=== PATIENT | male | born 1970 | race Caucasian/White ===

== ENCOUNTER 2019-12-15 18:22 | Emergency (ER) | payer OTHER, SELFPAY ==
--- NOTE | 2019-12-15 18:30 | ED.GENADULT ---
HPI - General Adult General Chief complaint: Skin/Abscess/Foreign Body Stated complaint: rash Time Seen by Provider: 12/15/19 18:49 Source: patient Mode of arrival: ambulatory Limitations: no limitations History of Present Illness HPI narrative: 49-year-old male patient presents to the [facility] with complaints of poison alfred and poison sumac for the past 3 to 4 days. Patient states is all over his face, bilateral arms, scalp and upper chest. Patient states that is been very itchy. Patient states he has been trying to use a special wash as well as some [id number] poison alfred ointment. Patient states he has had the oral steroids for this before the past and feels that they do not work as well as the shot. Patient is requesting an IM shot of steroids. Patient did have his left kidney removed due to cancer about a year ago. Patient states he has weaned himself off all of his medications with the help of his doctors and he has been off all of his medications for about a month now due to them upsetting his stomach. Patient states that is another reason why he is not wanting to take oral steroids because he knows that they do upset his stomach. Patient denies any chest pain, shortness of breath, trouble swallowing or any swelling to the lips or face. Related Data Allergies Allergy/AdvReac Type Severity Reaction Status Date / Time No Known Allergies Allergy Verified 12/22/16 16:27 Review of Systems Review of Systems: Narrative: CONSTITUTIONAL: Denies fever, chills, or sweats. EYES: Denies visual changes, redness, or discharge. ENT: Denies rhinorrhea, congestion, sore throat, or otalgia. CARDIOVASCULAR: Denies chest pain, palpitations, or edema. RESPIRATORY: Denies cough or dyspnea. GASTROINTESTINAL: Denies abdominal pain, nausea, vomiting, or diarrhea. GENITOURINARY: Denies dysuria or hematuria. SKIN: Positive rash with itching x3 to 4 days to face, scalp, bilateral upper extremities and upper chest MUSCULOSKELETAL: Denies back pain, joint pain, or myalgia. NEUROLOGIC: Denies headache, numbness, or weakness. PSYCHIATRIC: Denies anxiety or depression. [facility] Past Medical History Medical History CKD (chronic kidney disease), stage III HLD (hyperlipidemia) Social History Social History Smoking status: Former smoker Alcohol intake: never Gender identity (if verbalized by the patient): Male Comments At the time of my signature I agree with nursing past medical history, surgical, social, and family history. There is no relevant family history pertinent to the presenting complaint. Exam Narrative: Exam Narrative: GENERAL: Well-appearing, well-nourished, and in no acute distress. HEAD: Normocephalic, atraumatic. EYES: PERRLA and EOMI. ENT: Nares clear, no rhinorrhea or epistaxis. Mucous membranes moist. NECK: Supple. No lymphadenopathy CHEST: Clear to auscultation. No respiratory distress. HEART: Regular rate and rhythm. No murmur heard. Normal peripheral pulses. ABDOMEN: Soft, nontender, nondistended, normal active bowel sounds. EXTREMITIES: Normal range of motion. No edema. SKIN: Warm, dry, patient has a linear type rashes in various areas to the bilateral upper extremities as well as some swelling and erythema noted to bilateral face. Patient complaining of itching to the scalp nothing obvious seen on the scalp. Patient is a darker skin so it is hard to tell. No obvious rash noted to the back or chest.. NEURO: No focal deficits. Alert and oriented x3. Course Vital Signs Vital signs: Vital Signs Temperature 35.8 C L 12/15/19 18:32 Pulse Rate 66 12/15/19 18:32 Respiratory Rate 16 12/15/19 18:32 Blood Pressure 117/74 12/15/19 18:32 Pulse Oximetry 99 12/15/19 18:32 Temperature 35.8 C L 12/15/19 18:32 Pulse Rate 66 12/15/19 18:32 Respiratory Rate 16 12/15/19 18:32 Blood Pressure
[2019-12-15 18:32] VITALS: BP 117/74; PULSE 66; RESP 16; TEMP 35.8; O2SAT 99
[2019-12-15] MEDS: methylPREDNISolone ACETATE 80 MG/ML VIAL IM (19:14)
== END 2019-12-15 19:25 | disposition home or self-care (01) ==
PROVIDERS: Emergency Provider Nurse Practitioner Family; PCP Emergency Medicine
DX: L25.5 Unspecified contact dermatitis due to plants, except food (principal); Z87.891 Personal history of nicotine dependence; I12.9 Hypertensive chronic kidney disease with stage 1 through stage 4 chronic kidney disease, or unspecified chronic kidney disease; N18.3 Chronic kidney disease, stage 3 (moderate); Z85.528 Personal history of other malignant neoplasm of kidney; Z85.51 Personal history of malignant neoplasm of bladder; Z90.5 Acquired absence of kidney
CPT/HCPCS: 96372; 99213; G0463; J1040

== ENCOUNTER 2020-01-23 18:20 | Emergency (ER) | payer OTHER, SELFPAY ==
--- NOTE | ~2020-01-23 | XR_ITS ---
EXAMINATION: XR hand LT min 3V EXAM DATE: 01/23/2020 19:01 INDICATION: Left hand pain, Cut With Chainsaw 2 Days Go, Pain Near Wrist. TECHNIQUE: Left hand frontal, lateral and oblique projections obtained and reviewed. There is no anton or study for comparison. FINDINGS: Left metacarpal bones are unremarkable. There are no acute fractures or dislocations ident ified. There is no subcutaneous gas. The soft tissue is unremarkable. There are no radiopaque for eign bodies. IMPRESSION: No acute osseous findings. Reviewed, dictated and finalized at location A. IMPRESSION: No acute osseous findings.
[2020-01-23 18:32] VITALS: BP 152/79; PULSE 70; RESP 18; TEMP 36.4; O2SAT 98
--- NOTE | 2020-01-23 18:37 | ED.ABDPAIN ---
HPI - Abdominal Pain General Chief Complaint: Extremity Injury, Upper Stated Complaint: L HAND INJURY 2D AGO Time Seen by Provider: 01/23/20 18:22 Source: patient Mode of arrival: ambulatory Limitations: no limitations History of Present Illness HPI narrative: Patient is a 49-year-old male who presents with hand injuries that occurred 2 days ago while using a chainsaw sustaining multiple lacerations abrasions to the palmar aspect of the left hand at the proximal aspect of the palm patient notes he has been washing and cleaning the wound patient is unsure to his tetanus status patient notes aching pain worse with touch activity and movement denies any erythema lymphangitic streaking fever chills. Related Data Allergies Allergy/AdvReac Type Severity Reaction Status Date / Time No Known Allergies Allergy Verified 01/23/20 18:38 Review of Systems Review of Systems: All systems reviewed & are unremarkable except as noted in HPI and below PMFSH Past Medical History Medical History (Updated 01/23/20 @ 18:39 by Gamaliel Dominique PA-C) CKD (chronic kidney disease), stage III HLD (hyperlipidemia) Social History Social History Smoking status: Former smoker Alcohol intake: never Gender identity (if verbalized by the patient): Male Exam Narrative: Exam Narrative: GENERAL: Well-appearing, well-nourished, and in no acute distress. HEAD: Normocephalic, atraumatic. EYES: PERRLA and EOMI. ENT: Nares clear, no rhinorrhea or epistaxis. Mucous membranes moist. EXTREMITIES: Normal range of motion. No edema. Several small linear lacerations of the palmar aspect of the left hand with slight swelling no erythema no fluctuance purulence lymphangitic streaking noted SKIN: Warm, dry, no rash. NEURO: No focal deficits. Alert and oriented x3. Neurovascularly intact. Capillary refill less than 2 seconds. Normal range of motion and strength of the hand and fingers PSYCH: Normal mood and affect. Course Course Emergency Course: Patient in the room in no distress had x-ray tightness and antibiotics given in the emergency department given hand surgery follow-up agreeing to follow-up as instructed also given reasons to return Vital Signs Vital signs: Vital Signs Temperature 97.5 F L 01/23/20 18:32 Pulse Rate 70 01/23/20 18:32 Respiratory Rate 18 10/23/20 18:32 Blood Pressure 152/79 H 01/23/20 18:32 Pulse Oximetry 98 01/23/20 18:32 Temperature 97.5 F L 01/23/20 18:32 Pulse Rate 70 01/23/20 18:32 Respiratory Rate 18 01/23/20 18:32 Blood Pressure 152/79 H 01/23/20 18:32 Pulse Oximetry 98 01/23/20 18:32 MDM - Abdominal Pain MDM Narrative Medical decision making narrative: Patients injury or pain is consistent with musculoskeletal etiology. No signs of neurological or vascular compromise on exam. Compartments and tisues are soft without signs of compartment syndrome. Pain is felt appropriate for further evaluation on an outpatient basis. Due to the delayed presentation patient will be placed on antibiotics and referred to hand surgery for discussion of delayed closure Imaging Data Radiologist's impression: ITS Impressions Hand X-Ray 01/23/20 19:04 IMPRESSION: No acute osseous findings. Discharge Plan Discharge Clinical Impression: Hand laceration Patient Disposition: Home, Self-Care Condition: Stable Instructions: Antibiotic Form, Acute Wounds (ED) Additional Instructions: Follow-up with hand surgery in the next 3 days to set up for reevaluation take antibiotics as directed. return if symptoms worsen or concerns, any increase in redness swelling pain or fever over 100.5 Clean wound with mild soapy water. Apply antibiotic ointment and clean dressing at least three times daily Follow patient education sheets Prescriptions: New cephalexin [Keflex] 500 mg capsule 500 mg PO Q8H 8 Days Qty: 24 RF: 0 chlorhexidine
[2020-01-23] MEDS: TETANUS,DIPHTHERIA,AC PERTUSSIS ADULT (0.5 ML) BOOSTRIX IM (18:58)
[2020-01-23] MEDS: ceFAZolin SODIUM 1 GM VIAL IM (18:58)
== END 2020-01-23 20:02 | disposition home or self-care (01) ==
PROVIDERS: Emergency Provider Emergency Medicine; PCP Emergency Medicine
DX: S61.412A Laceration without foreign body of left hand, initial encounter (principal); N18.9 Chronic kidney disease, unspecified; E78.5 Hyperlipidemia, unspecified; Z87.891 Personal history of nicotine dependence; Z23 Encounter for immunization; W29.3XXA Contact with powered garden and outdoor hand tools and machinery, initial encounter
CPT/HCPCS: 73130; 90471; 90715; 96372; 99283; J0690

== ENCOUNTER 2021-11-08 20:01 | Emergency (ER) | payer OTHER, SELFPAY ==
--- NOTE | ~2021-11-08 | XR_ITS ---
EXAM: XR knee LT min 4V DATE: 11/08/2021 22:52 HISTORY: left knee laceration . COMPARISON: None available. FINDINGS: Normal mineralization. No fracture or dislocation. No lytic or blastic lesion. Joint space s are maintained. No erosion or periosteal change. Anterior soft tissue laceration. IMPRESSION: No acute osseous finding in the left knee. Reviewed, dictated and finalized at location K.
[2021-11-08 20:20] VITALS: BP 129/86; PULSE 87; RESP 16; TEMP 36.2; O2SAT 100
--- NOTE | 2021-11-08 22:38 | ED.WOUNDLAC ---
HPI - Wound/Laceration General Chief Complaint: Wound/Laceration <Maude Hatch PA-C - Last Filed: 11/08/21 23:25> Stated Complaint: left leg laceration with chainsaw <LOIDA Crocker Last Filed: 11/08/21 23:25> Time Seen by Provider: 11/08/21 22:31 <LOIDA Crocker Last Filed: 11/08/21 23:25> Source: patient <LOIDA Crocker Last Filed: 11/08/21 23:25> Mode of arrival: ambulatory <LOIDA Crocker Last Filed: 11/08/21 23:25> Limitations: no limitations <LOIDA Crocker Last Filed: 11/08/21 23:25> History of Present Illness HPI narrative: This is a 51 year old male that presents to the ER for a laceration to the left knee sustained just prior to arrival. Reports he accidentally cut his left leg with a chainsaw. He is up-to-date on tetanus. Denies decreased range of motion or numbness. <LOIDA Crocker Last Filed: 11/08/21 23:25> Related Data Home Medications: Home Medications Medication Instructions Recorded Confirmed prednisone 10 mg tablet mg 11/08/21 <LOIDA Crocker Last Filed: 11/08/21 23:25> Allergies/Adverse Reactions: Allergies Allergy/AdvReac Type Severity Reaction Status Date / Time No Known Allergies Allergy Verified 11/08/21 22:41 <LOIDA Crocker Last Filed: 11/08/21 23:25> Review of Systems Review of Systems: CONSTITUTIONAL: Denies fever SKIN: Reports laceration NEUROLOGIC: Denies numbness <LOIDA Crocker Last Filed: 11/08/21 23:25> All systems reviewed & are unremarkable except as noted in HPI and below <LOIDA Crocker Last Filed: 11/08/21 23:25> [facility] Past Medical History Medical History: Medical History (Updated 11/09/21 @ 00:00 by Background Daemon) CKD (chronic kidney disease), stage III HLD (hyperlipidemia) <Maude Hatch PA-C - Last Filed: 11/08/21 23:25> Social History Social History: Social History (Updated 11/08/21 @ 22:40 by Maude Hatch PA-C) Smoking status: Current every day smoker Alcohol intake: never Gender identity (if verbalized by the patient): Male <Maude Hatch PA-C - Last Filed: 11/08/21 23:25> Exam Narrative: GENERAL: Well-appearing, well-nourished, and in no acute distress. HEAD: Normocephalic, atraumatic. EYES: EOMI. EXTREMITIES: Normal range of motion. No edema or obvious deformity. Left leg just above the knee with 3cm linear laceration into subcutaneous tissue SKIN: Warm, dry, no rash. NEURO: No focal deficits. Alert and oriented x3. PSYCH: Normal mood and affect <Maude Hatch PA-C - Last Filed: 11/08/21 23:25> Course POCKET CLOSER/PA Physician Supervision For this patient encounter, I reviewed the POCKET CLOSER or PA documentation, treatment plan, and medical decision making <Ethan Deluca MD - Last Filed: 11/09/21 03:17> Vital Signs Vital signs: Vital Signs Temperature 97.2 F L 11/08/21 20:20 Pulse Rate 87 11/08/21 20:20 Respiratory Rate 16 11/08/21 20:20 Blood Pressure 129/86 11/08/21 20:20 Pulse Oximetry 100 11/08/21 20:20 Temperature 97.2 F L 11/08/21 20:20 Pulse Rate 87 11/08/21 20:20 Respiratory Rate 16 11/08/21 20:20 Blood Pressure 129/86 11/08/21 20:20 Pulse Oximetry 100 11/08/21 20:20 <Maude Hatch PA-C - Last Filed: 11/08/21 23:25> Vital Signs Temperature 97.2 F L 11/08/21 20:20 Pulse Rate 87 11/08/21 20:20 Respiratory Rate 16 11/08/21 20:20 Blood Pressure 129/86 11/08/21 20:20 Pulse Oximetry 100 11/08/21 20:20 Temperature 97.2 F L 11/08/21 20:20 Pulse Rate 87 11/08/21 20:20 Respiratory Rate 16 11/08/21 20:20 Blood Pressure 129/86 11/08/21 20:20 Pulse Oximetry 100 11/08/21 20:20 <Ethan Deluca MD - Last Filed: 11/09/21 03:17> Procedures Laceration Laceration 1: Date: 11/08/21 <Maude Hatch PA-C - Last Filed: 11/08/21 23:25> Time:
[2021-11-08] MEDS: HYDROcodone/acetaminophen (*CRX) 5-325 MG TABLET 1 TAB PO (23:24)
== END 2021-11-08 23:30 | disposition home or self-care (01) ==
PROVIDERS: Emergency Provider Emergency Medicine; PCP Emergency Medicine
DX: S81.012A Laceration without foreign body, left knee, initial encounter (principal); W29.3XXA Contact with powered garden and outdoor hand tools and machinery, initial encounter
CPT/HCPCS: 12002; 73564; 99283; A9270

== ENCOUNTER 2022-08-20 12:55 | Emergency (ER) | payer OTHER, SELFPAY ==
[2022-08-20 13:07] VITALS: BP 136/92; PULSE 86; RESP 17; TEMP 36.8; O2SAT 100
--- NOTE | 2022-08-20 13:35 | ED.GENADULT ---
HPI - General Adult General Chief complaint: Dental/Oral Stated complaint: tooth infection Time Seen by Provider: 08/20/22 13:16 History of Present Illness HPI narrative: Juan Valencia is a 52 y/o male who presents with reports of ongoing dental pain that started about a month ago. He saw a dentist a month ago and was getting set up to have his teeth removed, but he has not heard back. He reports his dental pain has become worse the past few days so he came in here. Related Data Allergies Allergy/AdvReac Type Severity Reaction Status Date / Time No Known Allergies Allergy Verified 08/20/22 12:55 Review of Systems Review of Systems: CONSTITUTIONAL: Denies fever, chills, or sweats. EYES: Denies visual changes, redness, or discharge. ENT: Upper and lower tooth pain for 1 month that is worse over the past few days. CARDIOVASCULAR: Denies chest pain, palpitations, or edema. RESPIRATORY: Denies cough or dyspnea. GASTROINTESTINAL: Denies abdominal pain, nausea, vomiting, or diarrhea. GENITOURINARY: Denies dysuria or hematuria. SKIN: Denies rash or itching. MUSCULOSKELETAL: Denies back pain, joint pain, or myalgia. NEUROLOGIC: Denies headache, numbness, dizziness, or weakness. PSYCHIATRIC: Denies anxiety or depression. [facility] Past Medical History Medical History (Updated 08/20/22 @ 14:08 by Leeann Woods APRN) CKD (chronic kidney disease), stage III HLD (hyperlipidemia) Social History Social History Smoking status: Current every day smoker Alcohol intake: never Gender identity (if verbalized by the patient): Male Exam Narrative: GENERAL: Well-appearing, well-nourished, and in no acute distress. HEAD: Normocephalic, atraumatic. EYES: PERRLA and EOMI. ENT: Nares clear, no rhinorrhea or epistaxis. Mucous membranes moist. Oropharynx without tonsillar hypertrophy exudate or other lesions. Patient noted to have dental infection/ carries to left upper and right lower. No obvious abscess noted that needs to be drained today., NECK: Supple. No adenopathy or masses. CHEST: Clear to auscultation. No respiratory distress. No wheezes rales or rhonchi HEART: Regular rate and rhythm. No murmur heard. Normal peripheral pulses. ABDOMEN: Soft, nontender, nondistended, normal active bowel sounds. EXTREMITIES: Normal range of motion. No edema. SKIN: Warm, dry, no rash. NEURO: No focal deficits. Alert and oriented x3. PSYCH: Normal mood and affect. Course Vital Signs Vital signs: Vital Signs Temperature 36.8 C 08/20/22 13:07 Pulse Rate 86 08/20/22 13:07 Respiratory Rate 17 08/20/22 13:07 Blood Pressure 136/92 H 08/20/22 13:07 Pulse Oximetry 100 08/20/22 13:07 Oxygen Delivery Room Air 08/20/22 13:07 Temperature 36.8 C 08/20/22 13:07 Pulse Rate 86 08/20/22 13:07 Respiratory Rate 17 08/20/22 13:07 Blood Pressure 136/92 H 08/20/22 13:07 Pulse Oximetry 100 08/20/22 13:07 Oxygen Delivery Room Air 08/20/22 13:07 vitals reviewed by me Medical Decision Making MDM Narrative Medical decision making narrative: patient with complaints of dental pain Notable dental decay on exam No airway compromise No obvious abscess needing to be drained. No fever/ chills Plan to treat his pain and start him on oral antibiotics with strict instruction to follow up with his dentist tomorrow to get the appointment scheduled to have his teeth removed. Pateint agrees with plan. Differential Diagnosis Differential Diagnosis: Dental infection / Dental abscess/ tooth decay Vital Signs Vital Signs: Vital Signs Temperature 36.8 C 08/20/22 13:07 Pulse Rate 86 08/20/22 13:07 Respiratory Rate 17 08/20/22 13:07 Blood Pressure 136/92 H 08/20/22 13:07 Pulse Oximetry 100 08/20/22 13:07 Oxygen Delivery Room Air 08/20/22 13:07 Temperature 36.8 C 08/20/22 13:07 Pulse Rate 86 08/20/22 13:07 Respiratory Ra
[2022-08-20] MEDS: HYDROcodone/acetaminophen (*CRX) 5-325 MG TABLET 1 TAB PO (13:43)
[2022-08-20] MEDS: PENICILLIN V POTASSIUM 250 MG TABLET 500 MG PO (13:44)
[2022-08-20] MEDS: LIDOCAINE HCL 2% VISC SOLN 15 ML UDC 10 ML PO (13:48)
[2022-08-20] MEDS: NAPROXEN 500 MG TABLET PO (13:51)
== END 2022-08-20 14:24 | disposition home or self-care (01) ==
PROVIDERS: Emergency Provider Nurse Practitioner Family; PCP Emergency Medicine
DX: K04.7 Periapical abscess without sinus (principal); K02.9 Dental caries, unspecified; N18.30 Chronic kidney disease, stage 3 unspecified; E78.5 Hyperlipidemia, unspecified; F17.200 Nicotine dependence, unspecified, uncomplicated
CPT/HCPCS: 99283; A9270

== ENCOUNTER 2022-08-22 14:42 | Outpatient (CLI) | payer OTHER, SELFPAY ==
--- NOTE | ~2022-08-22 | US_ITS ---
US scrotum doppler INDICATION: Testicular pain TECHNIQUE: Testicular sonogram utilizing grayscale and color Doppler FINDINGS: The testes are normal in size and appearance. No focal lesions are seen. The right testes measures 4.8 x 1.8 x 2.7 cm centimeters, and the left testis measures 4 x 1.8 x 2.5 cm cm. There is n ormal vascular flow to both testes. The right and left epididymides appear normal. There are bilateral varicoceles. No significant hydrocele. IMPRESSION: 1. Bilateral varicoceles. Reviewed, dictated and finalized at location L. IMPRESSION: 1. Bilateral varicoceles.
== END 2022-08-22 14:43 | disposition home or self-care (01) ==
LOC: ANHIMG 14:42
PROVIDERS: PCP Emergency Medicine; Visit Provider Emergency Medicine
DX: N50.819 Testicular pain, unspecified (principal); I86.1 Scrotal varices
CPT/HCPCS: 76870; 93976

== ENCOUNTER 2022-08-29 10:10 | Emergency (ER) | payer OTHER, SELFPAY ==
[2022-08-29] VITALS (13 sets, daily range): BP systolic 118–144; BP diastolic 78–97; PULSE 42–73; RESP 11–18; TEMP 36.4; O2SAT 99–100
--- NOTE | ~2022-08-29 | CT_ITS ---
EXAMINATION: CT brain wo con DATE: 08/29/2022 13:01 INDICATION: Bladder cancer. Confusion. TECHNIQUE: Computed tomography (CT) of the head was performed without intravenous contrast. The mA wa s adjusted according to patient size. Iterative reconstruction technique was employed. The dose-lengt h product was 681.00 mGy-cm. COMPARISON: None FINDINGS: There is a 2.0 x 1.7 cm hyperdense mass in right parietal lobe with surrounding vasogenic e darien. There is no acute ischemic infarct. There is 8 mm leftward midline shift at the foramen of Monr o. There is mass effect on the ventricles. There is mild mucosal thickening in the paranasal sinuses. The mastoid air cells are normal. There is cerumen in the external auditory canals. IMPRESSION: 1. 2.0 cm hyperdense mass in right parietal lobe, consistent metastatic disease. 2. 8 mm leftward midline shift. Reviewed, dictated and finalized at location L. IMPRESSION: 1. 2.0 cm hyperdense mass in right parietal lobe, consistent metastatic disease . 2. 8 mm leftward midline shift.
--- NOTE | ~2022-08-29 | CT_ITS ---
EXAMINATION: CTA chest PE abdomen pel DATE: 08/29/2022 13:05 INDICATION: Bladder cancer. Shortness of breath. TECHNIQUE: Computed tomography angiography (CTA) of the chest was performed with 100 mL Omnipaque-350 intravenous contrast timed to evaluate the pulmonary arteries. Coronal maximum intensity projection 3D-reconstructions were created by the technologist. Computed tomography (CT) of the abdomen and pelv is was performed with intravenous contrast. Automated exposure control and iterative reconstruction t echnique were employed. The dose-length product was 725.10 mGy-cm. COMPARISON: CT abdomen and pelvis 05/24/2018 FINDINGS: CTA chest: There are greater than 10 nodules and masses in the lungs measuring up to 3.3 cm in perihi lar right middle lobe. There is mild atelectasis bilaterally. No pleural effusion. The heart size is normal. No pericardial effusion. There are no pathologically enlarged lymph nodes. Is no pulmonary em bolus. There is a 4.6 x 3.9 cm expansile lytic lesion of left second rib. CT abdomen and pelvis: The liver, gallbladder, spleen, pancreas, adrenal glands, and right kidney are normal. There are changes of left nephrectomy. There are no dilated loops of bowel. The appendix is not visualized. There are no pathologically enlarged lymph nodes. There is no free intraperitoneal fl uid. There is a lytic lesion in L1 vertebral body with involvement of the epidural space and left for amen with severe left neural foraminal stenosis and mild central canal stenosis. There is mild lumbar spondylosis. IMPRESSION: 1. Pulmonary nodules and masses and bone lesions, consistent metastatic disease. Reviewed, dictated and finalized at location L. IMPRESSION: 1. Pulmonary nodules and masses and bone lesions, consistent metastatic disease .
--- NOTE | ~2022-08-29 | XR_ITS ---
Portable chest x-ray Comparison: 05/12/2018 Clinical History: Chest pain, recently diagnosed with bladder cancer Findings: There is a 1.7 cm possibly calcified right midlung pulmonary nodule, new from prior exam. There is suggestion of a pleural-based or possibly subpleural masslike density at the left lung apex. Cardiomediastinal silhouette is stable. Bones and soft tissues are unremarkable. Impression: 4.8 cm pleural-based or subpleural masslike density at the left lung apex. Contrast-enhanced chest CT recommended for further evaluation. Given history of recently diagnosed bladder cancer, metastasis i s diagnostic consideration. 1.7 cm possibly calcified right midlung pulmonary nodule. Metastasis is not excluded. This could also be further assessed at CT scan. Reviewed, dictated and finalized at [facility]. Impression: 4.8 cm pleural-based or subpleural masslike density at the left lung apex. Cont rast-enhanced chest CT recommended for further evaluation. Given history of rec ently diagnosed bladder cancer, metastasis is diagnostic consideration. 1.7 cm possibly calcified right midlung pulmonary nodule. Metastasis is not exc luded. This could also be further assessed at CT scan.
--- NOTE | 2022-08-29 10:37 | ECG_ITS ---
Measurements Intervals Hughes Rate: 58 P: 78 RI: 164 QRS: 37 QRSD: 98 T: 62 QT: 408 QTc: 403 Interpretive Statements SINUS BRADYCARDIA CANNOT RULE OUT SEPTAL INFARCT, AGE INDETERMINATE BASELINE ARTIFACT- I, II, AVR, AVL, AVF ABNORMAL ECG NO PREVIOUS ECG AVAILABLE FOR COMPARISON Electronically Signed On 08-29-2022 12:11:02 CDT by Francesco Jha D.O.
[2022-08-29 11:07] LABS: Basophils Percent Auto 0.4 % (0.2-1.2); Eosinophils Percent Auto 0.3 % (0-4.4); Hematocrit 36.2 % (42.0-52.0); Hemoglobin 11.2 g/dL (14.0-18.0); Immature Granulocyte Absolute 0.03 K/mm3 (0.00-0.031); Immature Granulocyte Percent A 0.3 % (0-0.5); Lymphocytes Absolute Auto 1.37 K/mm3 (0.9-3.2); Lymphocytes Percent Auto 13.2 % (18.3-44.2); Mean Corpuscular HGB Conc 30.9 g/dl (32-36); Mean Corpuscular Hemoglobin 27.8 pg (26-34); Mean Corpuscular Volume 89.8 fl (80-100); Mean Platelet Volume 9.2 fl (7.4-10.4); Monocytes Absolute Auto 0.7 K/mm3 (0.1-0.6); Monocytes Percent Auto 6.5 % (2.6-8.5); Neutrophils Absolute Auto 8.2 K/mm3 (1.3-6.7); Neutrophils Percent Auto 79.3 % (45.5-73.1); Platelet Count Result 336 k/mm3 (150-375); Red Blood Count 4.03 M/mm3 (4.6-6.20); Red Cell Distribution Width 14.5 % (11.5-14.5); White Blood Count 10.4 K/mm3 (4.5-10.0)
[2022-08-29] MEDS: SODIUM CHLORIDE 0.9% IV 1,000 ML 999 ML IV CONT (11:13)
[2022-08-29 11:23] LABS: INR 1.1; Prothrombin Time 14.5 Seconds (11.1-14.7)
[2022-08-29 11:24] LABS: Partial Thromboplastin Time 37.7 SECONDS (22.3-36.8)
[2022-08-29 11:34] LABS: Ethanol < 10 mg/dL (<10)
[2022-08-29 11:35] LABS: Alanine Aminotransferase 16 U/L (6-50); Albumin Level 3.9 g/dL (3.5-5.1); Alkaline Phosphatase 85 U/L (38-126); Anion Gap 9 mmol/L (8-16); Aspartate Amino Transferase 20 U/L (17-59); Bilirubin,Total 0.4 mg/dL (0.2-1.3); Blood Urea Nitrogen 13 mg/dL (9-20); Calcium 9.5 mg/dL (8.4-10.2); Carbon Dioxide 26 mmol/L (22-30); Chloride 104 mmol/L (98-107); Estimated CRCL calculation 76 ml/min; Estimated Glomerular Filt Rate > 60; Glucose 114 mg/dL (65-110); Lipase 76 U/L (23-300); Sodium 139 mmol/L (137-145)
[2022-08-29 11:46] LABS: NT Pro B Type Natriuretic Pept 398 pg/mL (19.9-100); Troponin I < 0.012 ng/mL (0.000-0.034)
[2022-08-29 12:02] LABS: SARS-CoV-2 RNA PCR Negative (Negative)
--- NOTE | 2022-08-29 12:41 | ED.GENADULT ---
HPI - General Adult General Chief complaint: Unspecified Stated complaint: MULTIPLE COMPLAINTS Time Seen by Provider: 08/29/22 10:24 Source: patient, family, RN notes reviewed and old records reviewed Mode of arrival: ambulatory Limitations: no limitations History of Present Illness HPI narrative: This is a 52 year old male with history of recurrent bladder cancer and renal cell carcinoma who presents for evaluation of homicidal ideations and dizziness. Patient reports long standing dental pain and right jaw pain. He was evaluated 1 week ago for his jaw pain and he was prescribed naproxen and penicillin. He states that he is frustrated with dentist and he states that he wants to kill the dentist. He also told his significant other that he was tired of being pain so he was going to shoot his brains out. Patient denies suicidal thoughts now. There is no access to firearm in home. They also reports dizziness and intermittent episodes in which he does not seem like himself. He reports nausea and vomiting over the past 2 days. He has intermittent right side chest pain and shortness of breath. He denies fever or chills. Related Data Allergies Allergy/AdvReac Type Severity Reaction Status Date / Time No Known Allergies Allergy Verified 08/20/22 12:55 Review of Systems Constitutional: Constitutional: Reports fatigue and Reports weakness ENT: Reports dental pain and Reports facial pain Cardiovascular: Cardiovascular: Denies syncope, Denies rapid heart rate, Denies irregular heart rhythm, Denies leg edema and Reports dyspnea Respiratory: Respiratory: Denies chest congestion, Denies hemoptysis, Denies excessive phlegm production and Reports dyspnea Gastrointestinal: Gastrointestinal: Denies abdominal pain, Denies hematochezia, Denies diarrhea, Reports nausea and Reports vomiting Genitourinary: Genitourinary: Denies hematuria, Denies dysuria, Denies penile discharge and Denies testicular pain Musculoskeletal: Musculoskeletal: Denies joint swelling, Denies loss of height and Denies muscle weakness Neurologic: Denies syncope, Reports headache(s), Denies focal weakness and Denies weakness Psychiatric: Psychiatric: Reports homicidal ideation and Reports suicidal ideation [facility] Past Medical History Medical History (Updated 08/29/22 @ 19:31 by Paulette Canseco MD) Bladder tumor CKD (chronic kidney disease), stage III Essential hypertension HLD (hyperlipidemia) Hypertension Mixed hyperlipidemia Renal cell cancer Surgical History Surgical History (Updated 08/29/22 @ 12:52 by Paulette Canseco MD) History of nephrectomy Social History Social History Smoking status: Current every day smoker Alcohol intake: never Gender identity (if verbalized by the patient): Male Exam Narrative: GENERAL: Well-appearing, well-nourished, and in no acute distress. HEAD: Normocephalic, atraumatic EYES: PERRLA and EOMI, conjunctiva clear without discharge EARS: TM's clear bilaterally without erythema or dullness NOSE: Nares clear, no rhinorrhea or epistaxis THROAT:Mucous membranes moist, Oropharynx normal without erythema, exudate, peritonsillar swelling or fluctuance NECK: Supple, without lymphadenopathy or mass RESPIRATORY: No respiratory distress, Airway patent, Respirations non-labored, Clear to auscultation without rales, rhonchi or wheeze HEART: Regular rate and rhythm. No murmur heard. Normal peripheral pulses. ABDOMEN: Soft, nontender, nondistended, normal active bowel sounds. No masses. No rebound or guarding, No organomegaly. EXTREMITIES: No edema, normal strength with full range of motion. SKIN: Warm, dry, normal color without rash NEURO: Alert and oriented x3. CN 2-12 grossly intact. No focal deficits. PSYCH: Normal mood and affect. Course Reevaluation(s) Reevaluation #1: Patient has been awaiting transfer to [facility] for brain mets. I have discussed with
[2022-08-29 12:48] LABS: Appearance Urine Clear (Clear); Bacteria Urine None Seen /hpf; Bilirubin Urine Negative (Negative); Blood Urine 3+ (Negative); Color Urine Yellow (Yellow); Glucose Urine UA Negative (Negative); Ketones Urine Negative (Negative); Leukocyte Esterase Ur Negative LEU/UL (Negative); Nitrate Urine Negative (Negative); Non Pathogenic Casts 0-2; Protein Urine 2+ mg/dL (Negative); RBC Urine >100 /hpf (0-2); Squamous Epithelial Cell Urine None seen /hpf (Few); WBC Urine 0-5 /hpf
[2022-08-29 12:54] LABS: Add Urine Microscopic? YES
[2022-08-29 13:00] LABS: Amphetamine Screen Urine Negative (Negative); Barbiturate Screen Urine Negative (Negative); Benzodiazepines Screen Urine Negative (Negative); Cannabinoid Screen Urine Positive (Negative); Cocaine Screen Urine Negative (Negative); Methadone Screen Urine Negative (Negative); Opiate Screen Urine Negative (Negative); Phencyclidine Screen Urine Negative (Negative)
[2022-08-29] MEDS: ONDANSETRON INJ 4 MG/2 ML VIAL IV PUSH (14:22)
[2022-08-29] MEDS: MORPHINE SULFATE (*CRX) 4 MG/ML INJ 6 MG IV PUSH (14:23)
[2022-08-29] MEDS: MORPHINE SULFATE (*CRX) 4 MG/ML INJ IV PUSH (22:20)
== END 2022-08-29 23:45 | disposition short-term general hospital (02) ==
PROVIDERS: Emergency Provider General Practice; PCP Emergency Medicine
DX: C79.31 Secondary malignant neoplasm of brain (principal); C67.9 Malignant neoplasm of bladder, unspecified; Z20.822 Contact with and (suspected) exposure to COVID-19; I12.9 Hypertensive chronic kidney disease with stage 1 through stage 4 chronic kidney disease, or unspecified chronic kidney disease; N18.30 Chronic kidney disease, stage 3 unspecified; E78.2 Mixed hyperlipidemia; Z90.5 Acquired absence of kidney; Z85.528 Personal history of other malignant neoplasm of kidney; F17.200 Nicotine dependence, unspecified, uncomplicated; R00.1 Bradycardia, unspecified; R94.31 Abnormal electrocardiogram [ECG] [EKG]; R91.8 Other nonspecific abnormal finding of lung field; M89.9 Disorder of bone, unspecified
CPT/HCPCS: 36415; 70450; 71045; 71275; 74177; 80053; 80307; 81001; 83690; 83880; 84443; 84484; 85025; 85380; 85610; 85730; 87635; 93005; 96361; 96374; 96375; 96376; 99291; J2270; J2405; J7030; Q9967

== ENCOUNTER 2023-05-21 21:03 | Emergency (ER) | payer OTHER, SELFPAY ==
--- NOTE | ~2023-05-21 | CT_ITS ---
Clinical Indication: Shortness of breath CT Scan of the Chest with Contrast: Technique: Contiguous sections were acquired throughout the chest after intravenous administration of 100 cc of Omnipaque 350. Dose reduction technique was used on this scan by utilizing automated expos ure control and iterative reconstruction technique. The dose-length product (DLP) was 231.87 mGy-cm. COMPARISON: 08/29/2022 Findings: There is no evidence of any significant mediastinal, hilar or axillary lymphadenopathy. There is no f illing defect in the pulmonary arterial tree to suggest pulmonary embolus. There is no evidence of ao rtic aneurysm. Small pericardial effusion. No pleural effusions.. The lungs are clear. No pulmonary nodules or infiltrates are noted. Images through the upper abdomen reveal no abnormalities. Expansile lytic/destructive lesion of the l eft second rib noted. Partial versus lytic lesion of the L2 vertebral body present. Impression: No evidence of pulmonary embolus. Clear lungs. Lytic/expansile lesions of the left second rib at L2 vertebral body, suspicious for metastatic diseas e. Small pericardial effusion. Reviewed, dictated and finalized at [facility]. TYPIST Impression: No evidence of pulmonary embolus. Clear lungs. Lytic/expansile lesions of the left second rib at L2 vertebral body, suspicious for metastatic disease. Small pericardial effusion.
--- NOTE | ~2023-05-21 | XR_ITS ---
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 RESULT: Lines, tubes, and devices: None. Lungs and pleura: Mild diffuse reticular opacities and cuffing. No pulmonary nodules identified. No focal consolidation, effusion, or pneumothorax. Cardiomediastinal silhouette: Stable. Other: No acute osseous or upper abdominal finding. Increased calcification and slightly decreased s ize of the left apical rib lesion. IMPRESSION: Pulmonary opacities may represent bronchiolitis, as can be seen with atypical infection, asthma, aspi ration, and small airways disease. Multiple previously detected pulmonary nodules are not seen radiographically, likely indicating inter mauro treatment. Increased calcification and decreased size of the lytic left second rib lesion in the left apex, also likely represent posttreatment change. Reviewed, dictated and finalized at location [facility]. SYSTEM OPERATOR IMPRESSION: Pulmonary opacities may represent bronchiolitis, as can be seen with atypical i nfection, asthma, aspiration, and small airways disease. Multiple previously detected pulmonary nodules are not seen radiographically, l ikely indicating interval treatment. Increased calcification and decreased size of the lytic left second rib lesion in the left apex, also likely represent posttreatment change.
[2023-05-21 21:08] VITALS: BP 107/64; PULSE 121; RESP 15; TEMP 36.2; O2SAT 100
--- NOTE | 2023-05-21 21:16 | ECG_ITS ---
Measurements Intervals [place] Rate: 118 P: 74 KS: 158 QRS: -52 QRSD: 100 T: 71 QT: 341 QTc: 478 Interpretive Statements SINUS TACHYCARDIA POSSIBLE LEFT ATRIAL ENLARGEMENT [-0.1mV P WAVE IN V1/V2] MARKED LEFT AXIS DEVIATION [QRS AXIS < -30] EARLY REPOLARIZATION [ST ELEVATION WITH NORMALLY INFLECTED T WAVE] COMPARED TO ECG 08/29/2022 10:45:47 SINUS TACHYCARDIA NOW PRESENT LEFT-AXIS DEVIATION NOW PRESENT Electronically Signed On 05-22-2023 15:20:47 RETAIL SPECIALIST by Abiodun Floyd M.D.
[2023-05-21 21:35] LABS: Basophils Percent Auto 0.4 % (0.2-1.2); Eosinophils Absolute Auto 0.2 K/mm3 (0-0.3); Eosinophils Percent Auto 2.1 % (0-4.4); Hematocrit 45.7 % (42.0-52.0); Hemoglobin 15.5 g/dL (14.0-18.0); Immature Granulocyte Absolute 0.02 K/mm3 (0.00-0.031); Immature Granulocyte Percent A 0.3 % (0-0.5); Lymphocytes Percent Auto 27.6 % (18.3-44.2); Mean Corpuscular HGB Conc 33.9 g/dl (32-36); Mean Corpuscular Hemoglobin 31.6 pg (26-34); Mean Corpuscular Volume 93.3 fl (80-100); Mean Platelet Volume 9.5 fl (7.4-10.4); Monocytes Percent Auto 12.3 % (2.6-8.5); Neutrophils Absolute Auto 4.6 K/mm3 (1.3-6.7); Neutrophils Percent Auto 57.3 % (45.5-73.1); Platelet Count Result 204 k/mm3 (150-375)
[2023-05-21 21:45] LABS: INR 1.1; Prothrombin Time 14.9 Seconds (11.1-14.7)
[2023-05-21 21:46] LABS: Partial Thromboplastin Time 43.7 SECONDS (22.3-36.8)
[2023-05-21 22:00] LABS: Alanine Aminotransferase 19 U/L (6-50); Albumin Level 4.3 g/dL (3.5-5.1); Alkaline Phosphatase 82 U/L (38-126); Anion Gap 10 mmol/L (8-16); Aspartate Amino Transferase 41 U/L (17-59); Bilirubin,Total 0.7 mg/dL (0.2-1.3); Blood Urea Nitrogen 19 mg/dL (9-20); Calcium 9.9 mg/dL (8.4-10.2); Carbon Dioxide 22 mmol/L (22-30); Chloride 100 mmol/L (98-107); Estimated CRCL calculation 61 ml/min; Estimated Glomerular Filt Rate > 60; Glucose 129 mg/dL (65-110); Lipase 88 U/L (23-300); Potassium 3.9 mmol/L (3.4-5.0); Sodium 132 mmol/L (137-145); Troponin I 0.014 ng/mL (0.000-0.034)
[2023-05-22] VITALS (17 sets, daily range): BP systolic 86–121; BP diastolic 64–84; PULSE 105–115; RESP 20–35; O2SAT 95–99
[2023-05-22 02:10] LABS: Troponin I < 0.012 ng/mL (0.000-0.034)
[2023-05-22 02:22] LABS: Influenza A QL RT-PCR Negative (Negative); Influenza B QL RT-PCR Negative (Negative); RSV RNA, RT-PCR Negative (Negative); SARS-CoV-2 RNA PCR Negative (Negative)
[2023-05-22] MEDS: SODIUM CHLORIDE 0.9% IV 1,000 ML 999 ML IV CONT (02:43)
--- NOTE | 2023-05-22 03:19 | ED.GENADULT ---
HPI - General Adult General Chief complaint: Unspecified <Ethan Deluca MD - Last Filed: 05/23/23 05:59> Stated complaint: back and neck pain <Ethan Deluca MD - Last Filed: 05/23/23 05:59> Time Seen by Provider: 05/22/23 02:36 <Ethan Deluca MD - Last Filed: 05/23/23 05:59> History of Present Illness HPI narrative: 53-year-old male presenting to the emergency department for evaluation of pleuritic chest pain. Patient states on Sunday he began developing neck pain and body aches and that the symptoms resolved but patient has since had chest pain that he states is worsened with inspiration. Patient denies any associated coughs colds or fevers. Patient denies any previous cardiac history. <Ethan Deluca MD - Last Filed: 05/23/23 05:59> Related Data Allergies/adverse reactions: Allergies Allergy/AdvReac Type Severity Reaction Status Date / Time No Known Allergies Allergy Verified 02/12/23 10:37 <Ethan Deluca MD - Last Filed: 05/23/23 05:59> Review of Systems Review of Systems: All systems reviewed & are unremarkable except as noted in HPI and below <Ethan Deluca MD - Last Filed: 05/23/23 05:59> PMFSH Past Medical History Medical History: Medical History Bladder tumor CKD (chronic kidney disease), stage III Essential hypertension HLD (hyperlipidemia) Hypertension Mixed hyperlipidemia Renal cell cancer <Ethan Deluca MD - Last Filed: 05/23/23 05:59> Surgical History Surgical History: Surgical History H/O brain surgery History of nephrectomy <Ethan Deluca MD - Last Filed: 05/23/23 05:59> Social History Social History: Social History Smoking status: Current every day smoker Alcohol intake: never Lack of Transportation: No Lack of Food: Sometimes True Current Housing: I Have Housing Concerned About Future Housing: No Difficulty Paying Gas/Electric Bills: YES Difficulty Paying for Meds: No Difficulty w/ Childcare or Family Care: No Gender identity (if verbalized by the patient): Male <Ethan Deluca MD - Last Filed: 05/23/23 05:59> Exam Narrative: APPEARANCE: Well appearing, no pain, no distress, well-nourished. HEAD: normocephalic, atraumatic. EYES: PERRLA/EOMI, conjunctivae clear. NOSE: Normal no drainage EARS:TMS clear with good light reflex. THROAT: Pharynx clear, no exudate. NECK: Supple. No adenopathy, no masses. RESPIRATORY: Airway patent, respirations nonlabored. Clear to auscultation bilaterally, no rales, rhonchi, wheezing. CARDIOVASCULAR: Regular rate and rhythm without murmurs rubs or gallops. ABDOMINAL: Soft, nontender, nondistended, normal bowel sounds MUSCULOSKELETAL: Moves all extremities. Strength/ROM intact, No edema, No calf tenderness. Reproducible chest wall tenderness to palpation NEURO: Alert. Cranial nerves II through XII intact. Good gait. Good coordination SKIN: Warm, dry. Normal Color <Ethan Deluca MD - Last Filed: 05/23/23 05:59> Course Course Emergency Course: 53-year-old male presenting to emergency department for evaluation for pleuritic chest pain. Patient is afebrile with no leukocytosis and a stable hemoglobin of 15.5. No acute abnormalities on the patient's CMP and patient had negative serial troponin and patient was negative for influenza RSV and COVID. Chest x-ray showed pulmonary opacities may represent bronchiolitis, as can be seen with atypical infection, asthma, aspiration, and small airways disease. CTA showed evidence a pericardial effusion. Patient is established with [facility]/ [facility], patient family were comfortable staying here but discussed the case with the hospitalists and she felt the patient will be better served in the [facility] system. <Ethan Deluca MD - Last Filed:
[2023-05-22] MEDS: HYDROmorphone HCL INJ (*CRX) 1 MG/ML SYR IV PUSH ×2 (03:26→06:07)
[2023-05-22] MEDS: ALBUTEROL SULFATE NEB 2.5 MG/3 ML INH INHALATION (03:36)
--- NOTE | 2023-05-22 05:46 | ECG_ITS ---
Measurements Intervals [place] Rate: 106 P: [place]: 0 QRS: -38 QRSD: 89 T: 64 QT: 337 QTc: 449 Interpretive Statements SINUS TACHCYARDIA MARKED LEFT AXIS DEVIATION [QRS AXIS < -30] SEPTAL MYOCARDIAL INFARCTION , OF INDETERMINATE AGE [40+ ms Q WAVE IN V1/V2] COMPARED TO ECG 05/21/2023 21:22:44 NO SIGNIFICANT CHANGES Electronically Signed On 05-22-2023 15:30:55 MEAT CUTTER by Abiodun Floyd M.D.
[2023-05-22 06:39] LABS: Troponin I < 0.012 ng/mL (0.000-0.034)
--- NOTE | 2023-05-22 06:56 | PC.NURSE ---
Pt accepted at [facility]. This RN spoke to xfr line. Awaiting bed assignment, should be shortly after shift change per xfr line.
--- NOTE | 2023-05-22 07:02 | PC.NURSE ---
Radha in XRAY making disc.
--- NOTE | 2023-05-22 07:12 | PC.NURSE ---
Report given to MICHELLE Alston at this time.
--- NOTE | 2023-05-22 08:55 | PC.NURSE ---
Notified EDP that pt is c/o of pain. Pt states he has been in pain since he has been here. Pt states the [facility] is not working for him and he cant believe he is still in this hospital. Pt states he getting very irritable pt is becoming unpleasant. Spoke with pt and stated MD is aware.
[2023-05-22] MEDS: fentaNYL CITRATE INJ (*CRX) 100 MCG/2 ML VIAL 50 MCG IV PUSH (09:28)
[2023-05-22] MEDS: KETOROLAC 15 MG/ML VIAL (*BKC) IV PUSH (09:33)
--- NOTE | 2023-05-22 10:40 | PC.NURSE ---
1032- Called [facility] transfer for update-still waiting on bed at [facility], will know more after possible discharges this afternoon.
--- NOTE | 2023-05-22 13:39 | PC.NURSE ---
patient has bed available at [address]. call report to [phone]
--- NOTE | 2023-05-22 14:34 | PC.NURSE ---
ismael at [facility] aware patient leaving at this time
== END 2023-05-22 14:34 | disposition short-term general hospital (02) ==
PROVIDERS: Emergency Provider Emergency Medicine; PCP Emergency Medicine
DX: I30.9 Acute pericarditis, unspecified (principal); Z20.822 Contact with and (suspected) exposure to COVID-19; I12.9 Hypertensive chronic kidney disease with stage 1 through stage 4 chronic kidney disease, or unspecified chronic kidney disease; N18.30 Chronic kidney disease, stage 3 unspecified; E78.2 Mixed hyperlipidemia; Z85.528 Personal history of other malignant neoplasm of kidney; Z90.5 Acquired absence of kidney; R94.31 Abnormal electrocardiogram [ECG] [EKG]; R00.0 Tachycardia, unspecified
CPT/HCPCS: 36415; 71046; 71275; 80053; 83690; 84484; 85025; 85610; 85730; 87637; 93005; 94640; 96361; 96374; 96375; 96376; 99285; J1170; J1885; J3010; J7030; Q9967

== ENCOUNTER 2023-07-22 22:39 | Observation (INO) | payer OTHER, SELFPAY ==
[2023-07-22] VITALS (8 sets, daily range): BP systolic 112–120; BP diastolic 72–85; PULSE 106–116; RESP 19–33; TEMP 36.1; O2SAT 98–100
--- NOTE | ~2023-07-22 | CT_ITS ---
EXAMINATION: CTA chest PE abdomen pel DATE: 07/23/2023 00:12 INDICATION: Chest pain. Abdominal pain. TECHNIQUE: Computed tomography angiography (CTA) of the chest was performed with 100 mL Omnipaque-350 intravenous contrast timed to evaluate the pulmonary arteries. Coronal maximum intensity projection 3D-reconstructions were created by the technologist. Computed tomography (CT) of the abdomen and pelv is was performed with intravenous contrast. Automated exposure control and iterative reconstruction t echnique were employed. The dose-length product was 423.09 mGy-cm. COMPARISON: Chest CT 05/22/23, CT 08/29/2022 FINDINGS: CTA chest: There is smooth septal thickening in the lungs, consistent mild pulmonary edema. There is mild atelectasis bilaterally. There are small pleural effusions. The heart size is normal. There is a moderate-sized pericardial effusion. There is pericardial thickening and enhancement. There is no pu lmonary embolus. CT abdomen and pelvis: There is periportal edema in the liver. The gallbladder, spleen, pancreas, and adrenal glands are normal. There is focal mild atrophy in right kidney. Left kidney is absent. There are no dilated loops of bowel. The appendix is normal. There is calcified atherosclerosis of the aor ta and many of the other arteries. There are no pathologically enlarged lymph nodes. There is no free intraperitoneal fluid. There is a mixed lytic and sclerotic lesion in L2 vertebral body. There is an expansile lytic and sclerotic lesion involving left second rib. IMPRESSION: 1. No pulmonary embolus. 2. Worsened moderate-sized pericardial effusion. Pericardial thickening and enhancement suggests an e xudate. 3. Mild pulmonary edema. 4. Small pleural effusions. 5. Chronic lesions in left second rib and L2 vertebral body, consistent metastatic disease. Reviewed, dictated and finalized at location [facility]. IMPRESSION: 1. No pulmonary embolus. 2. Worsened moderate-sized pericardial effusion. Pericardial thickening and enh ancement suggests an exudate. 3. Mild pulmonary edema. 4. Small pleural effusions. 5. Chronic lesions in left second rib and L2 vertebral body, consistent metasta tic disease.
--- NOTE | 2023-07-22 22:58 | ECG_ITS ---
SEE SCANNED COPY FOR CONFIRMED REPORT MTDD
[2023-07-22] MEDS: ONDANSETRON INJ 4 MG/2 ML VIAL IV PUSH (23:30)
[2023-07-22] MEDS: SODIUM CHLORIDE 0.9% IV 1,000 ML 999 ML IV CONT (23:30)
[2023-07-22 23:33] LABS: Basophils Percent Auto 0.3 % (0.2-1.2); Eosinophils Absolute Auto 0.3 K/mm3 (0-0.3); Eosinophils Percent Auto 3.3 % (0-4.4); Hematocrit 43.9 % (42.0-52.0); Hemoglobin 15.1 g/dL (14.0-18.0); Immature Granulocyte Absolute 0.02 K/mm3 (0.00-0.031); Immature Granulocyte Percent A 0.2 % (0-0.5); Lymphocytes Absolute Auto 1.98 K/mm3 (0.9-3.2); Lymphocytes Percent Auto 22.8 % (18.3-44.2); Mean Corpuscular HGB Conc 34.4 g/dl (32-36); Mean Corpuscular Hemoglobin 31.9 pg (26-34); Mean Corpuscular Volume 92.6 fl (80-100); Mean Platelet Volume 9.1 fl (7.4-10.4); Neutrophils Absolute Auto 5.3 K/mm3 (1.3-6.7); Neutrophils Percent Auto 61.4 % (45.5-73.1); Platelet Count Result 240 k/mm3 (150-375); Red Blood Count 4.74 M/mm3 (4.6-6.20); Red Cell Distribution Width 13.2 % (11.5-14.5); White Blood Count 8.7 K/mm3 (4.5-10.0)
[2023-07-22 23:44] LABS: INR 1.1; Prothrombin Time 14.9 Seconds (11.1-14.7)
[2023-07-22 23:45] LABS: Partial Thromboplastin Time 42.4 Seconds (22.3-36.8)
[2023-07-22 23:48] LABS: Ethanol < 10 mg/dL (<10)
[2023-07-22 23:48] LABS: Lactic Acid Reflex 1.1 mmol/L (0.7-2.0)
[2023-07-22 23:50] LABS: Alanine Aminotransferase 17 U/L (6-50); Albumin Level 4.1 g/dL (3.5-5.1); Alkaline Phosphatase 91 U/L (38-126); Anion Gap 9 mmol/L (4-12); Aspartate Amino Transferase 35 U/L (17-59); Bilirubin,Total 0.9 mg/dL (0.2-1.3); Blood Urea Nitrogen 17 mg/dL (9-20); Calcium 9.6 mg/dL (8.4-10.2); Carbon Dioxide 24 mmol/L (22-30); Chloride 97 mmol/L (98-107); Estimated CRCL calculation 81 ml/min; Estimated Glomerular Filt Rate > 60; Glucose 102 mg/dL (65-110); Magnesium 1.5 mg/dL (1.6-2.3); Potassium 3.8 mmol/L (3.4-5.0); Sodium 130 mmol/L (137-145)
[2023-07-23] VITALS (30 sets, daily range): BP systolic 99–127; BP diastolic 73–97; PULSE 86–129; RESP 14–36; TEMP 36.4–37.4; O2SAT 95–100; BMI 22.1
--- NOTE | 2023-07-23 | ECHO_ITS ---
Patient Info Name: Juan Valencia Age: 53 years : 1970 Gender: Male Ht: 65 in Wt: 133 lbs BSA: 1.67 m2 HR: 124 bpm BP: 104 / 78 mmHg Heart Rhythm: Tachycardia Technical Quality: Good Exam Date: 07/23/2023 11:19 AM Exam Location: Echo Lab Patient Status: Inpatient Admit Date: 07/23/2023 Staff Ordering Physician: Chioma Marks APRN Renderer: Mary Farias RDCS Attending Provider: Jose Doyle MD Referring Physician: Selina NEWTON; Exam Type: CA echo doppler color flow Study Info Indications - pericardial effusion R06.02 - Shortness of breath Strain analysis performed. Complete two-dimensional, color flow and Doppler transthoracic echocardiogram is performed. Summary 1. Complete two-dimensional, color flow and Doppler transthoracic echocardiogram is performed. 2. Left ventricular chamber dimension is normal. 3. Left ventricular systolic function is hyperdynamic, estimated at >70%. 4. There is mildly increased left ventricular wall thickness. 5. The left ventricular diastolic function is normal. 6. Global longitudinal strain is moderately elevated at -10 %. 7. There is trace tricuspid valve regurgitation. 8. No pulmonary hypertension, estimated pulmonary arterial systolic pressure is 31 mmHg. 9. There is moderate circumferential pericardial effusion ranging from 0.7cm to 1.4cm (overall average 1.1-1.2cm). 10. The pericardium appears thickened and echogenic.. Left Ventricle Left ventricular chamber dimension is normal. Left ventricular systolic function is hyperdynamic, estimated at >70%. There is mildly increased left ventricular wall thickness. The left ventricular diastolic function is normal. Global longitudinal strain is moderately elevated at -10 %. Right Ventricle Right ventricular chamber dimension is normal. Right ventricular systolic function is normal. Left Atria Left atrial chamber dimension is normal. Right Atria Right atrial chamber dimension is normal. Aortic Valve The aortic valve is trileaflet. There is no aortic valve stenosis. There is no aortic valve regurgitation. Pulmonic Valve The pulmonic valve is not well visualized. There is trace pulmonic regurgitation. Mitral Valve The mitral valve has thickened leaflets. There is trace mitral valve regurgitation. Tricuspid Valve The tricuspid valve leaflets are normal. There is trace tricuspid valve regurgitation. No pulmonary hypertension, estimated pulmonary arterial systolic pressure is 31 mmHg. Pericardium/Pleural The pericardium appears thickened and echogenic.. There is moderate circumferential pericardial effusion ranging from 0.7cm to 1.4cm (overall average 1.1-1.2cm). Inferior Vena Cava Normal inferior vena cava with <50% collapse upon inspiration consistent with elevated right atrial pressure, 10 mmHg. Aorta The aortic root size at the sinus of Valsalva is normal. The prox ascending aorta size is normal. Left Ventricular Outflow Tract Name Value Normal LVOT 2D LVOT Diameter 2.0 cm LVOT Doppler LVOT Peak Gradient 9 mmHg LVOT Mean Gradient 5 mmHg LVOT VTI 19 cm LVOT VTI/AV VT
[2023-07-23 00:01] LABS: NT Pro B Type Natriuretic Pept 497 pg/mL (19.9-100); Troponin I < 0.012 ng/mL (0.000-0.034)
[2023-07-23 00:10] LABS: Influenza A QL RT-PCR Negative (Negative); Influenza B QL RT-PCR Negative (Negative); RSV RNA, RT-PCR Negative (Negative); SARS-CoV-2 RNA PCR Negative (Negative)
[2023-07-23 00:45] LABS: Procalcitonin 0.5 ng/mL
--- NOTE | 2023-07-23 00:48 | PC.NURSE ---
Patient states he is still nauseous, ERP notified.
--- NOTE | 2023-07-23 01:06 | ED.GENADULT ---
HPI - General Adult General Chief complaint: Nausea/Vomiting/Diarrhea Stated complaint: weakness, N/V/D, abd pain Time Seen by Provider: 07/22/23 23:01 History of Present Illness HPI narrative: This patient is a 53-year-old gentleman who presents emergency department with chief complaint of nausea vomiting diarrhea epigastric/chest discomfort. The patient reports that a month ago was admitted [facility]iu for pericarditis the patient states that he has been having some discomfort in his chest feels similar to whenever he had pericarditis in the past. Related Data Home Medications Medication Instructions Recorded Confirmed colchicine 0.6 mg tablet mg 07/22/23 oxycodone 5 mg tablet mg 07/22/23 prednisone 10 mg tablet mg 07/22/23 tadalafil 20 mg tablet mg 07/22/23 Allergies Allergy/AdvReac Type Severity Reaction Status Date / Time No Known Allergies Allergy Verified 07/22/23 23:03 Review of Systems Review of Systems: A 10 system review of systems was completed on the patient and is negative except for what is stated in the HPI. Nursing and ancillary documentation was reviewed. PMFSH Past Medical History Medical History Bladder tumor CKD (chronic kidney disease), stage III Essential hypertension HLD (hyperlipidemia) Hypertension Mixed hyperlipidemia Renal cell cancer Surgical History Surgical History H/O brain surgery History of nephrectomy Social History Social History Smoking status: Current every day smoker Alcohol intake: never Lack of Transportation: No Lack of Food: Sometimes True Current Housing: I Have Housing Concerned About Future Housing: No Difficulty Paying Gas/Electric Bills: YES Difficulty Paying for Meds: No Difficulty w/ Childcare or Family Care: No Gender identity (if verbalized by the patient): Male Exam Narrative: GENERAL: Well-appearing, well-nourished, and in no acute distress. HEAD: Normocephalic, atraumatic. EYES: PERRLA and EOMI. ENT: Nares clear, no rhinorrhea or epistaxis. Mucous membranes moist. NECK: Supple. CHEST: Clear to auscultation. No respiratory distress. HEART: Regular rate and rhythm. No murmur heard. Normal peripheral pulses. ABDOMEN: Soft, nontender, nondistended, normal active bowel sounds. EXTREMITIES: Normal range of motion. No edema. SKIN: Warm, dry, no rash. NEURO: No focal deficits. Alert and oriented x3. PSYCH: Normal mood and affect. Course Vital Signs Vital signs: Vital Signs Temperature 36.1 C L 07/22/23 22:56 Pulse Rate 114 H 07/22/23 22:56 Respiratory Rate 19 07/22/23 22:56 Blood Pressure 112/81 07/22/23 22:56 Pulse Oximetry 98 07/22/23 22:56 Temperature 36.1 C L 07/22/23 22:56 Pulse Rate 111 H 07/23/23 00:45 Respiratory Rate 26 H 07/23/23 00:45 Blood Pressure 120/80 07/23/23 00:16 Pulse Oximetry 100 07/23/23 00:32 Oxygen Delivery Room Air 07/22/23 22:59 Medical Decision Making [facility] Narrative Medical decision making narrative: Differential diagnosis includes pericarditis, viral illness, ACS EKG showed diffuse ST elevations consistent with pericarditis Initial troponin was negative CBC was within normal limits electrolytes showed no acute abnormalities magnesium was 1.5 CTA chest showed moderate size pericardial effusion. Given the history of pericarditis the EKG consistent with pericarditis and the patient having a moderate size pericardial effusion the case was discussed with the hospitalist a consult has been placed for the morning for Cardiology the patient was given a dose of Lasix and colchicine and the patient will be admitted for further care and Vital Signs Vital Signs: Vital Signs Temperature 36.1 C L 07/22/23 22:56 Pulse Rate 114 H 07/22/23 22:56 Respirat
[2023-07-23 01:20] LABS: Appearance Urine Clear (Clear); Bacteria Urine None Seen /hpf; Bilirubin Urine Negative (Negative); Blood Urine Negative (Negative); Color Urine Yellow (Yellow); Glucose Urine UA Negative (Negative); Ketones Urine 3+ mg/dL (Negative); Leukocyte Esterase Ur Negative LEU/UL (Negative); Need Manual Microscopic Reviewed; Nitrate Urine Negative (Negative); Protein Urine 2+ mg/dL (Negative); RBC Urine 0-2 /hpf (0-2); Squamous Epithelial Cell Urine None Seen /hpf (Few); WBC Urine 0-5 /hpf (0-3); pH Urine 5.5 (5.0-9.0)
[2023-07-23 01:21] LABS: Add Urine Microscopic? YES; Specific Grav Ur 1.036 (1.001-1.035)
[2023-07-23] MEDS: COLCHICINE 0.6 MG TABLET PO ×3 (01:32→17:18)
[2023-07-23] MEDS: FUROSEMIDE INJ 40 MG/4 ML VIAL IV PUSH ×2 (01:32→09:13)
[2023-07-23] MEDS: ONDANSETRON INJ 4 MG/2 ML VIAL IV PUSH ×2 (01:32→21:24)
[2023-07-23] MEDS: MAGNESIUM SULF 2 GM/WATER 50ML 2 GM/50 ML BAG IVPB (01:32)
[2023-07-23 01:38] LABS: Amphetamine Screen Urine Negative (Negative); Barbiturate Screen Urine Negative (Negative); Benzodiazepines Screen Urine Negative (Negative); Cannabinoid Screen Urine Positive (Negative); Cocaine Screen Urine Negative (Negative); Methadone Screen Urine Negative (Negative); Opiate Screen Urine Negative (Negative); Phencyclidine Screen Urine Negative (Negative)
--- NOTE | 2023-07-23 02:19 | ADMGEN ---
This patient, Juan Valencia, was admitted to IMU Room 211-01 on 07/23/23 at 0200. Patient/family oriented to hospital policies and general routines including ID bracelet, bed and alarms, visiting hours, pain management, procedures, bathroom and other care routines, personal items, smoking policy, room service/diet, and visiting hours. Information on how to activate the Rapid Response Team has been discussed. Patient/Family are encouraged to report perceived risks to care and to ask questions if they do not understand what they are told or what they should do.
[2023-07-23 03:21] LABS: Troponin I < 0.012 ng/mL (0.000-0.034)
[2023-07-23] MEDS: MORPHINE SULFATE (*CRX) 2 MG/ML INJ 1 MG IV PUSH (07:05)
[2023-07-23] MEDS: predniSONE 10 MG TABLET PO (09:14)
--- NOTE | 2023-07-23 09:23 | ECG_ITS ---
SEE SCANNED COPY FOR CONFIRMED REPORT MTDD
[2023-07-23] MEDS: KETOROLAC 30 MG/ML VIAL (*BKC) IV PUSH (09:32)
[2023-07-23 10:03] LABS: Basophils Percent Auto 0.5 % (0.2-1.2); Eosinophils Absolute Auto 0.2 K/mm3 (0-0.3); Eosinophils Percent Auto 2.1 % (0-4.4); Hemoglobin 14.1 g/dL (14.0-18.0); Immature Granulocyte Absolute 0.02 K/mm3 (0.00-0.031); Immature Granulocyte Percent A 0.2 % (0-0.5); Lymphocytes Absolute Auto 1.63 K/mm3 (0.9-3.2); Lymphocytes Percent Auto 19.7 % (18.3-44.2); Mean Corpuscular HGB Conc 34.4 g/dl (32-36); Mean Corpuscular Volume 93.2 fl (80-100); Mean Platelet Volume 9.1 fl (7.4-10.4); Monocytes Absolute Auto 0.8 K/mm3 (0.1-0.6); Neutrophils Absolute Auto 5.6 K/mm3 (1.3-6.7); Neutrophils Percent Auto 67.5 % (45.5-73.1); Platelet Count Result 236 k/mm3 (150-375); Red Cell Distribution Width 13.3 % (11.5-14.5); White Blood Count 8.3 K/mm3 (4.5-10.0)
[2023-07-23 10:14] LABS: Alanine Aminotransferase 15 U/L (6-50); Albumin Level 3.9 g/dL (3.5-5.1); Alkaline Phosphatase 87 U/L (38-126); Anion Gap 10 mmol/L (4-12); Aspartate Amino Transferase 26 U/L (17-59); Bilirubin,Total 0.9 mg/dL (0.2-1.3); Blood Urea Nitrogen 18 mg/dL (9-20); Calcium 9.1 mg/dL (8.4-10.2); Carbon Dioxide 23 mmol/L (22-30); Chloride 98 mmol/L (98-107); Estimated CRCL calculation 54 ml/min; Estimated Glomerular Filt Rate > 60; Glucose 147 mg/dL (65-110); Potassium 3.5 mmol/L (3.4-5.0); Sodium 131 mmol/L (137-145)
[2023-07-23 10:21] LABS: NT Pro B Type Natriuretic Pept 483 pg/mL (19.9-100)
[2023-07-23 10:29] LABS: Troponin I < 0.012 ng/mL (0.000-0.034)
[2023-07-23 10:33] LABS: Magnesium 1.8 mg/dL (1.6-2.3)
--- NOTE | 2023-07-23 10:56 | PM.CNCAR ---
Assessment and Plan Assessment and plan (1) Pericarditis: Code(s): I31.9 - Disease of pericardium, unspecified Status: Acute Assessment and Plan: Patient presents with left chest pain he states is similar to his recent clinical diagnosis of pericarditis which resolved with colchicine 0.6 mg twice daily and ibuprofen 600 mg daily. Symptoms occurred with past week became more severe as he was off colchicine and ibuprofen due to illness. Twelve lead ECG subtle J-point elevation it given his clinical history would recommend continuation of treatment of pericarditis with colchicine 0.6 mg twice daily and ibuprofen 600 mg at least b.i.d. but will schedule for every 8 hours initially to control symptoms and then reduce frequency. Monitor for side effects and renal function with regards to anti-inflammatory therapy. Very lengthy discussion held with the patient with regards to etiology, treatment strategy, prognosis. All questions answered to his satisfaction. I would avoid steroids if possible as this can increase the likelihood for chronic relapsing pericarditis. -repeat 12 lead ECG in a.m.. I spent 74 minutes in care of this patient at bedside including discussion, examination, chart review, review of outside records, medical decision-making, and documentation. (2) Pericardial effusion: Code(s): I31.39 - Other pericardial effusion (noninflammatory) Status: Acute Assessment and Plan: Small to moderate pericardial effusion without clear evidence for tamponade physiology echocardiogram. Evidence of pericardial thickening consistent with pericardial inflammatory process. LV systolic function hyperdynamic EF estimated at 75-80%. Discontinue IV Lasix as patient is clinically intravascular volume depleted. Etiology of pericardial effusion unclear although most concerning for malignant pericardial effusion given clinical history. Patient mentions recall of his chemotherapy contributing to pericardial effusion or pericarditis although could not recall the name. Will need to clarify and assessed involved in this regard. Continue to monitor patient clinically particularly with regards to hemodynamics. He is not currently hemodynamically unstable. Continue telemetry. Avoid significant intravascular volume depletion. I would favor temporary IV fluid with normal saline particularly if he is not able to maintain adequate oral intake. -repeat echocardiogram at bedside revealed small to moderate pericardial effusion without clear tamponade physiology will need to monitor patient's response to therapy very closely. If patient stable overnight may be downgraded a 2nd medical telemetry. Monitor respiratory status closely. Patient is doing well on room air. He remains tachycardic due to pain and I suspect intravascular volume depletion. Avoid AV claribel blocking agents at this time. (3) Renal cell cancer: Code(s): C64.9 - Malignant neoplasm of unspecified kidney, except renal pelvis Status: Acute Assessment and Plan: Patient also reports a history of bladder cancer and renal cell carcinoma for which he has been treated with immunotherapy, chemotherapy in history radiation due to metastatic disease. Patient has stopped his therapy since recent discharge as it was felt his pericarditis may have been related to his immunotherapy. 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 (4) Bladder tumor: Code(s): D49.4 - Neoplasm of unspecified behavior of bladder Status: Acute Assessment and Plan: As above, patient is followed by oncology in this regard. Further management per the recommendations and per primary care. History of Present Illness History of Present Illness Consult date/time: Date of service: 07/23/23 10:56 Requesting physician: Chioma Marks APRN Consult reason: chest pain and Other (History of pericarditis) Reason For Vis
[2023-07-23 11:18] LABS: CRP 29.3 mg/dL (<1.0)
--- NOTE | 2023-07-23 13:03 | PM.IMHP ---
H&P: HPI History of Present Illness Date/Time: 07/23/23 13:03 Chief Complaint: Shortness of breath, chest pain Narrative: This is a 53-year-old male with a past medical history significant for renal cell carcinoma status post left radical nephrectomy with metastasis to to the brain with partial craniotomy in August 2022, transurethral resection of a bladder tumor status post BCG treatment (2021), and immunotherapy. CT chest abdomen pelvis from July of 2022 demonstrated metastatic disease to lungs and osseous structures. He provides most of the history but due to his memory difficulties after his craniotomy some of the history is supplemented from the chart. He recently was admitted at [facility] with pericarditis. He was treated with colchicine and prednisone. He presented to [facility] on 07/21 with increasing left-sided chest pain and shortness of breath over the last week. He also reports having nausea, vomiting, diarrhea with subjective fever and chills. He reports night sweats. The pain he states is similar to when he was the hospital for pericarditis. The pain is worse with deep inspiration. He denies any recent sick contact. I was contacted by the nurse this morning with complaints of 10/10 chest pain. The patient states the pain is left-sided, sharp, and worse with deep inspiration. He received IV Toradol with significant improvement of his pain. In the ER labs were pretty unremarkable. His magnesium was low at 1.5, sodium 130, and BNP elevated at 497. UA was negative with urine drug screen positive for cannabinoids. Viral PCR was negative. EKG showed sinus tachycardia as well as diffuse ST elevation as seen with pericarditis, troponin negative. CT chest abdomen and pelvis shows no pulmonary embolism, with a worsened moderate size pericardial effusion and pericardial thickening with enhancement bed is suggestive of an exudate. Cardiology was consulted and the patient was admitted to IMU. Review of Systems Review of Systems: All systems reviewed & are unremarkable except as noted in HPI and below PMFSH Past Medical History Medical History (Updated 07/23/23 @ 14:09 by Chioma Marks APRN) Bladder tumor Brain tumor CKD (chronic kidney disease), stage III Essential hypertension HLD (hyperlipidemia) Hypertension Mixed hyperlipidemia Renal cell cancer Surgical History Surgical History (Updated 07/23/23 @ 13:21 by Chioma Marks APRN) H/O brain surgery H/O transurethral resection of bladder tumor (TURBT) History of nephrectomy Hx of tonsillectomy Family History Family History Sibling MVC (motor vehicle collision) Father Choked on food Other Unknown family medical history Social History Social History (Updated 07/23/23 @ 13:24 by Chioma Marks APRN) Social History: spent 3 years in [facility] Smoking packs per day: 1 Smoking cigarettes per day: 20.0 Years smoked: 20 Smoking pack-years: 20.00 Smoking status: Current every day smoker Tobacco type: cigarettes Second hand tobacco smoke exposure: Yes Alcohol intake: former Substance use: current Substance use type: marijuana Other substance usage details: Smoker and uses edibles Do You Feel Safe in your Home?: Yes Lack of Transportation: No Lack of Food: Never True Current Housing: I Have Housing Concerned About Future Housing: No Difficulty Paying Gas/Electric Bills: No Difficulty Paying for Meds: No Currently Unemployed: No Education: Grade School Difficulty w/ Childcare or Family Care: No Living arrangements: with family Additional living arrangements comments: lives with Elena Occupation/Education: other Additional occupation/education comments: 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
[2023-07-23] MEDS: SODIUM CHLORIDE 0.9% IV 1,000 ML 100 ML IV CONT ×2 (14:26→23:57)
[2023-07-23] MEDS: IBUPROFEN 600 MG TABLET PO (17:18)
[2023-07-24] VITALS (9 sets, daily range): BP systolic 123–131; BP diastolic 82–92; PULSE 84–99; RESP 16–20; TEMP 36.3–36.6; O2SAT 100
[2023-07-24 04:59] LABS: Basophils Percent Auto 0.3 % (0.2-1.2); Eosinophils Absolute Auto 0.2 K/mm3 (0-0.3); Eosinophils Percent Auto 2.1 % (0-4.4); Hematocrit 36.6 % (42.0-52.0); Hemoglobin 12.2 g/dL (14.0-18.0); Immature Granulocyte Absolute 0.01 K/mm3 (0.00-0.031); Immature Granulocyte Percent A 0.1 % (0-0.5); Lymphocytes Absolute Auto 1.73 K/mm3 (0.9-3.2); Lymphocytes Percent Auto 22.3 % (18.3-44.2); Mean Corpuscular HGB Conc 33.3 g/dl (32-36); Mean Corpuscular Hemoglobin 31.5 pg (26-34); Mean Corpuscular Volume 94.6 fl (80-100); Mean Platelet Volume 9.8 fl (7.4-10.4); Monocytes Absolute Auto 0.8 K/mm3 (0.1-0.6); Monocytes Percent Auto 9.7 % (2.6-8.5); Neutrophils Absolute Auto 5.1 K/mm3 (1.3-6.7); Neutrophils Percent Auto 65.5 % (45.5-73.1); Platelet Count Result 237 k/mm3 (150-375); Red Blood Count 3.87 M/mm3 (4.6-6.20); Red Cell Distribution Width 13.3 % (11.5-14.5); White Blood Count 7.8 K/mm3 (4.5-10.0)
[2023-07-24 05:13] LABS: Alanine Aminotransferase 14 U/L (6-50); Albumin Level 3.9 g/dL (3.5-5.1); Alkaline Phosphatase 91 U/L (38-126); Anion Gap 9 mmol/L (4-12); Aspartate Amino Transferase 23 U/L (17-59); Bilirubin,Total 0.7 mg/dL (0.2-1.3); Blood Urea Nitrogen 17 mg/dL (9-20); Calcium 9.3 mg/dL (8.4-10.2); Carbon Dioxide 25 mmol/L (22-30); Chloride 102 mmol/L (98-107); Cholesterol 175 mg/dL (0-200); Estimated CRCL calculation 72 ml/min; Estimated Glomerular Filt Rate > 60; Glucose 108 mg/dL (65-110); HDL Direct 22 mg/dL; Potassium 4.1 mmol/L (3.4-5.0); Sodium 136 mmol/L (137-145); Triglycerides 137 mg/dL (<150)
[2023-07-24 05:20] LABS: LDL Cholesterol Direct 121 mg/dL
[2023-07-24 05:28] LABS: CRP 26.4 mg/dL (<1.0)
[2023-07-24] MEDS: IBUPROFEN 600 MG TABLET PO ×2 (05:39→09:35)
--- NOTE | 2023-07-24 06:00 | ECG_ITS ---
SEE SCANNED COPY FOR CONFIRMED REPORT MTDD
--- NOTE | 2023-07-24 09:34 | P.PNIM_ITS ---
Progress Note: A&P Assessment and Plan (1) Pericardial effusion: Code(s): I31.39 - Other pericardial effusion (noninflammatory) Status: Acute Assessment and Plan: Small to moderate pericardial effusion without tamponade * Echo ordered * Admitted IMU with telemetry monitoring * Cardiology has been consulted, recs appreciated * Initially was receiving IV Lasix. This is been discontinued by cards as patient is tachycardic and likely volume depleted. * SBP soft 90/60, tachy 115-120's * Will give him 1 L of fluids over 10 hours. Can continue with maintenance fluids if he is having recurrent N/V/D. * No tamponade. No drainage needed at this time. 07/23: * Blood pressures normotensive * Tachycardia resolved * Plan to downgrade to [facility] versus discharge * Stopping steroid. (2) Pericarditis: Code(s): I31.9 - Disease of pericardium, unspecified Status: Acute Assessment and Plan: Evidence of pericardial thickening consistent with pericardial inflammatory process * LV systolic function make with EF estimated at 75 an 80% * Lasix DC. Signs of volume depletion with low blood pressure and tachycardia * Started on NS at 100 mL an hour * Colchicine 0.6 mg twice daily and ibuprofen 600 mg BID * Stop Toradol * EKG showing diffuse ST elevation. Troponin negative. * Repeat EKG in the morning per Cardiology. * CRP elevated at 29.3 07/23: * Continue with scheduled ibuprofen and colchicine BID * CRP downtrending 26.4 (3) Nausea vomiting and diarrhea: Code(s): R11.2 - Nausea with vomiting, unspecified; R19.7 - Diarrhea, unspecified Status: Acute Assessment and Plan: Patient has had GI illness over the last week. No known ill contacts * Currently now he is admitted is nausea, vomiting, diarrhea has resolved * Monitor electrolytes * heart healthy diet * Zofran as needed for nausea 07/23: * resolved (4) CKD (chronic kidney disease), stage III: Code(s): N18.3 - Chronic kidney disease, stage 3 (moderate) Status: Acute Assessment and Plan: Baseline Cr 0.09-1.2 * daily monitoring of Cr * I&O 07/23: * Cr 0.90 * I: 3531 ml O: 1000 ml net + 2531 ml (5) HLD (hyperlipidemia): Code(s): E78.5 - Hyperlipidemia, unspecified Status: Acute Assessment and Plan: Does not appear to be on statins * check a lipid panel 07/23: * LDL 121, HDL 22 * given his significant cancer and htn history he would benefit from low dose statin * will discuss with him if he is willing to start something Plan If he remains stable he can downgrade to a medical floor with tele tomorrow Subjective Date/time seen: 07/24/23 09:34 Interval history: 07/23: No acute events overnight. Patient is doing well this morning. He still reports a dull pain to his left chest but is improved greatly since yesterday. His tachycardia and hypertension resolved after 1 L of fluids. He could probably discharge today pending cardiology recs. I did talk to him about stopping his prednisone but he will need to follow-up with his oncologist. He has been on 10 mg daily for the last few weeks. Okay to discontinue now given risk of worsening pericarditis. Review of Systems Review of Systems: All systems reviewed & are unremarkable except as noted in HPI and below Exam Narrative: General: thin, appears in no acute distress HEENT: normocephalic, atraumatic. Mucous membranes moist. EOMI, PERRLA, bilateral sclera ani
--- NOTE | 2023-07-24 09:34 | PM.IMPN ---
Progress Note: A&P Assessment and Plan (1) Pericardial effusion: Code(s): I31.39 - Other pericardial effusion (noninflammatory) Status: Acute Assessment and Plan: Small to moderate pericardial effusion without tamponade Echo ordered Admitted IMU with telemetry monitoring Cardiology has been consulted, recs appreciated Initially was receiving IV Lasix. This is been discontinued by cards as patient is tachycardic and likely volume depleted. SBP soft 90/60, tachy 115-120's Will give him 1 L of fluids over 10 hours. Can continue with maintenance fluids if he is having recurrent N/V/D. No tamponade. No drainage needed at this time. 07/23: Blood pressures normotensive Tachycardia resolved Plan to downgrade to med-tele versus discharge Stopping steroid. (2) Pericarditis: Code(s): I31.9 - Disease of pericardium, unspecified Status: Acute Assessment and Plan: Evidence of pericardial thickening consistent with pericardial inflammatory process LV systolic function make with EF estimated at 75 an 80% Lasix DC. Signs of volume depletion with low blood pressure and tachycardia Started on NS at 100 mL an hour Colchicine 0.6 mg twice daily and ibuprofen 600 mg BID Stop Toradol EKG showing diffuse ST elevation. Troponin negative. Repeat EKG in the morning per Cardiology. CRP elevated at 29.3 07/23: Continue with scheduled ibuprofen and colchicine BID CRP downtrending 26.4 (3) Nausea vomiting and diarrhea: Code(s): R11.2 - Nausea with vomiting, unspecified; R19.7 - Diarrhea, unspecified Status: Acute Assessment and Plan: Patient has had GI illness over the last week. No known ill contacts Currently now he is admitted is nausea, vomiting, diarrhea has resolved Monitor electrolytes heart healthy diet Zofran as needed for nausea 07/23: resolved (4) CKD (chronic kidney disease), stage III: Code(s): N18.3 - Chronic kidney disease, stage 3 (moderate) Status: Acute Assessment and Plan: Baseline Cr 0.09-1.2 daily monitoring of Cr I&O 07/23: Cr 0.90 I: 3531 ml O: 1000 ml net + 2531 ml (5) HLD (hyperlipidemia): Code(s): E78.5 - Hyperlipidemia, unspecified Status: Acute Assessment and Plan: Does not appear to be on statins check a lipid panel 07/23: LDL 121, HDL 22 given his significant cancer and htn history he would benefit from low dose statin will discuss with him if he is willing to start something Plan If he remains stable he can downgrade to a medical floor with tele tomorrow Subjective Date/time seen: 07/24/23 09:34 Interval history: 07/23: No acute events overnight. Patient is doing well this morning. He still reports a dull pain to his left chest but is improved greatly since yesterday. His tachycardia and hypertension resolved after 1 L of fluids. He could probably discharge today pending cardiology recs. I did talk to him about stopping his prednisone but he will need to follow-up with his oncologist. He has been on 10 mg daily for the last few weeks. Okay to discontinue now given risk of worsening pericarditis. Review of Systems Review of Systems: All systems reviewed & are unremarkable except as noted in HPI and below Exam Narrative: General: thin, appears in no acute distress HEENT: normocephalic, atraumatic. Mucous membranes moist. EOMI, PERRLA, bilateral sclera anicteric, no conjunctival injection. Neck supple without JVD, lymphadenopathy, or bruit. Respiratory: clear to auscultation bilaterally. No rales/rhonic/wheezes. Cardiovascular: Regular rate and rhythm, normal S1-S2 upon auscultation. No murmurs. + friction rub. PMI is nondisplaced, capillary refill less than 3 second. Abdomen: Soft, flat, no pulsatile masses, nondistended and nontender. No rebound, no guarding. No CVA tenderness, no hepatosplenomegaly. Bowel sounds present to all four quadr
[2023-07-24] MEDS: ENOXAPARIN 40 MG/0.4 ML SYRINGE SUB-Q (09:35)
[2023-07-24] MEDS: COLCHICINE 0.6 MG TABLET PO (09:35)
--- NOTE | 2023-07-24 13:19 | P.DS_ITS ---
DS: Admitting Diagnosis Discharge Date 07/23 Admitting Diagnosis Chest pain DS: Discharge Diagnosis Discharge Diagnosis (1) Pericardial effusion: Code(s): I31.39 - Other pericardial effusion (noninflammatory) Status: Acute Assessment and Plan: Small to moderate pericardial effusion without tamponade * Echo ordered * Admitted IMU with telemetry monitoring * Cardiology has been consulted, recs appreciated * Initially was receiving IV Lasix. This is been discontinued by cards as patient is tachycardic and likely volume depleted. * SBP soft 90/60, tachy 115-120's * Will give him 1 L of fluids over 10 hours. Can continue with maintenance fluids if he is having recurrent N/V/D. * No tamponade. No drainage needed at this time. 07/23: * Blood pressures normotensive * Tachycardia resolved * Plan to downgrade to med-tele versus discharge * Stopping steroid. (2) Pericarditis: Code(s): I31.9 - Disease of pericardium, unspecified Status: Acute Assessment and Plan: Evidence of pericardial thickening consistent with pericardial inflammatory process * LV systolic function make with EF estimated at 75 an 80% * Lasix DC. Signs of volume depletion with low blood pressure and tachycardia * Started on NS at 100 mL an hour * Colchicine 0.6 mg twice daily and ibuprofen 600 mg BID * Stop Toradol * EKG showing diffuse ST elevation. Troponin negative. * Repeat EKG in the morning per Cardiology. * CRP elevated at 29.3 07/23: * Continue with scheduled ibuprofen and colchicine BID * CRP downtrending 26.4 (3) Nausea vomiting and diarrhea: Code(s): R11.2 - Nausea with vomiting, unspecified; R19.7 - Diarrhea, unspecified Status: Acute Assessment and Plan: Patient has had GI illness over the last week. No known ill contacts * Currently now he is admitted is nausea, vomiting, diarrhea has resolved * Monitor electrolytes * heart healthy diet * Zofran as needed for nausea 07/23: * resolved (4) CKD (chronic kidney disease), stage III: Code(s): N18.3 - Chronic kidney disease, stage 3 (moderate) Status: Acute Assessment and Plan: Baseline Cr 0.09-1.2 * daily monitoring of Cr * I&O 07/23: * Cr 0.90 * I: 3531 ml O: 1000 ml net + 2531 ml (5) HLD (hyperlipidemia): Code(s): E78.5 - Hyperlipidemia, unspecified Status: Acute Assessment and Plan: Does not appear to be on statins * check a lipid panel 07/23: * LDL 121, HDL 22 * given his significant cancer and htn history he would benefit from low dose statin * will discuss with him if he is willing to start something Plan If he remains stable he can downgrade to a medical floor with tele tomorrow DS: Summary Hospital Course Reason for hospitalization: pericarditis Hospital Course: 07/23:? No acute events overnight.? Patient is doing well this morning.? He still reports a dull pain to his left chest but is improved greatly since yesterday.? His tachycardia and hypertension resolved after 1 L of fluids. He could probably discharge today pending cardiology recs.? I did talk to him about stopping his prednisone but he will need to follow-up with his oncologist.? He has been on 10 mg daily for the last few weeks.? Okay to discontinue now given risk of worsening pericarditis. Time Spent with Patient Time attestation: Total time spent providing and/or coordinating discharge services: 49 Exam Narrative: General: thin, a
--- NOTE | 2023-07-24 13:19 | PM.DS ---
DS: Admitting Diagnosis Discharge Date 07/23 Admitting Diagnosis Chest pain DS: Discharge Diagnosis Discharge Diagnosis (1) Pericardial effusion: Code(s): I31.39 - Other pericardial effusion (noninflammatory) Status: Acute Assessment and Plan: Small to moderate pericardial effusion without tamponade Echo ordered Admitted IMU with telemetry monitoring Cardiology has been consulted, recs appreciated Initially was receiving IV Lasix. This is been discontinued by cards as patient is tachycardic and likely volume depleted. SBP soft 90/60, tachy 115-120's Will give him 1 L of fluids over 10 hours. Can continue with maintenance fluids if he is having recurrent N/V/D. No tamponade. No drainage needed at this time. 07/23: Blood pressures normotensive Tachycardia resolved Plan to downgrade to med-tele versus discharge Stopping steroid. (2) Pericarditis: Code(s): I31.9 - Disease of pericardium, unspecified Status: Acute Assessment and Plan: Evidence of pericardial thickening consistent with pericardial inflammatory process LV systolic function make with EF estimated at 75 an 80% Lasix DC. Signs of volume depletion with low blood pressure and tachycardia Started on NS at 100 mL an hour Colchicine 0.6 mg twice daily and ibuprofen 600 mg BID Stop Toradol EKG showing diffuse ST elevation. Troponin negative. Repeat EKG in the morning per Cardiology. CRP elevated at 29.3 07/23: Continue with scheduled ibuprofen and colchicine BID CRP downtrending 26.4 (3) Nausea vomiting and diarrhea: Code(s): R11.2 - Nausea with vomiting, unspecified; R19.7 - Diarrhea, unspecified Status: Acute Assessment and Plan: Patient has had GI illness over the last week. No known ill contacts Currently now he is admitted is nausea, vomiting, diarrhea has resolved Monitor electrolytes heart healthy diet Zofran as needed for nausea 07/23: resolved (4) CKD (chronic kidney disease), stage III: Code(s): N18.3 - Chronic kidney disease, stage 3 (moderate) Status: Acute Assessment and Plan: Baseline Cr 0.09-1.2 daily monitoring of Cr I&O 07/23: Cr 0.90 I: 3531 ml O: 1000 ml net + 2531 ml (5) HLD (hyperlipidemia): Code(s): E78.5 - Hyperlipidemia, unspecified Status: Acute Assessment and Plan: Does not appear to be on statins check a lipid panel 07/23: LDL 121, HDL 22 given his significant cancer and htn history he would benefit from low dose statin will discuss with him if he is willing to start something Plan If he remains stable he can downgrade to a medical floor with tele tomorrow DS: Summary Hospital Course Reason for hospitalization: pericarditis Hospital Course: 07/23:? No acute events overnight.? Patient is doing well this morning.? He still reports a dull pain to his left chest but is improved greatly since yesterday.? His tachycardia and hypertension resolved after 1 L of fluids. He could probably discharge today pending cardiology recs.? I did talk to him about stopping his prednisone but he will need to follow-up with his oncologist.? He has been on 10 mg daily for the last few weeks.? Okay to discontinue now given risk of worsening pericarditis. Time Spent with Patient Time attestation: Total time spent providing and/or coordinating discharge services: 49 Exam Narrative: General: thin, appears in no acute distress HEENT: normocephalic, atraumatic. Mucous membranes moist. EOMI, PERRLA, bilateral sclera anicteric, no conjunctival injection. Neck supple without JVD, lymphadenopathy, or bruit. Respiratory: clear to auscultation bilaterally. No rales/rhonic/wheezes. Cardiovascular: Regular rate and rhythm, normal S1-S2 upon auscultation. No murmurs. + friction rub. PMI is nondisplaced, capillary refill less than 3 second. Abdomen: Soft, flat, no pulsatile masses, nondistended and
--- NOTE | 2023-07-24 13:40 | PM.PNCARD ---
Progress Note: A&P Assessment and Plan (1) Pericarditis: Code(s): I31.9 - Disease of pericardium, unspecified Status: Acute Assessment and Plan: Patient presents with left chest pain he states is similar to his recent clinical diagnosis of pericarditis which resolved with colchicine 0.6 mg twice daily and ibuprofen 600 mg daily. Symptoms occurred with past week became more severe as he was off colchicine and ibuprofen due to illness. Twelve lead ECG subtle J-point elevation it given his clinical history would recommend continuation of treatment of pericarditis with colchicine 0.6 mg twice daily and ibuprofen 600 mg at least b.i.d. but will schedule for every 8 hours initially to control symptoms and then reduce frequency. Feeling much better today Continue colchicine 600mg b.i.d. for 3 months Continue ibuprofen 600mg q8h for one week, then reduce by 200mg weekly until completely tapered off Follow up in our office [place] for discharge today from a cardiac perspective (2) Pericardial effusion: Code(s): I31.39 - Other pericardial effusion (noninflammatory) Status: Acute Assessment and Plan: Small to moderate pericardial effusion without clear evidence for tamponade physiology echocardiogram. Evidence of pericardial thickening consistent with pericardial inflammatory process. LV systolic function hyperdynamic EF estimated at 75-80%. Etiology of pericardial effusion unclear although most concerning for malignant pericardial effusion given clinical history. Patient mentions recall of his chemotherapy contributing to pericardial effusion or pericarditis although could not recall the name. He has remained hemodynamically stable. (3) Renal cell cancer: Code(s): C64.9 - Malignant neoplasm of unspecified kidney, except renal pelvis Status: Acute Assessment and Plan: Patient also reports a history of bladder cancer and renal cell carcinoma for which he has been treated with immunotherapy, chemotherapy in history radiation due to metastatic disease. Patient has stopped his therapy since recent discharge as it was felt his pericarditis may have been related to his immunotherapy. 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 (4) Bladder tumor: Code(s): D49.4 - Neoplasm of unspecified behavior of bladder Status: Acute Assessment and Plan: As above, patient is followed by oncology in this regard. Further management per the recommendations and per primary care. Subjective Date/time seen: 07/24/23 13:40 Interval history: Cardiology follow up for pericarditis Date of service 07/24/2023: He is feeling significantly better today. Denies any chest pain at rest, no pain with deep breathing. Review of Systems Review of Systems: Remainder of the review of systems is otherwise negative aside from that noted in the HPI. All systems reviewed & are unremarkable except as noted in HPI and below Constitutional: Constitutional: Reports as per HPI and Reports no additional constitutional complaints Eyes: Eyes: Reports as per HPI and Reports no additional eye complaints ENT: Reports system reviewed and no additional complaints, except as documented and Reports as per HPI Cardiovascular: Cardiovascular: Reports as per HPI and Reports no additional cardiovascular complaints Respiratory: Respiratory: Reports as per HPI and Reports no additional respiratory complaints Gastrointestinal: Gastrointestinal: Reports as per HPI and Reports no additional gastrointestinal complaints Genitourinary: Genitourinary: Reports no additional male genitourinary complaints and Reports as per HPI Musculoskeletal: Musculoskeletal: Reports no additional musculoskeletal complaints and Reports as per HPI Integumentary/Breasts: Skin/Breast: Reports system reviewed and no additional complaints, except as docu and Reports as per HPI Ne
== END 2023-07-24 15:18 | disposition home or self-care (01) ==
LOC: ANHED 07-23 01:11 → ANHIMU 07-23 01:33
PROVIDERS: Nurse Practitioner Acute Care; Admitting Provider Internal Medicine; Emergency Provider Emergency Medicine; PCP Emergency Medicine; Visit Provider Internal Medicine
DX: I30.9 Acute pericarditis, unspecified (principal); E83.42 Hypomagnesemia; R11.2 Nausea with vomiting, unspecified; R19.7 Diarrhea, unspecified; I12.9 Hypertensive chronic kidney disease with stage 1 through stage 4 chronic kidney disease, or unspecified chronic kidney disease; N18.30 Chronic kidney disease, stage 3 unspecified; E78.2 Mixed hyperlipidemia; C64.9 Malignant neoplasm of unspecified kidney, except renal pelvis; C67.9 Malignant neoplasm of bladder, unspecified; C79.31 Secondary malignant neoplasm of brain; C79.51 Secondary malignant neoplasm of bone; C78.00 Secondary malignant neoplasm of unspecified lung; F17.210 Nicotine dependence, cigarettes, uncomplicated; Z90.5 Acquired absence of kidney; Z92.21 Personal history of antineoplastic chemotherapy; Z92.3 Personal history of irradiation; Z20.822 Contact with and (suspected) exposure to COVID-19; Z79.899 Other long term (current) drug therapy
CPT/HCPCS: 36415; 71275; 74177; 80053; 80061; 80307; 81001; 83605; 83735; 83880; 84145; 84484; 85025; 85610; 85730; 86140; 87637; 93005; 93306; 96361; 96365; 96366; 96372; 96374; 96375; 96376; 99285; A9270; G0378; G0379; J1650; J1885; J1940; J2270; J2405; J3475; J7030; J7512; Q9967

== ENCOUNTER 2023-08-06 20:24 | Observation (INO) | payer OTHER, SELFPAY ==
--- NOTE | ~2023-08-06 | XR_ITS ---
EXAMINATION: XR chest 2V Exam Date/Time: 08/06/2023 21:30 CDT HISTORY: weakness Comparison: 05/21/2023. RESULT: Lines, tubes, and devices: None. Lungs and pleura: Clear. Cardiomediastinal silhouette: Stable. Other: No acute osseous or upper abdominal finding. Stable lytic left upper rib lesion. IMPRESSION: No acute cardiopulmonary process. Reviewed, dictated and finalized at location K.
--- NOTE | ~2023-08-06 | CT_ITS ---
Clinical Indication: Dyspnea, pericardial effusion, diarrhea CT Scan of the Chest, Abdomen, and Pelvis with Contrast: Technique: Contiguous sections were acquired throughout the chest, abdomen, and pelvis after intraven ous administration of 100 cc of Omnipaque 350. Dose reduction technique was used on this scan by [employer] richarding automated exposure control and iterative reconstruction technique. The dose-length product (DL P) was 657.11 mGy-cm. COMPARISON: 07/23/2023, 08/29/2022 Findings: There is no evidence of any significant mediastinal, hilar or axillary lymphadenopathy. The mediastin al soft tissues appear normal. No pulmonary embolus. No aortic aneurysm or dissection. Pericardial ef fusion seen on recent prior exam is resolved. No pericardial effusions seen currently. No pleural effusion seen. 4 mm right lower lobe pulmonary nodule present (axial image 73). No other pulmonary abnormality seen. There is an expansile lytic lesion with areas of cortical destruction involving the left second rib. The liver, spleen, pancreas, gallbladder, adrenals and right kidney are within normal limits. Status post left nephrectomy. There are atherosclerotic calcifications of the aorta. No lymphadenopathy. Questionable wall thickening sigmoid colon versus underdistention. No bowel obstruction. Urinary bladder is unremarkable. No pelvic mass seen. No ascites. Stable mixed lytic sclerotic lesion at L2. Impression: Questionable wall thickening sigmoid colon versus underdistention. Correlate for any possibility of c olitis/diverticulitis. Chronic metastatic lesions the left second rib and L2 vertebral body. 4 mm right lower lobe pulmonary nodule. Pericardial effusion seen on recent exam from 07/23/2023 is resolved. Reviewed, dictated and finalized at [facility] and [facility]. Impression: Questionable wall thickening sigmoid colon versus underdistention. Correlate fo r any possibility of colitis/diverticulitis. Chronic metastatic lesions the left second rib and L2 vertebral body. 4 mm right lower lobe pulmonary nodule. Pericardial effusion seen on recent exam from 07/23/2023 is resolved.
[2023-08-06 20:27] VITALS: BP 147/97; PULSE 112; RESP 18; TEMP 36.2; O2SAT 100
--- NOTE | 2023-08-06 20:54 | ECG_ITS ---
SEE SCANNED COPY FOR CONFIRMED REPORT. MTDD
[2023-08-06 21:34] LABS: Basophils Percent Auto 0.5 % (0.2-1.2); Eosinophils Absolute Auto 0.2 K/mm3 (0-0.3); Eosinophils Percent Auto 2.4 % (0-4.4); Hematocrit 44.7 % (42.0-52.0); Hemoglobin 15.3 g/dL (14.0-18.0); Immature Granulocyte Absolute 0.02 K/mm3 (0.00-0.031); Immature Granulocyte Percent A 0.3 % (0-0.5); Lymphocytes Absolute Auto 1.71 K/mm3 (0.9-3.2); Lymphocytes Percent Auto 27.3 % (18.3-44.2); Mean Corpuscular HGB Conc 34.2 g/dl (32-36); Mean Corpuscular Hemoglobin 32.3 pg (26-34); Mean Corpuscular Volume 94.5 fl (80-100); Mean Platelet Volume 10.2 fl (7.4-10.4); Monocytes Absolute Auto 0.6 K/mm3 (0.1-0.6); Monocytes Percent Auto 9.7 % (2.6-8.5); Neutrophils Absolute Auto 3.8 K/mm3 (1.3-6.7); Neutrophils Percent Auto 59.8 % (45.5-73.1); Platelet Count Result 248 k/mm3 (150-375); Red Blood Count 4.73 M/mm3 (4.6-6.20); Red Cell Distribution Width 13.1 % (11.5-14.5); White Blood Count 6.3 K/mm3 (4.5-10.0)
[2023-08-06 22:15] VITALS: PULSE 108
[2023-08-06 22:17] VITALS: BP 100/73; PULSE 105; RESP 20; O2SAT 99
[2023-08-06 22:33] VITALS: BP 88/64
[2023-08-06] MEDS: SODIUM CHLORIDE 0.9% IV 1,000 ML 999 ML IV CONT ×2 (22:38→23:13)
[2023-08-06 22:50] LABS: Alanine Aminotransferase 25 U/L (6-50); Albumin Level 4.4 g/dL (3.5-5.1); Alkaline Phosphatase 68 U/L (38-126); Anion Gap 16 mmol/L (4-12); Aspartate Amino Transferase 40 U/L (17-59); Bilirubin,Total 0.7 mg/dL (0.2-1.3); Blood Urea Nitrogen 22 mg/dL (9-20); Calcium 10.7 mg/dL (8.4-10.2); Carbon Dioxide 17 mmol/L (22-30); Chloride 104 mmol/L (98-107); Estimated CRCL calculation 55 ml/min; Estimated Glomerular Filt Rate > 60; Glucose 70 mg/dL (65-110); Potassium 4.1 mmol/L (3.4-5.0); Sodium 137 mmol/L (137-145)
[2023-08-06 23:22] LABS: Troponin I < 0.012 ng/mL (0.000-0.034)
[2023-08-06 23:24] LABS: Lactic Acid Reflex 1.3 mmol/L (0.7-2.0)
[2023-08-06 23:25] LABS: INR 1.1; Prothrombin Time 14.8 Seconds (11.1-14.7)
[2023-08-06 23:28] LABS: Influenza A QL RT-PCR Negative (Negative); Influenza B QL RT-PCR Negative (Negative); RSV RNA, RT-PCR Negative (Negative); SARS-CoV-2 RNA PCR Negative (Negative)
[2023-08-06 23:29] LABS: Erythrocyte Sedimentation Rate 19 mm/hr (0-20)
[2023-08-06 23:41] VITALS: BP 101/68; PULSE 96; RESP 25; O2SAT 100
[2023-08-07] VITALS (7 sets, daily range): BP systolic 93–112; BP diastolic 64–80; PULSE 83–102; RESP 18–22; TEMP 36.3–36.4; O2SAT 98–100; BMI 20.8
[2023-08-07 00:03] LABS: Appearance Urine Clear (Clear); Bacteria Urine None Seen /hpf; Bilirubin Urine Negative (Negative); Blood Urine Negative (Negative); Color Urine Yellow (Yellow); Glucose Urine UA Negative (Negative); Ketones Urine 3+ mg/dL (Negative); Leukocyte Esterase Ur Negative LEU/UL (Negative); Nitrate Urine Negative (Negative); Protein Urine Trace mg/dL (Negative); RBC Urine 0-2 /hpf (0-2); Squamous Epithelial Cell Urine None Seen /hpf (Few); Urobilinogen Urine 0.2 mg/dL (<2.0); WBC Urine 0-5 /hpf (0-3); pH Urine 5.5 (5.0-9.0)
[2023-08-07 00:04] LABS: Add Urine Microscopic? YES
--- NOTE | 2023-08-07 03:03 | ED.GENADULT ---
HPI - General Adult General Chief complaint: Weakness Stated complaint: allergic reaction to medication, n/v/d, weakness Time Seen by Provider: 08/06/23 22:39 History of Present Illness HPI narrative: Patient is a 53-year-old gentleman presents emerged from with chief complaint of nausea vomiting and diarrhea. The patient reports that he was recently in the hospital for pericardial effusion and pericarditis. Patient reports that he has been taking colchicine but stopped it 1-2 days ago. Patient reports that he has also had some itching and reported he has had some hives patient reports he has felt lightheaded and has had generalized aches throughout his entire body. Related Data Home Medications Medication Instructions Recorded Confirmed oxycodone 5 mg tablet 5 mg PO Q6H PRN Pain (Scale Score 07/22/23 07/23/23 7-10) tadalafil 20 mg tablet 20 mg PO DAILY PRN Erectile 07/22/23 07/23/23 Dysfunction acetaminophen 500 mg tablet 500 mg PO Q6H PRN mild pain or 07/23/23 07/23/23 fever Allergies Allergy/AdvReac Type Severity Reaction Status Date / Time No Known Allergies Allergy Verified 08/06/23 20:25 Review of Systems Review of Systems: A 10 system review of systems was completed on the patient and is negative except for what is stated in the HPI. Nursing and ancillary documentation was reviewed. [facility] Past Medical History Medical History Bladder tumor Brain tumor CKD (chronic kidney disease), stage III Essential hypertension HLD (hyperlipidemia) Hypertension Mixed hyperlipidemia Renal cell cancer Surgical History Surgical History H/O brain surgery H/O transurethral resection of bladder tumor (TURBT) History of nephrectomy Hx of tonsillectomy Family History Family History Sibling MVC (motor vehicle collision) Father Choked on food Other Unknown family medical history Social History Social History Social History: spent 3 years in [place] Smoking packs per day: 1 Smoking cigarettes per day: 20.0 Years smoked: 20 Smoking pack-years: 20.00 Smoking status: Current every day smoker Tobacco type: cigarettes Second hand tobacco smoke exposure: Yes Alcohol intake: former Substance use: current Substance use type: marijuana Other substance usage details: Smoker and uses edibles Do You Feel Safe in your Home?: Yes Lack of Transportation: No Lack of Food: Never True Current Housing: I Have Housing Concerned About Future Housing: No Difficulty Paying Gas/Electric Bills: No Difficulty Paying for Meds: No Currently Unemployed: No Education: Grade School Difficulty w/ Childcare or Family Care: No Living arrangements: with family Additional living arrangements comments: lives with Elena Occupation/Education: other Additional occupation/education comments: 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 HEAD: Normocephalic, atraumatic. EYES: PERRLA and EOMI. ENT: Nares clear, no rhinorrhea or epistaxis. Mucous membranes moist. NECK: Supple. CHEST: Clear to auscultation. No respiratory distress. HEART: Regular rate and rhythm. No murmur heard. Normal peripheral pulses. ABDOMEN: Soft, diffuse mild tenderness, nondistended, normal active bowel sounds. EXTREMITIES: Normal range of motion. No edema. SKIN: Warm, dry, no rash. NEURO: No focal deficits. Alert and oriented x3. PSYCH: Normal mood and affect. Course Vital Signs Vital signs: Vital Signs Temperature 36.2 C L 08/06/23 20:27 Pulse
[2023-08-07] MEDS: SODIUM CHLORIDE 0.9% IV 1,000 ML 150 ML IV CONT ×3 (05:32→23:26)
--- NOTE | 2023-08-07 05:51 | ADMGEN ---
This patient, Juan Valencia, was admitted to Medical Room 348-01. Patient/family oriented to hospital policies and general routines including ID bracelet, bed and alarms, visiting hours, pain management, procedures, bathroom and other care routines, personal items, smoking policy, room service/diet, and visiting hours. Information on how to activate the Rapid Response Team has been discussed. Patient/Family are encouraged to report perceived risks to care and to ask questions if they do not understand what they are told or what they should do.
--- NOTE | 2023-08-07 07:59 | PM.IMHP ---
H&P: HPI History of Present Illness Date/Time: 08/07/23 07:59 Chief Complaint: Nausea/vomiting Narrative: Patient is a 53-year-old male who presented to the ED with complaints of Nausea and vomiting for the past few days and generalized weakness. Patient was recently hospitalized for pericarditis and pericardial effusion on 07/23 and treated with colchicine. Patient reported he has stopped the medication about 2 days ago due to the N/V. Patient also has a history of metastatic cancer, HLD,HTN, and CKD 3. Labs were unremarkable other than a CRP of 2.9 down from last visit of , however CT ABD showed thickening in the sigmoid colon versus under distention with possible enteritis. A c-diff is pending and patient was admitted to the medical unit for rehydration, electrolyte replacement, nausea, vomiting and inability to tolerate oral intake at this time. Of note CT did show resolution of the previous pericardial effusion. COVID/influenza/RSV were negative and CXR showed no acute cardiopulmonary process. Review of Systems Review of Systems: All systems reviewed & are unremarkable except as noted in HPI and below PMFSH Past Medical History Medical History Bladder tumor Brain tumor CKD (chronic kidney disease), stage III Essential hypertension HLD (hyperlipidemia) Hypertension Mixed hyperlipidemia Renal cell cancer Surgical History Surgical History H/O brain surgery H/O transurethral resection of bladder tumor (TURBT) History of nephrectomy Hx of tonsillectomy Family History Family History Sibling MVC (motor vehicle collision) Father Choked on food Other Unknown family medical history Social History Social History Social History: 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 years in 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 Smoking packs per day: 1 Smoking cigarettes per day: 20.0 Years smoked: 20 Smoking pack-years: 20.00 Smoking status: Current every day smoker Tobacco type: cigarettes Second hand tobacco smoke exposure: Yes Alcohol intake: never Substance use: current Substance use type: marijuana Other substance usage details: Smoker and uses edibles Do You Feel Safe in your Home?: Yes Lack of Transportation: No Lack of Food: Never True Current Housing: I Have Housing Concerned About Future Housing: No Difficulty Paying Gas/Electric Bills: No Difficulty Paying for Meds: No Currently Unemployed: No Education: Grade School Difficulty w/ Childcare or Family Care: No Living arrangements: with family Additional living arrangements comments: lives with Elena Occupation/Education: other Additional occupation/education comments: 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, [employer] Gender identity (if verbalized by the patient): Male Spiritual care concerns: Yes Meds Home Medications and Allergies Home Medications Medication Instructions Recorded Confirmed Type oxycodone 5 mg tablet 5 mg PO Q6H PRN Pain (Scale Score 07/22/23 08/07/23 History 7-10) tadalafil 20 mg tablet 20 mg PO DAILY PRN Erectile 07/22/23 08/07/23 History Dysfunction acetaminophen 500 mg tablet 500 mg PO Q6H PRN Pain (Scale 07/23/23 08/07/23 History Score 1-3) colchicine 0.6 mg tablet 0.6 mg PO BID #120 tabs 07/24/23 08/07/23 Rx ibuprofen 600 mg tablet 600 mg PO BID #240 tabs 07/24/23 08/07/23 Rx ondansetron 4 mg disintegrating 4 mg PO Q8H PRN nausea and 07/24/23 08/07/23 Rx tablet vomiting #14 tabs Allergies Allergy/AdvReac Type Severity Reaction Status Date / Time No Known Allergies Allergy Verified 08/06/23 20:25 Vital Signs Vital Signs - 24 hr 08/06/23 20:27 08/06/23 22:15 08/06/23 22:17 Temperature 97.2 F L Pulse Rate 112 H 108 H 105 H Respirator
[2023-08-07 08:19] LABS: Hematocrit 41.8 % (42.0-52.0); Hemoglobin 13.6 g/dL (14.0-18.0); Mean Corpuscular HGB Conc 32.5 g/dl (32-36); Mean Corpuscular Hemoglobin 31.6 pg (26-34); Mean Platelet Volume 9.3 fl (7.4-10.4); Platelet Count Result 169 k/mm3 (150-375); Red Blood Count 4.31 M/mm3 (4.6-6.20); Red Cell Distribution Width 13.2 % (11.5-14.5); White Blood Count 6.1 K/mm3 (4.5-10.0)
[2023-08-07] MEDS: IBUPROFEN 600 MG TABLET PO ×2 (08:35→17:13)
[2023-08-07] MEDS: ONDANSETRON INJ 4 MG/2 ML VIAL IV PUSH (08:35)
[2023-08-07] MEDS: PANTOPRAZOLE 40 MG TABLET PO (08:35)
[2023-08-07 08:57] LABS: Alanine Aminotransferase 21 U/L (6-50); Albumin Level 3.5 g/dL (3.5-5.1); Alkaline Phosphatase 64 U/L (38-126); Anion Gap 11 mmol/L (4-12); Aspartate Amino Transferase 34 U/L (17-59); Bilirubin,Total 0.5 mg/dL (0.2-1.3); Blood Urea Nitrogen 17 mg/dL (9-20); Calcium 9.4 mg/dL (8.4-10.2); Carbon Dioxide 14 mmol/L (22-30); Chloride 109 mmol/L (98-107); Estimated CRCL calculation 61 ml/min; Estimated Glomerular Filt Rate > 60; Glucose 50 mg/dL (65-110); Magnesium 1.3 mg/dL (1.6-2.3); Sodium 134 mmol/L (137-145)
[2023-08-07 09:25] LABS: Toxigenic C. Diff NEGATIVE (NEGATIVE)
[2023-08-07 09:41] LABS: Glucose Point of Care 76 mg/dl (65-105)
[2023-08-07 12:04] LABS: Glucose Point of Care 130 mg/dl (65-105)
[2023-08-07] MEDS: MAGNESIUM SULFATE 3GM/D5W100ML 3 GM/100 ML BAG IVPB (12:32)
[2023-08-07] MEDS: LOPERAMIDE HCL 2 MG CAPSULE PO (14:05)
[2023-08-07 17:10] LABS: Glucose Point of Care 128 mg/dl (65-105)
[2023-08-07] MEDS: ACETAMINOPHEN 500 MG TABLET PO (23:26)
[2023-08-08 05:01] LABS: Glucose Point of Care 137 mg/dl (65-105)
[2023-08-08 05:46] LABS: Hematocrit 34.4 % (42.0-52.0); Hemoglobin 11.6 g/dL (14.0-18.0); Mean Corpuscular HGB Conc 33.7 g/dl (32-36); Mean Corpuscular Hemoglobin 31.8 pg (26-34); Mean Corpuscular Volume 94.2 fl (80-100); Mean Platelet Volume 9.5 fl (7.4-10.4); Platelet Count Result 144 k/mm3 (150-375); Red Blood Count 3.65 M/mm3 (4.6-6.20); Red Cell Distribution Width 13.2 % (11.5-14.5); White Blood Count 4.3 K/mm3 (4.5-10.0)
[2023-08-08 06:01] LABS: Alanine Aminotransferase 16 U/L (6-50); Alkaline Phosphatase 54 U/L (38-126); Anion Gap 7 mmol/L (4-12); Aspartate Amino Transferase 30 U/L (17-59); Bilirubin,Total 0.4 mg/dL (0.2-1.3); Blood Urea Nitrogen 12 mg/dL (9-20); Calcium 9.2 mg/dL (8.4-10.2); Carbon Dioxide 17 mmol/L (22-30); Chloride 115 mmol/L (98-107); Estimated CRCL calculation 67 ml/min; Estimated Glomerular Filt Rate > 60; Glucose 91 mg/dL (65-110); Magnesium 1.5 mg/dL (1.6-2.3); Sodium 139 mmol/L (137-145)
[2023-08-08 06:21] VITALS: BP 112/66; PULSE 81; RESP 21; TEMP 36.4; O2SAT 100
[2023-08-08 08:29] LABS: Glucose Point of Care 77 mg/dl (65-105)
[2023-08-08] MEDS: IBUPROFEN 600 MG TABLET PO ×2 (08:29→17:12)
[2023-08-08] MEDS: PANTOPRAZOLE 40 MG TABLET PO (08:29)
[2023-08-08] MEDS: SODIUM CHLORIDE 0.9% IV 1,000 ML 150 ML IV CONT (08:29)
[2023-08-08] MEDS: ENOXAPARIN 40 MG/0.4 ML SYRINGE SUB-Q (08:30)
[2023-08-08 12:12] LABS: Glucose Point of Care 99 mg/dl (65-105)
[2023-08-08 14:00] VITALS: BP 101/70; PULSE 80; RESP 16; TEMP 36.4; O2SAT 100
--- NOTE | 2023-08-08 16:22 | P.PNIM_ITS ---
Progress Note: A&P Assessment and Plan (1) Enteritis: Code(s): K52.9 - Noninfective gastroenteritis and colitis, unspecified Status: Acute Assessment and Plan: * Recent pericarditis TX * Likely secondary to colchicine (Patient stopped 2 days ago due to Nausea and vomiting) * CT showed resolution of pericardial effusion/CRP 2.9/wall thickening sigmoid colon versus underdistention * Resumed ibuprofen TID. Holding colchicine * Status post IV fluids * Antiemetics * C-diff negative * Imodium p.r.n. * monitor electrolytes especially K and mag replace K <4.0/mag <2.0 * Magnesium 1.5 * PPI (2) Dehydration: Code(s): E86.0 - Dehydration Status: Acute Assessment and Plan: * See above * IVF (3) Nausea vomiting and diarrhea: Code(s): R11.2 - Nausea with vomiting, unspecified; R19.7 - Diarrhea, unspecified Status: Acute Assessment and Plan: * See above (4) Essential hypertension: Code(s): I10 - Essential (primary) hypertension Status: Chronic (5) CKD (chronic kidney disease), stage III: Code(s): N18.3 - Chronic kidney disease, stage 3 (moderate) Status: Chronic (6) HLD (hyperlipidemia): Code(s): E78.5 - Hyperlipidemia, unspecified Status: Chronic (7) Smoking: Code(s): F17.200 - Nicotine dependence, unspecified, uncomplicated Status: Chronic Assessment and Plan: * Smoking cessation education (8) Hypoglycemia: Code(s): E16.2 - Hypoglycemia, unspecified Status: Acute Assessment and Plan: * Likely secondary to nausea vomiting and poor oral intake * Hypoglycemic protocol initiated * Accu-Cheks a.c. HS * Encourage oral intake as tolerated (9) Severe protein-calorie malnutrition: Code(s): E43 - Unspecified severe protein-calorie malnutrition Status: Acute Assessment and Plan: * Ensure supplementation * Dietitian consult Plan HX metastatic cancer: Refer to O/P oncologist/pain medication resumed/metastatic nodule noted on LT second rib Subjective Date/time seen: 08/08/23 16:22 Interval history: Patient lying in bed this morning, no acute distress. He reports his diarrhea has improved. He is tolerating some p.o. intake. Will plan to DC IV fluids and oral intake increases. We will continue with Motrin TID as he was not compliant with the [place]. Review of Systems Review of Systems: All systems reviewed & are unremarkable except as noted in HPI and below Exam Narrative: * GENERAL: Patient lying in bed, fair appearing. No acute distress. * EYES: EOMI. PERRLA. * HEENT: Moist mucous membranes. * LUNGS: Lungs clear to auscultation bilaterally. * CARDIOVASCULAR: RRR. No murmur. * ABDOMEN: Soft, mild tenderness and non-distended. BS active. * EXTREMITIES: No edema. * SKIN: No rashes or lesions. Skin warm, dry. * NEUROLOGIC: Alert and oriented x 3. No focal neurological deficits. * PSYCHIATRIC: Appropriate mood and affect. Good judgement and insight. Objective Data Vital Signs Vital Signs: Vital Signs - 24 hr 08/07/23 22:23 08/08/23 06:21 08/08/23 08:00 Temperature 97.4 F L 97.5 F L Pulse Rate 84 81 Respiratory Rate 21 H 21 H Blood Pressure 107/64 112/66 Pulse Oximetry 100 100 Oxygen Delivery Room Air 08/08/23 14:00
--- NOTE | 2023-08-08 16:22 | PM.IMPN ---
Progress Note: A&P Assessment and Plan (1) Enteritis: Code(s): K52.9 - Noninfective gastroenteritis and colitis, unspecified Status: Acute Assessment and Plan: Recent pericarditis TX Likely secondary to colchicine (Patient stopped 2 days ago due to Nausea and vomiting) CT showed resolution of pericardial effusion/CRP 2.9/wall thickening sigmoid colon versus underdistention Resumed ibuprofen TID. Holding colchicine Status post IV fluids Antiemetics C-diff negative Imodium p.r.n. monitor electrolytes especially K and mag replace K <4.0/mag <2.0 Magnesium 1.5 PPI (2) Dehydration: Code(s): E86.0 - Dehydration Status: Acute Assessment and Plan: See above IVF (3) Nausea vomiting and diarrhea: Code(s): R11.2 - Nausea with vomiting, unspecified; R19.7 - Diarrhea, unspecified Status: Acute Assessment and Plan: See above (4) Essential hypertension: Code(s): I10 - Essential (primary) hypertension Status: Chronic (5) CKD (chronic kidney disease), stage III: Code(s): N18.3 - Chronic kidney disease, stage 3 (moderate) Status: Chronic (6) HLD (hyperlipidemia): Code(s): E78.5 - Hyperlipidemia, unspecified Status: Chronic (7) Smoking: Code(s): F17.200 - Nicotine dependence, unspecified, uncomplicated Status: Chronic Assessment and Plan: Smoking cessation education (8) Hypoglycemia: Code(s): E16.2 - Hypoglycemia, unspecified Status: Acute Assessment and Plan: Likely secondary to nausea vomiting and poor oral intake Hypoglycemic protocol initiated Accu-Cheks a.c. HS Encourage oral intake as tolerated (9) Severe protein-calorie malnutrition: Code(s): E43 - Unspecified severe protein-calorie malnutrition Status: Acute Assessment and Plan: Ensure supplementation Dietitian consult Plan HX metastatic cancer: Refer to O/P oncologist/pain medication resumed/metastatic nodule noted on LT second rib Subjective Date/time seen: 08/08/23 16:22 Interval history: Patient lying in bed this morning, no acute distress. He reports his diarrhea has improved. He is tolerating some p.o. intake. Will plan to DC IV fluids and oral intake increases. We will continue with Motrin TID as he was not compliant with the [place]. Review of Systems Review of Systems: All systems reviewed & are unremarkable except as noted in HPI and below Exam Narrative: GENERAL: Patient lying in bed, fair appearing. No acute distress. EYES: EOMI. PERRLA. HEENT: Moist mucous membranes. LUNGS: Lungs clear to auscultation bilaterally. CARDIOVASCULAR: RRR. No murmur. ABDOMEN: Soft, mild tenderness and non-distended. BS active. EXTREMITIES: No edema. SKIN: No rashes or lesions. Skin warm, dry. NEUROLOGIC: Alert and oriented x 3. No focal neurological deficits. PSYCHIATRIC: Appropriate mood and affect. Good judgement and insight. Objective Data Vital Signs Vital Signs: Vital Signs - 24 hr 08/07/23 22:23 08/08/23 06:21 08/08/23 08:00 Temperature 97.4 F L 97.5 F L Pulse Rate 84 81 Respiratory Rate 21 H 21 H Blood Pressure 107/64 112/66 Pulse Oximetry 100 100 Oxygen Delivery Room Air 08/08/23 14:00 Temperature 97.6 F Pulse Rate 80 Respiratory Rate 16 Blood Pressure 101/70 Pulse Oximetry 100 Oxygen Delivery Intake/Output Intake/Output: Intake & Output 08/05/23 08/06/23 08/07/23 08/08/23 23:59 23:59 23:59 23:59 Intake Total 1000 3830 1960 Balance 1000 3830 1959 Meds/Results Medications: Active Medications Generic Name Dose Route Start Last Admin Trade Name Freq PRN Reason Stop Dose Admin Acetaminophen 500 mg 08/07/23 06:28 08/07/23 23:26 Acetaminophen 500 Mg Tablet PO 500 mg Q6H PRN Administration Mild Pain (1-3) or Fever Dextrose 12.5 gm 08/07/23 08:58 Dextrose 50% 25 Gm/50 Ml [employer]
[2023-08-08 17:18] LABS: Glucose Point of Care 86 mg/dl (65-105)
[2023-08-08 19:58] VITALS: BP 110/75; PULSE 85; RESP 18; TEMP 36.6; O2SAT 99
[2023-08-08 21:15] LABS: Glucose Point of Care 92 mg/dl (65-105)
[2023-08-09 05:47] VITALS: BP 115/73; PULSE 72; RESP 18; TEMP 36.4; O2SAT 98
[2023-08-09 06:21] LABS: Hematocrit 35.2 % (42.0-52.0); Hemoglobin 11.8 g/dL (14.0-18.0); Mean Corpuscular HGB Conc 33.5 g/dl (32-36); Mean Corpuscular Hemoglobin 31.6 pg (26-34); Mean Corpuscular Volume 94.1 fl (80-100); Mean Platelet Volume 10.3 fl (7.4-10.4); Platelet Count Result 155 k/mm3 (150-375); Red Blood Count 3.74 M/mm3 (4.6-6.20); Red Cell Distribution Width 13.2 % (11.5-14.5); White Blood Count 4.6 K/mm3 (4.5-10.0)
[2023-08-09 06:41] LABS: Alanine Aminotransferase 16 U/L (6-50); Albumin Level 3.2 g/dL (3.5-5.1); Alkaline Phosphatase 55 U/L (38-126); Anion Gap 6 mmol/L (4-12); Aspartate Amino Transferase 29 U/L (17-59); Bilirubin,Total 0.5 mg/dL (0.2-1.3); Blood Urea Nitrogen 15 mg/dL (9-20); Calcium 9.4 mg/dL (8.4-10.2); Carbon Dioxide 21 mmol/L (22-30); Chloride 110 mmol/L (98-107); Estimated CRCL calculation 75 ml/min; Estimated Glomerular Filt Rate > 60; Glucose 87 mg/dL (65-110); Potassium 3.9 mmol/L (3.4-5.0); Sodium 137 mmol/L (137-145)
[2023-08-09 08:23] LABS: Glucose Point of Care 89 mg/dl (65-105)
[2023-08-09] MEDS: PANTOPRAZOLE 40 MG TABLET PO (08:40)
[2023-08-09] MEDS: IBUPROFEN 600 MG TABLET PO (08:40)
[2023-08-09] MEDS: ENOXAPARIN 40 MG/0.4 ML SYRINGE SUB-Q (08:40)
--- NOTE | 2023-08-09 10:56 | PM.DS ---
DS: Admitting Diagnosis Discharge Date 08/09/23 Admitting Diagnosis Nausea/vomiting DS: Discharge Diagnosis Discharge Diagnosis (1) Enteritis: Code(s): K52.9 - Noninfective gastroenteritis and colitis, unspecified Status: Acute Assessment and Plan: Recent pericarditis TX Likely secondary to colchicine (Patient stopped 2 days ago due to Nausea and vomiting) CT showed resolution of pericardial effusion/CRP 2.9/wall thickening sigmoid colon versus underdistention Resumed ibuprofen TID. Holding colchicine due to allergic reaction C-diff negative Imodium p.r.n. PPI (2) Dehydration: Code(s): E86.0 - Dehydration Status: Resolved (3) Nausea vomiting and diarrhea: Code(s): R11.2 - Nausea with vomiting, unspecified; R19.7 - Diarrhea, unspecified Status: Acute Assessment and Plan: See above (4) Essential hypertension: Code(s): I10 - Essential (primary) hypertension Status: Chronic (5) CKD (chronic kidney disease), stage III: Code(s): N18.3 - Chronic kidney disease, stage 3 (moderate) Status: Chronic (6) HLD (hyperlipidemia): Code(s): E78.5 - Hyperlipidemia, unspecified Status: Chronic (7) Smoking: Code(s): F17.200 - Nicotine dependence, unspecified, uncomplicated Status: Chronic Assessment and Plan: Smoking cessation education (8) Hypoglycemia: Code(s): E16.2 - Hypoglycemia, unspecified Status: Acute Assessment and Plan: Likely secondary to nausea vomiting and poor oral intake Hypoglycemic protocol initiated Accu-Cheks a.c. HS Encourage oral intake as tolerated (9) Severe protein-calorie malnutrition: Code(s): E43 - Unspecified severe protein-calorie malnutrition Status: Acute Assessment and Plan: Ensure supplementation Plan HX metastatic cancer: Refer to O/P oncologist/pain medication resumed/metastatic nodule noted on LT second rib DS: Summary Hospital Course Hospital Course: Patient is a 53-year-old male with PMH of metastatic cancer, HLD, HTN, and CKD 3 admitted for nausea and vomiting and generalized weakness. Patient was recently hospitalized for pericarditis and pericardial effusion on 07/23 and treated with colchicine. Patient reported he has stopped the medication about 2 days prior to admission due to the N/V and subsequent rashes he developed on his chest and stomach. Labs were unremarkable other than a CRP of 2.9 down from last visit of 29, however CT ABD showed thickening in the sigmoid colon versus under distention with possible enteritis. C-diff was negative and he received rehydration via IVF, electrolyte replacement. CT did show resolution of the previous pericardial effusion. COVID/influenza/RSV were negative and CXR showed no acute cardiopulmonary process. Patient is now feeling better and tolerating PO intake. GI upset has resolved to his baseline. Discussed with patient importance of treatment for pericarditis, but patient is unwilling to consider steroids as second line due to his probable allergic reaction/severe side effects to the colchicine. Will d/c home on ibuprofen TID and repeat BNP prior to his PCP follow up next week. Status at Discharge Functional status at discharge: independent ambulation Overall status at discharge: patient is back to baseline Time Spent with Patient Time attestation: Total time spent providing and/or coordinating discharge services: Exam Narrative: GENERAL: Patient lying in bed, fair appearing. No acute distress. EYES: EOMI. PERRLA. HEENT: Moist mucous membranes. LUNGS: Lungs clear to auscultation bilaterally. CARDIOVASCULAR: RRR. No murmur. ABDOMEN: Soft, non-tender and non-distended. BS active. EXTREMITIES: No edema. SKIN: No rashes or lesions. Skin warm, dry. NEUROLOGIC: Alert and oriented x 3. No focal neurological deficits. PSYCHIATRIC: Appropriate mood and affect. Good judgement
== END 2023-08-09 12:56 | disposition home or self-care (01) ==
LOC: ANHED 08-07 04:28 → ANH3MED 08-08 08:13
PROVIDERS: Nurse Practitioner Family; Physician Assistant; Admitting Provider Internal Medicine; Emergency Provider Emergency Medicine; PCP Emergency Medicine; Visit Provider Hospitalist
DX: K52.9 Noninfective gastroenteritis and colitis, unspecified (principal); E86.0 Dehydration; I12.9 Hypertensive chronic kidney disease with stage 1 through stage 4 chronic kidney disease, or unspecified chronic kidney disease; N18.30 Chronic kidney disease, stage 3 unspecified; Z90.5 Acquired absence of kidney; F12.90 Cannabis use, unspecified, uncomplicated; F17.210 Nicotine dependence, cigarettes, uncomplicated; E16.2 Hypoglycemia, unspecified; E43 Unspecified severe protein-calorie malnutrition; Z68.20 Body mass index [BMI] 20.0-20.9, adult; Z79.891 Long term (current) use of opiate analgesic; Z20.822 Contact with and (suspected) exposure to COVID-19
CPT/HCPCS: 36415; 71046; 71275; 74177; 80053; 81001; 82948; 83605; 83735; 84484; 85025; 85027; 85610; 85652; 85730; 86140; 87493; 87637; 93005; 96360; 96361; 96365; 96366; 96372; 96375; 99285; A9270; G0378; J1650; J2405; J3475; J7030; Q9967

== ENCOUNTER 2023-08-21 14:26 | Observation (INO) | payer OTHER, SELFPAY ==
[2023-08-21] VITALS (12 sets, daily range): BP systolic 81–107; BP diastolic 58–75; PULSE 84–104; RESP 12–21; TEMP 36.5; O2SAT 97–100
--- NOTE | ~2023-08-21 | XR_ITS ---
EXAMINATION: XR ankle RT min 3V DATE: 08/21/2023 17:11 INDICATION: Right ankle pain post twisting injury TECHNIQUE: Anteroposterior, oblique and lateral views of the right ankle were obtained. COMPARISON: None. FINDINGS: Alignment is normal. No fracture. Joint spaces are well maintained. No ankle joint effusion. The so ft tissues are unremarkable. IMPRESSION: 1. Negative right ankle radiographs. Reviewed, dictated and finalized at location A.
--- NOTE | ~2023-08-21 | XR_ITS ---
EXAMINATION: XR chest 1V portable DATE: 08/21/2023 17:10 INDICATION: Weakness TECHNIQUE: frontal view of the chest was obtained. COMPARISON: Chest radiograph and CT dated 08/06/23 FINDINGS: The lungs remain clear with no focal airspace opacities, pulmonary edema, pleural effusion or pneumot horax. The cardiomediastinal silhouette is normal. Visualized bones and soft tissues are unremarkable . IMPRESSION: 1. No acute cardiopulmonary disease. Reviewed, dictated and finalized at location A.
--- NOTE | 2023-08-21 16:54 | ECG_ITS ---
SEE SCANNED COPY FOR CONFIRMED REPORT MTDD
--- NOTE | 2023-08-21 17:01 | ED.NAVMDI ---
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 Patient was seen in our emergency department on 05/21/2023 for pleuritic chest pain. He was diagnosed with a pericardial effusion and admitted. Patient has been evaluated in our emergency department multiple times since for similar symptoms and admitted. He has also been transferred to [facility] where his cancer care is. He has been on colchicine and was discontinued for n/v s well as prednisone which was subsequently discontinued as well. He is now on ibuprofen for pericarditis but states he has not been compliant within the past 2 days secondary to current illness. He is complaining of nausea, multiple episodes of vomiting and diarrhea in the past 4 days as well as generalized weakness. He denies chest pain or shortness of breath at the onset of the symptoms, lightheadedness, abdominal pain, fever, cough or congestion, dysuria or hematuria. Patient was discharged from our hospital most recently on 08/09/2023. At that time he had a negative C diff test. Patient is also reporting pain to his right ankle. States this morning while he was getting up from the floor he twisted his right ankle and has been having difficulty bearing weight since. States he took an oxycodone prior to arrival without improvement. <Sweetie Espinosa PA-C - Last Filed: 08/21/23 18:40> Related Data Home medications: Home Medications Medication Instructions Recorded Confirmed oxycodone 5 mg tablet 5 mg PO Q6H PRN Pain (Scale Score 07/22/23 08/13/23 7-10) tadalafil 20 mg tablet 20 mg PO DAILY PRN Erectile 07/22/23 08/13/23 Dysfunction acetaminophen 500 mg tablet 500 mg PO Q6H PRN Pain (Scale 07/23/23 08/13/23 Score 1-3) <Sweetie Espinosa PA-C - Last Filed: 08/21/23 18:40> Allergies/Adverse reactions: Allergies Allergy/AdvReac Type Severity Reaction Status Date / Time colchicine Allergy Severe Rash Verified 08/13/23 10:31 prednisone AdvReac Severe Shakiness Verified 08/13/23 10:31 <Sweetie Espinosa PA-C - Last Filed: 08/21/23 18:40> Review of Systems Review of Systems: CONSTITUTIONAL: See HPI EYES: Denies visual changes, redness, or discharge. ENT: Denies rhinorrhea, congestion, sore throat, or otalgia. CARDIOVASCULAR: Denies chest pain, palpitations, or edema. RESPIRATORY: Denies cough or dyspnea. GASTROINTESTINAL: Denies abdominal pain, nausea, vomiting, or diarrhea. GENITOURINARY: Denies dysuria or hematuria. SKIN: Denies rash or itching. MUSCULOSKELETAL:See HPI NEUROLOGIC: Denies headache, numbness, or weakness. PSYCHIATRIC: Denies anxiety or depression. <Sweetie Espinosa PA-C - Last Filed: 08/21/23 18:40> [facility] Past Medical History Medical History: Medical History Bladder tumor Brain tumor CKD (chronic kidney disease), stage III Essential hypertension Fatigue HLD (hyperlipidemia) Hyperglycemia Hypertension Mixed hyperlipidemia Renal cell cancer <Sweetie Espinosa PA-C - Last Filed: 08/21/23 18:40> Surgical History Surgical History: Surgical History H/O brain surgery H/O transurethral resection of bladder tumor (TURBT) History of nephrectomy Hx of tonsillectomy <Sweetie Espinosa PA-C - Last Filed: 08/21/23 18:40> Family History Family Hist
[2023-08-21] MEDS: SODIUM CHLORIDE 0.9% IV 1,000 ML 999 ML IV CONT ×3 (17:16→22:46)
[2023-08-21 17:51] LABS: Basophils Percent Auto 0.6 % (0.2-1.2); Eosinophils Absolute Auto 0.3 K/mm3 (0-0.3); Eosinophils Percent Auto 4.7 % (0-4.4); Hematocrit 40.3 % (42.0-52.0); Hemoglobin 12.9 g/dL (14.0-18.0); Immature Granulocyte Absolute 0.02 K/mm3 (0.00-0.031); Immature Granulocyte Percent A 0.3 % (0-0.5); Lymphocytes Absolute Auto 2.32 K/mm3 (0.9-3.2); Lymphocytes Percent Auto 34.3 % (18.3-44.2); Mean Corpuscular Hemoglobin 31.2 pg (26-34); Mean Corpuscular Volume 97.6 fl (80-100); Monocytes Absolute Auto 0.8 K/mm3 (0.1-0.6); Monocytes Percent Auto 11.2 % (2.6-8.5); Neutrophils Absolute Auto 3.3 K/mm3 (1.3-6.7); Neutrophils Percent Auto 48.9 % (45.5-73.1); Platelet Count Result 198 k/mm3 (150-375); Red Blood Count 4.13 M/mm3 (4.6-6.20); Red Cell Distribution Width 13.7 % (11.5-14.5); White Blood Count 6.8 K/mm3 (4.5-10.0)
[2023-08-21 18:05] LABS: Alanine Aminotransferase 26 U/L (6-50); Albumin Level 4.1 g/dL (3.5-5.1); Alkaline Phosphatase 63 U/L (38-126); Anion Gap 12 mmol/L (4-12); Aspartate Amino Transferase 50 U/L (17-59); Bilirubin,Total 0.7 mg/dL (0.2-1.3); Blood Urea Nitrogen 20 mg/dL (9-20); Calcium 10.6 mg/dL (8.4-10.2); Carbon Dioxide 22 mmol/L (22-30); Chloride 101 mmol/L (98-107); Estimated CRCL calculation 60 ml/min; Estimated Glomerular Filt Rate > 60; Glucose 49 mg/dL (65-110); Lipase 83 U/L (23-300); Magnesium 1.4 mg/dL (1.6-2.3); Potassium 3.8 mmol/L (3.4-5.0); Sodium 135 mmol/L (137-145)
[2023-08-21] MEDS: IBUPROFEN 600 MG TABLET PO (18:11)
[2023-08-21 18:12] LABS: Troponin I < 0.012 ng/mL (0.000-0.034)
[2023-08-21] MEDS: ACETAMINOPHEN 325 MG TABLET 650 MG PO (18:12)
[2023-08-21 18:33] LABS: Glucose Point of Care 42 mg/dl (65-105)
[2023-08-21] MEDS: DEXTROSE 10% 1,000 ML 50 ML IV CONT (18:46)
[2023-08-21 18:55] LABS: Influenza A QL RT-PCR Negative (Negative); Influenza B QL RT-PCR Negative (Negative); RSV RNA, RT-PCR Negative (Negative); SARS-CoV-2 RNA PCR Negative (Negative)
[2023-08-21 19:22] LABS: Glucose Point of Care 95 mg/dl (65-105)
[2023-08-21] MEDS: MAGNESIUM SULF 2 GM/WATER 50ML 2 GM/50 ML BAG IVPB (19:41)
[2023-08-21 21:33] LABS: Glucose Point of Care 134 mg/dl (65-105)
[2023-08-21 21:36] LABS: Appearance Urine Clear (Clear); Bilirubin Urine Negative (Negative); Blood Urine Negative (Negative); Color Urine Yellow (Yellow); Glucose Urine UA Negative (Negative); Ketones Urine 3+ mg/dL (Negative); Leukocyte Esterase Ur Negative LEU/UL (Negative); Nitrate Urine Negative (Negative); Protein Urine Negative (Negative); Specific Grav Ur 1.021 (1.001-1.035); pH Urine 5.5 (5.0-9.0)
[2023-08-21 21:38] LABS: Add Urine Microscopic? NO
--- NOTE | 2023-08-21 22:46 | PC.NURSE ---
Attempted to dc patient. Exit vitals showed bp in the 80s. USHA Herrera notified. 1L of NS administered.
[2023-08-22] VITALS (11 sets, daily range): BP systolic 86–120; BP diastolic 65–81; PULSE 75–88; RESP 17–24; TEMP 36.1–36.8; O2SAT 99–100; BMI 20.2
[2023-08-22 00:38] LABS: Glucose Point of Care 79 mg/dl (65-105)
[2023-08-22] MEDS: SODIUM CHLORIDE 0.9% IV 1,000 ML 125 ML IV CONT ×2 (01:31→09:29)
[2023-08-22 02:16] LABS: Glucose Point of Care 101 mg/dl (65-105)
--- NOTE | 2023-08-22 02:29 | ADMGEN ---
This patient, Juan Valencia, was admitted to Medical Room 245-. Patient/family oriented to hospital policies and general routines including ID bracelet, bed and alarms, visiting hours, pain management, procedures, bathroom and other care routines, personal items, smoking policy, room service/diet, and visiting hours. Information on how to activate the Rapid Response Team has been discussed. Patient/Family are encouraged to report perceived risks to care and to ask questions if they do not understand what they are told or what they should do.
--- NOTE | 2023-08-22 03:29 | PM.IMHP ---
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 . Patient follows with [facility] for his cancer care. Patient has taken ibuprofen for pericarditis he has been taking with last few days denied any chest pain any shortness of breath does feel lightheaded with cough no abdominal pain no congestion no hematuria the patient has recently been diagnosed with C diff battery was tested -08/23. Review of Systems Review of Systems: All systems reviewed & are unremarkable except as noted in HPI and below PMFSH Past Medical History Medical History Bladder tumor Brain tumor CKD (chronic kidney disease), stage III Essential hypertension Fatigue HLD (hyperlipidemia) Hyperglycemia Hypertension Mixed hyperlipidemia Renal cell cancer Surgical History Surgical History H/O brain surgery H/O transurethral resection of bladder tumor (TURBT) History of nephrectomy Hx of tonsillectomy Family History Family History (Updated 08/22/23 @ 02:41 by Ginny Galvan RN) Sibling MVC (motor vehicle collision) Father Choked on food Mother Diabetes mellitus Social History Social History Social History: spent 3 years in [facility] Smoking packs per day: 1 Smoking cigarettes per day: 20.0 Years smoked: 20 Smoking pack-years: 20.00 Smoking status: Current every day smoker Tobacco type: cigarettes Second hand tobacco smoke exposure: Yes Alcohol intake: never Substance use: current Substance use type: marijuana Other substance usage details: Smoker and uses edibles Do You Feel Safe in your Home?: Yes Lack of Transportation: No Lack of Food: Never True Current Housing: I Have Housing Concerned About Future Housing: YES Difficulty Paying Gas/Electric Bills: YES Difficulty Paying for Meds: YES Currently Unemployed: No Education: Grade School Difficulty w/ Childcare or Family Care: No Living arrangements: with family Additional living arrangements comments: lives with Elena Occupation/Education: other Additional occupation/education comments: 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, [employer] Gender identity (if verbalized by the patient): Male Spiritual care concerns: No Meds Home Medications and Allergies Home Medications Medication Instructions Recorded Confirmed Type oxycodone 5 mg tablet 5 mg PO Q6H PRN Pain (Scale Score 07/22/23 08/22/23 History 7-10) tadalafil 20 mg tablet 20 mg PO DAILY PRN Erectile 07/22/23 08/22/23 History Dysfunction acetaminophen 500 mg tablet 500 mg PO Q6H PRN Pain (Scale 07/23/23 08/22/23 History Score 1-3) ibuprofen 600 mg tablet 600 mg PO TID #90 tabs 08/09/23 08/22/23 Rx ondansetron 4 mg disintegrating 4 mg PO Q8H PRN nausea and 08/13/23 08/22/23 Rx tablet vomiting #20 tabs sertraline 50 mg tablet 50 mg PO DAILY #90 tabs 08/13/23 08/22/23 Rx Allergies Allergy/AdvReac Type Severity Reaction Status Date / Time colchicine Allergy Severe Rash Verified 08/13/23 10:31 prednisone AdvReac Severe Shakiness Verified 08/13/23 10:31 Vital Signs Vital Signs - 24 hr 08/21/23 14:43 08/21/23 16:35 08/21/23 19:18 Temperature 36.5 C Pulse Rate 104 H 88 100 Respiratory Rate 20 18 19 Blood Pressure 93/75 L 104/74 107/72 Pulse Oximetry 100 98 99 Oxygen Delivery Ro
[2023-08-22 05:29] LABS: Magnesium 1.6 mg/dL (1.6-2.3)
[2023-08-22 05:36] LABS: Alanine Aminotransferase 19 U/L (6-50); Albumin Level 2.9 g/dL (3.5-5.1); Alkaline Phosphatase 51 U/L (38-126); Anion Gap 7 mmol/L (4-12); Aspartate Amino Transferase 34 U/L (17-59); Bilirubin,Total 0.6 mg/dL (0.2-1.3); Blood Urea Nitrogen 15 mg/dL (9-20); Calcium 9.3 mg/dL (8.4-10.2); Carbon Dioxide 20 mmol/L (22-30); Chloride 108 mmol/L (98-107); Estimated CRCL calculation 74 ml/min; Estimated Glomerular Filt Rate > 60; Glucose 86 mg/dL (65-110); Potassium 3.8 mmol/L (3.4-5.0); Sodium 135 mmol/L (137-145)
[2023-08-22] MEDS: SERTRALINE HCL 50 MG TABLET PO (08:18)
--- NOTE | 2023-08-22 13:51 | PM.EVENT ---
Event Note Event Note Event Note: Assumed care today and agree with assessment and treatment plan from Dr. Owens. Patient states that he has chronic pain which is 8/10 in his back which is related to his renal cell carcinoma. He also twisted his right ankle recently which he states he cannot bear weight without pain. His ankle x-ray was negative for fracture or malalignment. He still reports nausea however no vomiting. He is able to eat and drink. He just had a bowel movement, stool was sent for culture and C diff specimen was also obtained. He is requesting his oxycodone to be restarted. He denies any fever, chills, vomiting, chest pain, shortness a breath. He endorses abdominal discomfort, nausea, diarrhea, chronic back pain, right ankle pain. General: In no acute distress, well nourished Head: atraumatic, no encephalopathy Eyes: EOMI, PERRLA, sclera clear ENT: moist mucous membranes, nasal passages clear Neck: supple, no JVD, no adenopathy, trachea midline Cardiac: Normal S1 and S2. RRR, No murmur, gallops or friction rubs, peripheral pulses intact. Respiratory: Lungs clear to auscultation, no adventitious lung sounds, currently on room air Gastrointestinal: soft, non-distended, non-tender, normoactive bowel sounds. : voiding without difficulty. Extremities: moves all extremities well, no edema, reports ankle pain Skin: clean, dry, intact. No wounds or lesions. Neuro: Alert and oriented x4, cranial nerves intact, no neuro deficits. Psych: normal mood, normal affect, interactive
[2023-08-22 15:20] LABS: Toxigenic C. Diff NEGATIVE (NEGATIVE)
[2023-08-22] MEDS: oxyCODONE HCL (*CRX) 5 MG TAB IR PO (15:34)
[2023-08-22] MEDS: HYDROcodone/acetaminophen (*CRX) 5-325 MG TABLET 1 TAB PO (20:50)
[2023-08-23] VITALS (9 sets, daily range): BP systolic 107–118; BP diastolic 69–76; PULSE 76–90; RESP 17–18; TEMP 36.7–37.1; O2SAT 96–100
[2023-08-23] MEDS: SODIUM CHLORIDE 0.9% IV 1,000 ML 125 ML IV CONT ×2 (01:00→08:09)
[2023-08-23 05:33] LABS: Basophils Percent Auto 0.9 % (0.2-1.2); Eosinophils Absolute Auto 0.3 K/mm3 (0-0.3); Eosinophils Percent Auto 5.8 % (0-4.4); Hematocrit 30.9 % (42.0-52.0); Hemoglobin 10.2 g/dL (14.0-18.0); Immature Granulocyte Absolute 0.01 K/mm3 (0.00-0.031); Immature Granulocyte Percent A 0.2 % (0-0.5); Lymphocytes Absolute Auto 1.68 K/mm3 (0.9-3.2); Lymphocytes Percent Auto 37.3 % (18.3-44.2); Mean Corpuscular Hemoglobin 31.5 pg (26-34); Mean Corpuscular Volume 95.4 fl (80-100); Mean Platelet Volume 9.9 fl (7.4-10.4); Monocytes Absolute Auto 0.6 K/mm3 (0.1-0.6); Monocytes Percent Auto 12.2 % (2.6-8.5); Neutrophils Percent Auto 43.6 % (45.5-73.1); Platelet Count Result 150 k/mm3 (150-375); Red Blood Count 3.24 M/mm3 (4.6-6.20); Red Cell Distribution Width 13.3 % (11.5-14.5); White Blood Count 4.5 K/mm3 (4.5-10.0)
[2023-08-23 05:46] LABS: Alanine Aminotransferase 17 U/L (6-50); Albumin Level 2.9 g/dL (3.5-5.1); Alkaline Phosphatase 52 U/L (38-126); Anion Gap 6 mmol/L (4-12); Aspartate Amino Transferase 33 U/L (17-59); Bilirubin,Total 0.6 mg/dL (0.2-1.3); Blood Urea Nitrogen 7 mg/dL (9-20); Carbon Dioxide 23 mmol/L (22-30); Chloride 107 mmol/L (98-107); Estimated CRCL calculation 74 ml/min; Estimated Glomerular Filt Rate > 60; Glucose 76 mg/dL (65-110); Potassium 3.8 mmol/L (3.4-5.0); Sodium 136 mmol/L (137-145)
[2023-08-23] MEDS: oxyCODONE HCL (*CRX) 5 MG TAB IR PO ×2 (08:10→17:00)
[2023-08-23] MEDS: SERTRALINE HCL 50 MG TABLET PO (08:10)
--- NOTE | 2023-08-23 10:34 | PM.IMPN ---
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 Patient was seen in our emergency department on 05/21/2023 for pleuritic chest pain.? He was diagnosed with a pericardial effusion and admitted.? Patient has been evaluated in our emergency department multiple times since for similar symptoms and admitted.? He has also been transferred to [facility] where his cancer care is.? He has been on colchicine and was discontinued for n/v s well as prednisone which was subsequently discontinued as well.? He is now on ibuprofen for pericarditis but states he has not been compliant within the past 2 days secondary to current illness.? He is complaining of nausea, multiple episodes of vomiting and diarrhea in the past 4 days as well as generalized weakness.? He denies chest pain or shortness of breath at the onset of the symptoms, lightheadedness, abdominal pain, fever, cough or congestion, dysuria or hematuria.? Patient was discharged from our hospital most recently on 08/09/2023.? At that time he had a negative C diff test.? Patient is also reporting pain to his right ankle.? States this morning while he was getting up from the floor he twisted his right ankle and has been having difficulty bearing weight since.? States he took an oxycodone prior to arrival without improvement. his bp was low and was tacahycardic on admission indicating dehydration. no other signs of infecetion were noted. he was also hypoglycemic on admission which has now resolved. his nauseea, vomiting and diarrhea has resolved. his stool studies are pending. c diff is negative. LUH mild due to dehydration is improved and resolved. geeneralwed weakness; PT/OT to see history of lung cancer with metastases history of severe protein calorie malnutrition. History of hypertension. History of hyperlipidemia. DVT proph: Subjective Date/time seen: 08/23/23 10:34 Interval history: no overnight events, diarrhea has improved. josé miguel eels weak and unsteady on his feeet. no abdominal pain, nausea, vomiting. Review of Systems Review of Systems: All systems reviewed & are unremarkable except as noted in HPI and below Exam Narrative: GENERAL: Well appearing, no acute distress. HEAD: Normocephalic, atraumatic. NECK: Supple. No adenopathy, no masses. RESPIRATORY: respirations nonlabored. , no rales, wheezing. CARDIOVASCULAR: Regular rate and rhythm without murmurs, . Peripheral pulses 2+ and equal bilaterally. ABDOMINAL: Soft, nontender, nondistended, no hepatosplenomegaly. Normoactive BS. SKIN: Warm, dry, NEURO: A&O X3. Moves all extremities Objective Data Vital Signs Vital Signs: Vital Signs - 24 hr 08/22/23 14:00 08/22/23 12:00 08/22/23 16:00 Temperature 96.9 F L Pulse Rate 78 88 79 Respiratory Rate 24 H Blood Pressure 120/78 Pulse Oximetry 100 Oxygen Delivery 08/22/23 19:26 08/22/23 20:42 08/22/23 20:42 Temperature 98.2 F Pulse Rate 79 82 Respiratory Rate 18 Blood Pressure 104/69 Pulse Oximetry 100 Oxygen Delivery Room Air 08/23/23 00:00 08/23/23 04:00 08/23/23 05:01 Temperature 98.7 F Pulse Rate 90 79 81 Respiratory Rate 18 Blood Pressure 109/72 Pulse Oximetry 96 Oxygen Delivery 08/23/23 07:30 08/23/23 08:01 Temperature Pulse Rate 83 Respiratory Rate Blood Pressure Pulse Oximetry Oxygen Delivery Room
[2023-08-23] MEDS: LOPERAMIDE HCL 2 MG CAPSULE 4 MG PO (13:37)
[2023-08-23] MEDS: IBUPROFEN 600 MG TABLET PO ×2 (13:37→16:59)
[2023-08-24] VITALS: PULSE 76
[2023-08-24 04:00] VITALS: PULSE 89
[2023-08-24 04:27] VITALS: BP 97/58; PULSE 90; RESP 18; TEMP 37; O2SAT 94
[2023-08-24 05:03] LABS: Basophils Percent Auto 0.8 % (0.2-1.2); Eosinophils Absolute Auto 0.3 K/mm3 (0-0.3); Eosinophils Percent Auto 8.6 % (0-4.4); Hematocrit 30.4 % (42.0-52.0); Immature Granulocyte Absolute 0.01 K/mm3 (0.00-0.031); Immature Granulocyte Percent A 0.3 % (0-0.5); Lymphocytes Absolute Auto 1.48 K/mm3 (0.9-3.2); Lymphocytes Percent Auto 38.4 % (18.3-44.2); Mean Corpuscular HGB Conc 32.9 g/dl (32-36); Mean Corpuscular Hemoglobin 31.6 pg (26-34); Mean Corpuscular Volume 96.2 fl (80-100); Mean Platelet Volume 9.9 fl (7.4-10.4); Monocytes Absolute Auto 0.5 K/mm3 (0.1-0.6); Monocytes Percent Auto 12.2 % (2.6-8.5); Neutrophils Absolute Auto 1.5 K/mm3 (1.3-6.7); Neutrophils Percent Auto 39.7 % (45.5-73.1); Platelet Count Result 156 k/mm3 (150-375); Red Blood Count 3.16 M/mm3 (4.6-6.20); Red Cell Distribution Width 13.2 % (11.5-14.5); White Blood Count 3.9 K/mm3 (4.5-10.0)
[2023-08-24 05:07] LABS: Alanine Aminotransferase 14 U/L (6-50); Albumin Level 2.8 g/dL (3.5-5.1); Alkaline Phosphatase 55 U/L (38-126); Anion Gap 4 mmol/L (4-12); Aspartate Amino Transferase 29 U/L (17-59); Bilirubin,Total 0.5 mg/dL (0.2-1.3); Blood Urea Nitrogen 6 mg/dL (9-20); Calcium 9.2 mg/dL (8.4-10.2); Carbon Dioxide 25 mmol/L (22-30); Chloride 106 mmol/L (98-107); Estimated CRCL calculation 74 ml/min; Estimated Glomerular Filt Rate > 60; Glucose 91 mg/dL (65-110); Magnesium 1.2 mg/dL (1.6-2.3); Potassium 3.7 mmol/L (3.4-5.0); Sodium 135 mmol/L (137-145)
--- NOTE | 2023-08-24 07:35 | PM.IMPN ---
Progress Note: A&P Assessment and Plan (1) Nausea & vomiting: Code(s): R11.2 - Nausea with vomiting, unspecified Status: Acute (2) Severe protein-calorie malnutrition: Code(s): E43 - Unspecified severe protein-calorie malnutrition Status: Acute (3) Enteritis: Code(s): K52.9 - Noninfective gastroenteritis and colitis, unspecified Status: Acute Time Spent With Patient Time with patient: 25 - 35 minutes Subjective Date/time seen: 08/24/23 07:35 Interval history: Labs today reveal a WBC 3.9, Hgb 10.0, Na+ 135, magnesium 1.2. E coli, C diff, and Campylobacter antigen were negative. Salmonella is still pending. Review of Systems Review of Systems: All systems reviewed & are unremarkable except as noted in HPI and below Constitutional: Constitutional: Reports as per HPI and Reports no additional constitutional complaints Eyes: Eyes: Reports as per HPI and Reports no additional eye complaints ENT: Reports system reviewed and no additional complaints, except as documented and Reports as per HPI Cardiovascular: Cardiovascular: Reports as per HPI and Reports no additional cardiovascular complaints Respiratory: Respiratory: Reports as per HPI and Reports no additional respiratory complaints Gastrointestinal: Gastrointestinal: Reports as per HPI and Reports no additional gastrointestinal complaints Genitourinary: Genitourinary: Reports no additional male genitourinary complaints and Reports as per HPI Musculoskeletal: Musculoskeletal: Reports no additional musculoskeletal complaints and Reports as per HPI Integumentary/Breasts: Skin/Breast: Reports system reviewed and no additional complaints, except as docu and Reports as per HPI Exam Narrative: General: In no acute distress, well nourished Head: atraumatic, no encephalopathy Eyes: EOMI, PERRLA, sclera clear ENT: moist mucous membranes, nasal passages clear Neck: supple, no JVD, no adenopathy, trachea midline Cardiac: Normal S1 and S2. RRR, No murmur, gallops or friction rubs, peripheral pulses intact. Respiratory: Lungs clear to auscultation, no adventitious lung sounds, currently on room air Gastrointestinal: soft, non-distended, non-tender, normoactive bowel sounds. : voiding without difficulty. Extremities: moves all extremities well, no edema, reports ankle pain Skin: clean, dry, intact. No wounds or lesions. Neuro: Alert and oriented x4, cranial nerves intact, no neuro deficits. Psych: normal mood, normal affect, interactive Objective Data Vital Signs Vital Signs: Vital Signs - 24 hr 08/23/23 08:01 08/23/23 12:04 08/23/23 14:56 Temperature 98.1 F Pulse Rate 83 88 80 Respiratory Rate 18 Blood Pressure 118/76 Pulse Oximetry 100 Oxygen Delivery 08/23/23 16:01 08/23/23 19:38 08/23/23 22:12 Temperature 98.3 F Pulse Rate 77 76 Respiratory Rate 17 Blood Pressure 107/69 Pulse Oximetry 99 Oxygen Delivery Room Air 08/23/23 20:00 08/24/23 00:00 08/24/23 04:00 Temperature Pulse Rate 80 76 89 Respiratory Rate Blood Pressure Pulse Oximetry Oxygen Delivery 08/24/23 04:27 Temperature 98.6 F Pulse Rate 90 Respiratory Rate 18 Blood Pressure 97/58 L Pulse Oximetry 94 Oxygen Delivery Intake/Output Intake/Output: Intake & Output 08/21/23 08/22/23 08/23/23 08/24/23 23:59 23:59 23:59 23:59 Intake Total 2249.2 3795.8 3164.2 150 Output Total 1100 2565 1150 Balance 2249.2 2695.8 599.2 -1000 Meds/Results Medications: Active Medications Generic Name Dose Route Start Last Admin Trade Name Freq PRN Reason Stop Dose Admin Acetaminophen 500 mg 08/23/23 10:32 Acetaminophen 500 Mg Tablet PO Q6H PRN Pain (Scale Score 1-3) Hydrocodone Bitart/Acetaminophen 1 tab 08/22/23 01:10 08/22/23 20:50 Hydrocodone/Acetaminophen (*Crx) 5-325 Mg Tablet PO 1 tab Q4H PRN Administration Pain Rated 4-6 Ibuprofen 600 mg 08/23/23 13:00 08/23/23
[2023-08-24 08:00] VITALS: PULSE 93
[2023-08-24] MEDS: IBUPROFEN 600 MG TABLET PO ×2 (08:22→12:38)
[2023-08-24] MEDS: MAGNESIUM SULF 4 GM/WATER100ML 4 GM/100 ML BAG IVPB (08:22)
[2023-08-24] MEDS: SERTRALINE HCL 50 MG TABLET PO (08:22)
[2023-08-24 12:00] VITALS: PULSE 82
--- NOTE | 2023-08-24 12:28 | PM.DS ---
DS: Admitting Diagnosis Discharge Date 08/24/23 Admitting Diagnosis Nausea vomiting Severe protein calorie malnutrition Enteritis DS: Summary Hospital Course Reason for hospitalization: Nausea vomiting Severe protein calorie malnutrition Enteritis Hospital Course: This is for 53-year-old male who presented to the hospital on 08/22/2023 with complaints of nausea, vomiting, diarrhea. 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 He also was reporting ankle pain on the right after a twisting injury. X-ray of his ago was negative for any fracture or malalignment. Chest x-ray was negative for any acute acute cardiopulmonary process. Patient was given IV fluids and Imodium. Stool culture was obtained and currently negative for E coli, C diff, campylobactor antigen. Salmonella is still pending. Patient denies any new complaints today. He is feeling better. Labs today showed a white blood cell count of 3.9, hemoglobin 10.0, sodium 135, magnesium 1.2. He was given 4 g of Mag today. He is stable for discharge at this time. He will need to follow up with his primary care doctor in 1 week. Final diagnosis: Enteritis, dehydration, severe protein calorie malnutrition Status at Discharge Cognitive/behavioral status at discharge: Alert oriented x4 Functional status at discharge: independent ambulation Overall status at discharge: patient is progressing back to baseline Time Spent with Patient Time attestation: Total time spent providing and/or coordinating discharge services: Time spent: Greater than 30 minutes Exam Narrative: General: In no acute distress, well nourished Head: atraumatic, no encephalopathy Eyes: EOMI, PERRLA, sclera clear ENT: moist mucous membranes, nasal passages clear Neck: supple, no JVD, no adenopathy, trachea midline Cardiac: Normal S1 and S2. No murmur, gallops or friction rubs, peripheral pulses intact. Respiratory: Lungs clear to auscultation, no adventitious lung sounds, currently room air Gastrointestinal: soft, non-distended, non-tender, normoactive bowel sounds. : voiding without difficulty. Extremities: moves all extremities well, no edema, good ROM, strength 5/5 Skin: clean, dry, intact. No wounds or lesions. Neuro: Alert and oriented x4, cranial nerves intact, no neuro deficits. Psych: normal mood, normal affect, interactive DS: Data Data Completed and Pending Completed studies during hospitalization: Chest x-ray Ankle x-ray Pending studies at discharge: Stool culture Labs on day of discharge: Labs from last 24 hours 08/24/23 04:24 WBC 3.9 L RBC 3.16 L Hgb 10.0 L Hct 30.4 L MCV 96.2 MCH 31.6 MCHC 32.9 RDW 13.2 Plt Count 156 MPV 9.9 Immature Gran % (Auto) 0.3 Neut % (Auto) 39.7 L Lymph % (Auto) 38.4 Williamson % (Auto) 12.2 H Eos % (Auto) 8.6 H Baso % (Auto) 0.8 Lymph # (Auto) 1.48 Williamson # (Auto) 0.5 Eos # (Auto) 0.3 Baso # (Auto) 0.0 Abs Immat Gran (auto) 0.01 Absolute Neuts (auto) 1.5 Absolute Nucleated RBC 0.000 Nucleated RBC % 0.0 Sodium 135 L Potassium 3.7 Chloride 106 Carbon Dioxide 25 Anion Gap 4 BUN 6 L Creatinine 0.80 Estim Creat Clear Calc 74 Estimated GFR > 60 Glucose 91 Calcium 9.2 Magnesium 1.2 L Total Bilirubin 0.5 AST 29 ALT 14 Alkaline Phosphatase 55 Total Protein 6.0 L Albumin 2.8 L Procedures/Treatments: None Discharge Plan Discharge Attending physician on discharge: Deniz Valladares Consulting providers: Sweetie Espinosa Discharging Clinician: Mary Jane Gonzalez Anticipated Discharge Date/Time: 08/24/23 12:23 Patient Disposition: Home, Self-Care Activity: as tolerated Diet: as tolerated Patient Instructions: How to Stop Smoking (DC), Dehydration (DC), Malnutrition (DC), Pain Management (DC), Enteritis (DC) Patient Language: Barbadian Stand Alone Forms: General Discharge Information
[2023-08-24] MEDS: oxyCODONE HCL (*CRX) 5 MG TAB IR PO (14:48)
== END 2023-08-24 15:15 | disposition home health service (06) ==
LOC: ANHED 16:39 → ANH2MED 08-22 02:37
PROVIDERS: Internal Medicine; Nurse Practitioner Acute Care; Admitting Provider Internal Medicine; Emergency Provider Physician Assistant; PCP Emergency Medicine; Visit Provider Internal Medicine
DX: K52.9 Noninfective gastroenteritis and colitis, unspecified (principal); N17.9 Acute kidney failure, unspecified; E86.0 Dehydration; R11.2 Nausea with vomiting, unspecified; E43 Unspecified severe protein-calorie malnutrition; S99.911A Unspecified injury of right ankle, initial encounter; X50.0XXA Overexertion from strenuous movement or load, initial encounter; M54.9 Dorsalgia, unspecified; G89.29 Other chronic pain; I12.9 Hypertensive chronic kidney disease with stage 1 through stage 4 chronic kidney disease, or unspecified chronic kidney disease; N18.30 Chronic kidney disease, stage 3 unspecified; E78.2 Mixed hyperlipidemia; F17.210 Nicotine dependence, cigarettes, uncomplicated; F12.90 Cannabis use, unspecified, uncomplicated; Z85.528 Personal history of other malignant neoplasm of kidney; Z90.5 Acquired absence of kidney; Z20.822 Contact with and (suspected) exposure to COVID-19; E16.2 Hypoglycemia, unspecified; Z68.20 Body mass index [BMI] 20.0-20.9, adult
CPT/HCPCS: 36415; 71045; 73610; 80053; 81003; 82948; 83690; 83735; 84484; 85025; 87045; 87427; 87449; 87493; 87637; 93005; 96361; 96365; 96366; 96368; 97165; 97530; 99285; A9270; G0378; G0379; J3475; J7030

== ENCOUNTER 2023-09-03 12:14 | Observation (INO) | payer OTHER, SELFPAY ==
[2023-09-03] VITALS (56 sets, daily range): BP systolic 98–141; BP diastolic 57–104; PULSE 94–114; RESP 13–32; TEMP 36.2–37.6; O2SAT 74–100
--- NOTE | ~2023-09-03 | CT_ITS ---
Non-contrast Head CT History: Intermittent hearing issue COMPARISON: 08/29/2022 Technique: Axial non-contrast imaging of the brain was performed. Dose reduction technique was used on this scan by utilizing automated exposure control and iterative reconstruction technique. The dose -length product (DLP) was 605.33 mGy-cm. Findings: There is no evidence of intracranial hemorrhage, mass lesion, or acute infarct. Focal hypo density in the high right parietal lobe noted. The ventricles and subarachnoid spaces are normal in size. Prior right parietal craniotomy noted. The visualized paranasal sinuses and mastoid air cells are clear. Impression: Focal hyperdensity in the high right parietal lobe with interval craniotomy. This could reflect posts urgical encephalomalacia versus small amount of residual vasogenic edema. Previously noted mass lesio n is essentially completely resolved, though small residual mass is difficult to completely exclude b y CT imaging. Consider pre and postcontrast MR to evaluate for any small residual/recurrent mass lesi on. Right parietal craniotomy noted. Reviewed, dictated and finalized at location M. Impression: Focal hyperdensity in the high right parietal lobe with interval craniotomy. Th is could reflect postsurgical encephalomalacia versus small amount of residual vasogenic edema. Previously noted mass lesion is essentially completely resolve d, though small residual mass is difficult to completely exclude by CT imaging. Consider pre and postcontrast MR to evaluate for any small residual/recurrent mass lesion. Right parietal craniotomy noted.
--- NOTE | 2023-09-03 13:38 | ECG_ITS ---
[facility] [address] Test Date: 2023-09-03 Pat Name: Juan Valencia Department: Room: Gender: M [employer] Department Supervisor: : 1970 Requested By: Louis Olmedo Order Number: [id number] Genesis MD: Deng Keller M.D. Measurements Intervals [place] Rate: 98 P: 82 CO: 186 QRS: -60 QRSD: 105 T: 96 QT: 353 QTc: 453 Interpretive Statements SINUS RHYTHM POSSIBLE RIGHT ATRIAL ENLARGEMENT [0.25mV P WAVE] POSSIBLE LEFT ATRIAL ENLARGEMENT [-0.1mV P WAVE IN V1/V2] MARKED LEFT AXIS DEVIATION [QRS AXIS < -30] SEPTAL MYOCARDIAL INFARCTION , OF INDETERMINATE AGE [40+ ms Q WAVE IN V1/V2] PREVIOUS ANTERIOR WALL WI NONSPECIFIC T-WAVE ABNORMALITY ABNORMAL ECG No previous ECG available for comparison Electronically Signed On 09-03-2023 15:00:59 CDT by Deng Keller M.D.
[2023-09-03] MEDS: SODIUM CHLORIDE 0.9% IV 1,000 ML 999 ML IV CONT (13:58)
[2023-09-03 14:05] LABS: Basophils Percent Auto 0.5 % (0.2-1.2); Eosinophils Absolute Auto 0.4 K/mm3 (0-0.3); Eosinophils Percent Auto 4.4 % (0-4.4); Hematocrit 44.7 % (42.0-52.0); Hemoglobin 14.3 g/dL (14.0-18.0); Immature Granulocyte Absolute 0.02 K/mm3 (0.00-0.031); Immature Granulocyte Percent A 0.3 % (0-0.5); Lymphocytes Absolute Auto 2.33 K/mm3 (0.9-3.2); Lymphocytes Percent Auto 29.2 % (18.3-44.2); Mean Corpuscular Hemoglobin 31.4 pg (26-34); Mean Platelet Volume 9.6 fl (7.4-10.4); Monocytes Absolute Auto 1.1 K/mm3 (0.1-0.6); Monocytes Percent Auto 13.5 % (2.6-8.5); Neutrophils Absolute Auto 4.2 K/mm3 (1.3-6.7); Neutrophils Percent Auto 52.1 % (45.5-73.1); Platelet Count Result 179 k/mm3 (150-375); Red Blood Count 4.56 M/mm3 (4.6-6.20); Red Cell Distribution Width 13.7 % (11.5-14.5)
[2023-09-03 14:23] LABS: Alanine Aminotransferase 22 U/L (6-50); Albumin Level 4.3 g/dL (3.5-5.1); Alkaline Phosphatase 91 U/L (38-126); Anion Gap 16 mmol/L (4-12); Aspartate Amino Transferase 55 U/L (17-59); Bilirubin,Total 0.6 mg/dL (0.2-1.3); Blood Urea Nitrogen 21 mg/dL (9-20); Calcium 12.6 mg/dL (8.4-10.2); Carbon Dioxide 21 mmol/L (22-30); Chloride 101 mmol/L (98-107); Estimated CRCL calculation 49 ml/min; Estimated Glomerular Filt Rate > 60; Glucose 39 mg/dL (65-110); Lipase 31 U/L (23-300); Potassium 4.3 mmol/L (3.4-5.0); Sodium 138 mmol/L (137-145)
[2023-09-03] MEDS: DEXTROSE 50% 25 GM/50 ML SYRINGE IV PUSH ×2 (14:32→21:26)
[2023-09-03] MEDS: SODIUM CHLORIDE 0.9% IV 1,000 ML 999 ML (14:34)
[2023-09-03 14:44] LABS: INR 1.2
[2023-09-03 14:45] LABS: Partial Thromboplastin Time 50.1 Seconds (22.3-36.8)
[2023-09-03 14:50] LABS: Troponin I < 0.012 ng/mL (0.000-0.034)
[2023-09-03 14:56] LABS: Glucose Point of Care 128 mg/dl (65-105)
--- NOTE | 2023-09-03 15:02 | PC.NURSE ---
Repeat blood glucose after treatment is 128
[2023-09-03 17:16] LABS: Appearance Urine Clear (Clear); Bacteria Urine None Seen /hpf; Bilirubin Urine Negative (Negative); Blood Urine Negative (Negative); Color Urine Yellow (Yellow); Glucose Urine UA Trace mg/dL (Negative); Ketones Urine 3+ mg/dL (Negative); Leukocyte Esterase Ur Negative LEU/UL (Negative); Need Manual Microscopic Reviewed; Nitrate Urine Negative (Negative); Protein Urine Trace mg/dL (Negative); RBC Urine 0-2 /hpf (0-2); Specific Grav Ur 1.016 (1.001-1.035); Squamous Epithelial Cell Urine None Seen /hpf (Few); Urobilinogen Urine 0.2 mg/dL (<2.0); WBC Urine 0-5 /hpf (0-3)
[2023-09-03 17:17] LABS: Add Urine Microscopic? YES
--- NOTE | 2023-09-03 17:43 | ED.GENADULT ---
HPI - General Adult General Chief complaint: Unspecified Stated complaint: not eating or drinking Time Seen by Provider: 09/03/23 13:11 History of Present Illness HPI narrative: Patient is a 53-year-old male with history of metastatic bladder cancer who presents ER with weakness. He has not been eating over the last week. reports that she can barely get him to take his medicine. Has no complaints of pain. He does report just overall fatigue/ weakness. No fevers or chills or sweats. He has been without chemo treatment for many weeks due to the fact that he had a pericardial effusion. He gets his care at [facility]. reports patient had some difficulty hearing out of his right ear last weekend which concerned her as well since he has history of having a mass removed from the area many years ago. No headaches at this time. Related Data Home Medications Medication Instructions Recorded Confirmed oxycodone 5 mg tablet 5 mg PO Q6H PRN Pain (Scale Score 07/22/23 08/22/23 7-10) tadalafil 20 mg tablet 20 mg PO DAILY PRN Erectile 07/22/23 08/22/23 Dysfunction acetaminophen 500 mg tablet 500 mg PO Q6H PRN Pain (Scale 07/23/23 08/22/23 Score 1-3) Allergies Allergy/AdvReac Type Severity Reaction Status Date / Time colchicine Allergy Severe Rash Verified 08/13/23 10:31 prednisone AdvReac Severe Shakiness Verified 08/13/23 10:31 Review of Systems Review of Systems: All systems reviewed & are unremarkable except as noted in HPI and below Constitutional: Constitutional: Reports anorexia, Reports malaise, Reports weakness and Reports weight loss ENT: Reports system reviewed and no additional complaints, except as documented Cardiovascular: Cardiovascular: Reports no additional cardiovascular complaints Respiratory: Respiratory: Reports no additional respiratory complaints Genitourinary: Genitourinary: Reports no additional male genitourinary complaints [facility] Past Medical History Medical History Bladder tumor Brain tumor CKD (chronic kidney disease), stage III Essential hypertension Fatigue HLD (hyperlipidemia) Hyperglycemia Hypertension Mixed hyperlipidemia Renal cell cancer Surgical History Surgical History H/O brain surgery H/O transurethral resection of bladder tumor (TURBT) History of nephrectomy Hx of tonsillectomy Family History Family History (Updated 08/22/23 @ 02:41 by Ginny Galvan RN) Sibling MVC (motor vehicle collision) Father Choked on food Mother Diabetes mellitus Social History Social History Social History: spent 3 years in nursing home Smoking packs per day: 1 Smoking cigarettes per day: 20.0 Years smoked: 20 Smoking pack-years: 20.00 Smoking status: Current every day smoker Tobacco type: cigarettes Second hand tobacco smoke exposure: Yes Alcohol intake: never Substance use: current Substance use type: marijuana Other substance usage details: Smoker and uses edibles Do You Feel Safe in your Home?: Yes Lack of Transportation: No Lack of Food: Never True Current Housing: I Have Housing Concerned About Future Housing: YES Difficulty Paying Gas/Electric Bills: YES Difficulty Paying for Meds: YES Currently Unemployed: No Education: Grade School Difficulty w/ Childcare or Family Care: No Living arrangements: with family Additional living arrangements comments: lives with Elena Occupation/Education: other Additional occupation/education comments: 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 HEAD: Normocephalic, atraumatic. ENT: Mucous memb
[2023-09-03 18:39] LABS: Troponin I < 0.012 ng/mL (0.000-0.034)
[2023-09-03] MEDS: SODIUM CHLORIDE 0.9% IV 1,000 ML 125 ML IV CONT (20:20)
--- NOTE | 2023-09-03 20:37 | PM.IMHP ---
H&P: HPI History of Present Illness Date/Time: 09/03/23 20:37 Chief Complaint: Nausea vomiting, not eating Narrative: Unfortunate 53-year-old male with a past medical history of bladder cancer (2018), renal cell carcinoma (left nephrectomy 07/2018) with metastases to brain, bone and lungs, resection of brain tumor in August 2022, mixed hyperlipidemia, acute pericarditis July 2023 and associated protein calorie malnutrition who presented to the ER via private vehicle with family due to not eating or drinking due to vomiting. The patient was acutely hypoglycemic during my evaluation and was not able to provide much history due to encephalopathy. He was acutely diaphoretic. He reports that his stools are intermittently diarrheal. His stools over the last 24 hours have become more formed than they had been earlier in the week. He denies any hematochezia or melena. He reports that his emesis was light green in color. He is also having dry heaves. He reports that no food tastes good. He has not been taking any of his medications because he does not want to just vomited them back up. He has not had any fevers or chills. He has generally poor appetite. Patient is alert oriented to person place and month but repetitively stated that the year was 2003. Thus the majority of the history was obtained from review of past medical records, ER physician report and nursing report. Review of Systems Review of Systems: Review of systems limited as the patient was encephalopathic with hypoglycemia at the time of my evaluation. [facility] Past Medical History Medical History (Updated 09/04/23 @ 02:05 by Lani Patton, ) CKD (chronic kidney disease), stage III With baseline creatinine 0.8-1 Essential hypertension HLD (hyperlipidemia) Hypertension Metastatic renal cell carcinoma to brain Treated with partial resection and radiation therapy August and September 2022 Mixed hyperlipidemia Renal cell cancer Clear type (small cell) initial nephrectomy 2018 lost to follow-up then with recurrence found May 2021 with bladder mass some bilateral pulmonary nodules. 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 treated with BJC therapy with repeat TURBT 08/2021 with multiple tumors noted with brain mass noted August 2022 with pathology confirming metastatic renal cell carcinoma With metastases to bone lung and brain status post craniotomy August 2022 Transitional cell bladder cancer (~2019) Treated with resection and BCG Surgical History Surgical History (Updated 09/03/23 @ 20:52 by Lani Patton DO) H/O brain surgery (~08/2022) H/O transurethral resection of bladder tumor (TURBT) History of left radical nephrectomy (07/2018) Hx of tonsillectomy Family History Family History Sibling MVC (motor vehicle collision) Father Choked on food Mother Diabetes mellitus Social History Social History (Updated 09/04/23 @ 01:57 by Lani Patton DO) Social History: Code status: Full code Surrogate decision maker: Elena () Smoking packs per day: 1 Smoking cigarettes per day: 20.0 Years smoked: 20 Smoking pack-years: 20.00 Smoking status: Current some day smoker Tobacco type: cigarettes Second hand tobacco smoke exposure: Yes Additional smoking assessment comments: states once in a blue mchugh Alcohol intake: never Substance use: current Substance use type: marijuana Other substance usage details: Smoker and uses edibles Do You Feel Safe in your Home?: Yes Lack of Transportation: No Lack of Food: Never True Current Housing: I Have Housing Concerned About Future Housing: YES Difficulty Paying Gas/Electric Bills: YES Difficulty Paying for Meds: No Currently Unemployed: No Education: Grade School Difficulty w/ Childcare or Family Care: No Living arrangements: with
--- NOTE | 2023-09-03 21:18 | ADMGEN ---
This patient, Juan Valencia, was admitted to IMU Room 206-02. Patient/family oriented to hospital policies and general routines including ID bracelet, bed and alarms, visiting hours, pain management, procedures, bathroom and other care routines, personal items, smoking policy, room service/diet, and visiting hours. Information on how to activate the Rapid Response Team has been discussed. Patient/Family are encouraged to report perceived risks to care and to ask questions if they do not understand what they are told or what they should do.
[2023-09-03 21:25] LABS: Glucose Point of Care 40 mg/dl (65-105)
[2023-09-03] MEDS: SODIUM BICARBONATE 8.4% 100 MEQ in WATER, STERILE FOR INJECTION 1,000 ML 125 MEQ IV CONT (22:30)
[2023-09-03 23:28] LABS: Glucose Point of Care 113 mg/dl (65-105)
[2023-09-04] VITALS (17 sets, daily range): BP systolic 101–124; BP diastolic 60–82; PULSE 90–104; RESP 18–20; TEMP 36.3–37.6; O2SAT 96–100; BMI 18.3
[2023-09-04 00:48] LABS: Glucose Point of Care 153 mg/dl (65-105)
[2023-09-04 00:52] LABS: Glucose Point of Care 86 mg/dl (65-105)
[2023-09-04] MEDS: DEXTROSE 10% 1,000 ML 100 ML IV CONT ×2 (01:55→15:36)
[2023-09-04 03:07] LABS: Glucose Point of Care 118 mg/dl (65-105)
[2023-09-04 05:08] LABS: Hematocrit 36.5 % (42.0-52.0); Hemoglobin 11.8 g/dL (14.0-18.0); Mean Corpuscular HGB Conc 32.3 g/dl (32-36); Mean Corpuscular Volume 95.8 fl (80-100); Mean Platelet Volume 9.6 fl (7.4-10.4); Platelet Count Result 148 k/mm3 (150-375); Red Blood Count 3.81 M/mm3 (4.6-6.20); Red Cell Distribution Width 13.8 % (11.5-14.5); White Blood Count 4.5 K/mm3 (4.5-10.0)
[2023-09-04 05:23] LABS: Lactic Acid Reflex 0.8 mmol/L (0.7-2.0)
[2023-09-04 05:26] LABS: Alanine Aminotransferase 17 U/L (6-50); Alkaline Phosphatase 84 U/L (38-126); Anion Gap 9 mmol/L (4-12); Aspartate Amino Transferase 41 U/L (17-59); Bilirubin,Total 0.5 mg/dL (0.2-1.3); Blood Urea Nitrogen 14 mg/dL (9-20); Calcium 11.6 mg/dL (8.4-10.2); Carbon Dioxide 21 mmol/L (22-30); Chloride 106 mmol/L (98-107); Estimated CRCL calculation 74 ml/min; Estimated Glomerular Filt Rate > 60; Glucose 142 mg/dL (65-110); Potassium 3.7 mmol/L (3.4-5.0); Sodium 136 mmol/L (137-145)
[2023-09-04 05:39] LABS: Glucose Point of Care 146 mg/dl (65-105)
--- NOTE | 2023-09-04 06:00 | ECHO_ITS ---
Patient Info Name: Juan Valencia Age: 53 years : 1970 Gender: Male Ht: 69 in Wt: 119 lbs BSA: 1.61 m2 HR: 101 bpm BP: 101 / 69 mmHg Heart Rhythm: Sinus Rhythm Technical Quality: Fair Exam Date: 09/04/2023 8:43 AM Exam Location: Echo Lab Patient Status: Outpatient Admit Date: 09/03/2023 Staff Ordering Physician: Louis Eaton MD [employer] Worker: Trudy Phan RDCS Attending Provider: Cristian Mike MD Referring Physician: Angelito OH; Exam Type: CA echo doppler color flow Study Info Indications R94.31 - Abnormal electrocardiogram ECG EKG Complete two-dimensional, color flow and Doppler transthoracic echocardiogram is performed. Summary 1. Left ventricular chamber dimension is normal. 2. Left ventricular systolic function is normal, estimated at 65-70%. 3. The left ventricular diastolic function is grade I diastolic dysfunction. 4. Right ventricular chamber dimension is mildly enlarged. 5. Right ventricular systolic function is normal. 6. Right atrial chamber dimension is mildly enlarged. 7. There is mild tricuspid valve regurgitation. Left Ventricle Left ventricular chamber dimension is normal. Left ventricular systolic function is normal, estimated at 65-70%. There is no increased left ventricular wall thickness. The left ventricular diastolic function is grade I diastolic dysfunction. Right Ventricle Right ventricular chamber dimension is mildly enlarged. Right ventricular systolic function is normal. Left Atria Left atrial chamber dimension is normal. Right Atria Right atrial chamber dimension is mildly enlarged. Atrial Septum Intact interatrial septum visualized by color flow imaging. Aortic Valve The aortic valve is trileaflet. There is mild aortic valve sclerosis. There is no aortic valve stenosis. There is no aortic valve regurgitation. Pulmonic Valve The pulmonic valve is not well visualized. There is no pulmonic regurgitation. Mitral Valve There is trace mitral valve regurgitation. Tricuspid Valve There is mild tricuspid valve regurgitation. Pericardium/Pleural There is no pericardial effusion. Inferior Vena Cava Normal inferior vena cava with >50% collapse upon inspiration consistent with normal right atrial pressure, 3 mmHg. Aorta The aortic root size at the sinus of Valsalva is normal. Left Ventricular Outflow Tract Name Value Normal LVOT 2D LVOT Diameter 1.9 cm LVOT Doppler LVOT Peak Gradient 5 mmHg LVOT Mean Gradient 2 mmHg LVOT VTI 16 cm LVOT VTI/AV VTI Ratio 0.9 LVOT Stroke Volume 44 ml LVOT CO 4.0 l/min LVOT CI 2.5 l/min/m2 Pulmonic Valve Name Value Normal RVOT Doppler RVOT Peak Gradient 2 mmHg PV Doppler
[2023-09-04 08:34] LABS: Glucose Point of Care 159 mg/dl (65-105)
[2023-09-04] MEDS: ENOXAPARIN 40 MG/0.4 ML SYRINGE SUB-Q (09:18)
[2023-09-04] MEDS: IBUPROFEN 600 MG TABLET PO ×3 (09:19→18:31)
[2023-09-04] MEDS: SERTRALINE HCL 50 MG TABLET PO (09:19)
[2023-09-04 10:13] LABS: Glucose Point of Care 187 mg/dl (65-105)
[2023-09-04] MEDS: ONDANSETRON INJ 4 MG/2 ML VIAL IV PUSH (10:30)
[2023-09-04 12:02] LABS: Glucose Point of Care 159 mg/dl (65-105)
--- NOTE | 2023-09-04 12:59 | PM.IMPN ---
Progress Note: A&P Assessment and Plan (1) Dehydration: Code(s): E86.0 - Dehydration Status: Acute (2) Hypoglycemia: Code(s): E16.2 - Hypoglycemia, unspecified Status: Acute (3) Hypercalcemia: Code(s): E83.52 - Hypercalcemia Status: Acute (4) Nausea & vomiting: Qualifiers: Vomiting type: unspecified Qualified Code(s): R11.2 - Nausea with vomiting, unspecified Code(s): R11.2 - Nausea with vomiting, unspecified Status: Acute (5) Severe protein-calorie malnutrition: Code(s): E43 - Unspecified severe protein-calorie malnutrition Status: Acute Plan # failure to thrive, severe protein calorie malnutrition -patient is doing poorly, poor p.o. intake, significant weight loss, temporal wasting -giving meal supplement Ensure t.i.d. (prefers vanilla) # hypoglycemia -treated with supportive care, corrected with the D10 -glucose stablized # chronic conditions -depression: Zoloft -bladder cancer 2018 -renal cell carcinoma left nephrectomy 07/2018 with metastasis to brain, bone, lungs. Was having chronic diarrhea from chemo on lomotil. pain control PRN oxycodone -hyperlipidemia -pericarditis from July 2023 related to chemotherapy. Chemo currently on hold Diet: Regular with no problem DVT prophylaxis: Lovenox Code status: Full code Disposition: Pending PT evaluation Time Spent With Patient Time: 35 minutes Subjective Date/time seen: 09/04/23 12:59 Interval history: Patient seen and examined. He is doing well no new complaints. He was admitted yesterday evening for failure to thrive. No overnight events. Presented with hypoglycemia which has improved. Patient will undergo PT OT supportive care for his malnutrition. He denies fever, chills, nausea vomiting, diarrhea. He endorses generalized weakness. Review of Systems Review of Systems: 10 point ROS complete, negative other than what is specified in HPI. Exam Narrative: - GENERAL: Pleasant frail chronically ill-appearing male in no acute distress. Well-nourished. - EYES: EOMI. Anicteric. - HENT: Moist mucous membranes. - LUNGS: Clear to auscultation bilaterally, no wheezing, rhonchi, or rales. - CARDIOVASCULAR: Regular rate and rhythm. No murmur. No JVD. - ABDOMEN: Soft, non-tender and non-distended. No palpable masses. - EXTREMITIES: No edema. Peripheral pulses 2+. Non-tender. - NEUROLOGIC: No focal neurological deficits. CN II-XII grossly intact. Appears lethargic - PSYCHIATRIC: Awake, Alert and oriented x 3. Appropriate mood and affect. - SKIN: No rashes or lesions. Warm. - LYMPH: No cervical lymphadenopathy. Objective Data Vital Signs Vital Signs: Vital Signs - 24 hr 09/03/23 13:12 09/03/23 13:15 09/03/23 13:16 Temperature Pulse Rate 112 H 102 H 102 H Respiratory Rate 21 H 30 H 30 H Blood Pressure 102/65 Pulse Oximetry 74 L Oxygen Delivery 09/03/23 13:30 09/03/23 13:31 09/03/23 13:52 Temperature Pulse Rate 100 100 103 H Respiratory Rate 30 H 30 H 24 H Blood Pressure 102/71 Pulse Oximetry 99 99 100 Oxygen Delivery 09/03/23 13:59 09/03/23 14:00 09/03/23 14:01 Temperature Pulse Rate 102 H 101 H 97 Respiratory Rate 29 H 27 H 25 H Blood Pressure 111/78 112/78 Pulse Oximetry 100 100 100 Oxygen Delivery 09/03/23 14:15 09/03/23 14:16 09/03/23 14:30 Temperature Pulse Rate 96 96 96 Respiratory Rate 22 H 23 H 16 Blood Pressure 120/84 Pulse Oximetry 100 100 100 Oxygen Delivery 09/03/23 14:32 09/03/23 14:46 09/03/23 15:01 Temperature Pulse Rate 97 96 95 Respiratory Rate 23 H 21 H 16 Blood Pressure 124/92 H 113/79 120/81 Pulse Oximetry 99 100 100 Oxygen Delivery 09/03/23 15:16 09/03/23 15:31 09/03/23 15:46 Temperature Pulse Rate 97 94 100 Respiratory Rate 19 20 15 Blood Pressure 115/81 124/86 125/86 Pulse Oximetry 100 100 100 Oxygen Delivery 09/03/23 16:01 09/03/23 16:16
--- NOTE | 2023-09-04 13:33 | PCPTNOTE ---
Attempted PT evaluation, pt refused stating he was too tired to participate. RN aware. Will follow.
[2023-09-04] MEDS: DIPHENOXYLATE/ATROPINE (*CRX) 2.5 MG TABLET 1 TABLET PO (15:38)
[2023-09-04] MEDS: oxyCODONE HCL (*CRX) 5 MG TAB IR PO (15:44)
[2023-09-04 16:00] LABS: Glucose Point of Care 147 mg/dl (65-105)
[2023-09-04 17:42] LABS: Glucose Point of Care 134 mg/dl (65-105)
[2023-09-04 21:20] LABS: Glucose Point of Care 122 mg/dl (65-105)
[2023-09-05] VITALS (8 sets, daily range): BP systolic 99–126; BP diastolic 65–80; PULSE 83–101; RESP 13–20; TEMP 36.3–37.2; O2SAT 95–97
--- NOTE | 2023-09-05 01:12 | PC.NURSE ---
This patient, Juan Valencia, was transferred to [ [facility]] on 09/05/23 at 0112. Personal belongings sent with patient. Report given to [Francisco rn ]. Appropriate documentation sent with patient.
--- NOTE | 2023-09-05 01:32 | PC.NURSE ---
0108 Patient arrived to this floor at this time as a transfer from IMU. I assume care of this patient at this time and agree with previous nurse assessment.
[2023-09-05 07:30] LABS: Glucose Point of Care 97 mg/dl (65-105)
[2023-09-05] MEDS: ENOXAPARIN 40 MG/0.4 ML SYRINGE SUB-Q (08:30)
[2023-09-05] MEDS: IBUPROFEN 600 MG TABLET PO ×3 (08:31→16:44)
[2023-09-05] MEDS: SERTRALINE HCL 50 MG TABLET PO (08:31)
--- NOTE | 2023-09-05 09:37 | PM.IMPN ---
Progress Note: A&P Assessment and Plan (1) Hypoglycemia: Code(s): E16.2 - Hypoglycemia, unspecified Status: Acute (2) Hypercalcemia: Code(s): E83.52 - Hypercalcemia Status: Acute (3) Dehydration: Code(s): E86.0 - Dehydration Status: Acute (4) Abnormal ECG: Code(s): R94.31 - Abnormal electrocardiogram [ECG] [EKG] Status: Acute (5) Chronic diarrhea: Code(s): K52.9 - Noninfective gastroenteritis and colitis, unspecified Status: Acute (6) Nausea & vomiting: Qualifiers: Vomiting type: unspecified Qualified Code(s): R11.2 - Nausea with vomiting, unspecified Code(s): R11.2 - Nausea with vomiting, unspecified Status: Acute (7) Hypoglycemia: Code(s): E16.2 - Hypoglycemia, unspecified Status: Acute Plan # failure to thrive, severe protein calorie malnutrition # hypoglycemia, resolved -patient is doing poorly, poor p.o. intake, significant weight loss, temporal wasting -giving meal supplement Ensure t.i.d. (prefers vanilla) - looking for placement - will need outpatient palliative care -treated with supportive care, glucose normalized after treating with D10. now off D10 drip # chronic conditions -depression: Zoloft -bladder cancer 2018 -renal cell carcinoma left nephrectomy 07/2018 with metastasis to brain, bone, lungs. Was having chronic diarrhea from chemo on lomotil. pain control PRN oxycodone -hyperlipidemia -pericarditis from July 2023 related to chemotherapy. Chemo currently on hold Diet: Regular, supplements DVT prophylaxis: Lovenox Code status: Full code Disposition: Pending PT evaluation Time Spent With Patient Time: 35 minutes Subjective Date/time seen: 09/05/23 09:37 Interval history: Patient seen and examined. His main concerns are diffuse pains in his neck and back. encouraged him to get out of bed, work with physical therapy. blood sugars appear to be stable off of the D10 fluids. will continue supportive care with meal supplements. appears his nausea vomiting diarrhea has improved. he denies fever, chills, nausea, vomiting, diarrhea. He endorses neck and back pain, malaise. Review of Systems Review of Systems: 10 point ROS complete, negative other than what is specified in HPI. Exam Narrative: - GENERAL: Pleasant frail chronically ill-appearing male in no acute distress - EYES: EOMI. Anicteric. - HENT: Moist mucous membranes. - LUNGS: Clear to auscultation bilaterally, no wheezing, rhonchi, or rales. - CARDIOVASCULAR: Regular rate and rhythm. No murmur. No JVD. - ABDOMEN: Soft, non-tender and non-distended. No palpable masses. - EXTREMITIES: No edema. Peripheral pulses 2+. Non-tender. - NEUROLOGIC: No focal neurological deficits. CN II-XII grossly intact. Appears lethargic ( unchanged from yesterday) - PSYCHIATRIC: Awake, Alert and oriented x 3. appears depressed - SKIN: No rashes or lesions. Warm. - LYMPH: No cervical lymphadenopathy. Objective Data Vital Signs Vital Signs: Vital Signs - 24 hr 09/04/23 11:22 09/04/23 12:06 09/04/23 15:41 Temperature 37.2 C 36.9 C Pulse Rate 100 93 Respiratory Rate 20 18 Blood Pressure 115/71 105/69 Pulse Oximetry 97 100 Oxygen Delivery Room Air 09/04/23 10:00 09/04/23 12:00 09/04/23 12:00 Temperature Pulse Rate 90 93 Respiratory Rate Blood Pressure Pulse Oximetry Oxygen Delivery Room Air 09/04/23 14:00 09/04/23 16:00 09/04/23 16:00 Temperature Pulse Rate 93 91 Respiratory Rate Blood Pressure Pulse Oximetry Oxygen Delivery Room Air 09/04/23 18:00 09/04/23 20:03 09/04/23 20:00 Temperature 36.3 C L Pulse Rate 91 94 94 Respiratory Rate 18 18 Blood Pressure 110/60 Pulse Oximetry 97 97 Oxygen Delivery Room Air 09/05/23 01:19 09/05/23 06:07 09/05/23 07:46 Temperature 37.2 C 37.0 C 36.6 C Pulse Rate 101 H 99 97 Respiratory Rate 14 13 20 Blood Pressure 12
[2023-09-05 11:39] LABS: Glucose Point of Care 108 mg/dl (65-105)
[2023-09-05 16:21] LABS: Glucose Point of Care 90 mg/dl (65-105)
[2023-09-06 00:58] LABS: Glucose Point of Care 100 mg/dl (65-105)
[2023-09-06 05:43] VITALS: BP 105/81; PULSE 88; RESP 13; TEMP 36.1; O2SAT 97
[2023-09-06 06:11] LABS: Hematocrit 34.8 % (42.0-52.0); Hemoglobin 11.3 g/dL (14.0-18.0); Mean Corpuscular HGB Conc 32.5 g/dl (32-36); Mean Corpuscular Volume 95.6 fl (80-100); Mean Platelet Volume 9.5 fl (7.4-10.4); Platelet Count Result 154 k/mm3 (150-375); Red Blood Count 3.64 M/mm3 (4.6-6.20); Red Cell Distribution Width 13.7 % (11.5-14.5); White Blood Count 3.9 K/mm3 (4.5-10.0)
[2023-09-06 06:38] LABS: Anion Gap 5 mmol/L (4-12); Blood Urea Nitrogen 12 mg/dL (9-20); Calcium 11.3 mg/dL (8.4-10.2); Carbon Dioxide 26 mmol/L (22-30); Chloride 103 mmol/L (98-107); Estimated CRCL calculation 83 ml/min; Estimated Glomerular Filt Rate > 60; Glucose 87 mg/dL (65-110); Potassium 3.6 mmol/L (3.4-5.0); Sodium 134 mmol/L (137-145)
[2023-09-06 07:39] LABS: Glucose Point of Care 78 mg/dl (65-105)
[2023-09-06] MEDS: DIPHENOXYLATE/ATROPINE (*CRX) 2.5 MG TABLET 1 TABLET PO (08:35)
[2023-09-06] MEDS: IBUPROFEN 600 MG TABLET PO (08:35)
[2023-09-06] MEDS: SERTRALINE HCL 50 MG TABLET PO (08:35)
[2023-09-06 11:26] LABS: Glucose Point of Care 85 mg/dl (65-105)
[2023-09-06 14:00] VITALS: BP 102/66; PULSE 96; RESP 18; TEMP 36.2; O2SAT 97
--- NOTE | 2023-09-06 15:00 | PM.DS ---
DS: Admitting Diagnosis Discharge Date 09/06/23 1500 Admitting Diagnosis failure to thrive and bladder cancer DS: Discharge Diagnosis Discharge Diagnosis (1) Hypoglycemia: Code(s): E16.2 - Hypoglycemia, unspecified Status: Acute (2) Hypercalcemia: Code(s): E83.52 - Hypercalcemia Status: Acute (3) Dehydration: Code(s): E86.0 - Dehydration Status: Acute (4) Abnormal ECG: Code(s): R94.31 - Abnormal electrocardiogram [ECG] [EKG] Status: Acute (5) Chronic diarrhea: Code(s): K52.9 - Noninfective gastroenteritis and colitis, unspecified Status: Acute (6) Nausea & vomiting: Qualifiers: Vomiting type: unspecified Qualified Code(s): R11.2 - Nausea with vomiting, unspecified Code(s): R11.2 - Nausea with vomiting, unspecified Status: Acute Plan # failure to thrive, severe protein calorie malnutrition # hypoglycemia, resolved -patient is doing poorly, poor p.o. intake, significant weight loss, temporal wasting -giving meal supplement Ensure t.i.d. (prefers vanilla) - looking for placement - will need outpatient palliative care -treated with supportive care, glucose normalized after treating with D10. now off D10 drip # chronic conditions -depression: Zoloft -bladder cancer 2018 -renal cell carcinoma left nephrectomy 07/2018 with metastasis to brain, bone, lungs. Was having chronic diarrhea from chemo on lomotil. pain control PRN oxycodone -hyperlipidemia -pericarditis from July 2023 related to chemotherapy. Chemo currently on hold Diet: Regular, supplements DVT prophylaxis: Lovenox Code status: Full code Disposition: Pending PT evaluation DS: Summary Hospital Course Hospital Course: Patient is 2-year-old male with past medical history of bladder cancer, renal cell carcinoma, metastasis the brain, bone and lungs. Who presented the ED with pair to thrive not eating or drinking. Patient was given Brilinta supplement and the opportunity to have a feeding tube placed. It was noted the patient denied that and decided to go home on hospice. Currently patient is stable he denies any current chest pain, shortness a breath, nausea, vomiting, constipation. He did have some diarrhea still. Patient was getting up and walking around. At this time he is doing okay labs and vital signs are stable. He was noted to be hypoglycemic throughout the admission however has resolved. Currently patient is stable for discharge and will be going home with hospice. Status at Discharge Functional status at discharge: uses cane/walker Overall status at discharge: patient is progressing back to baseline Time Spent with Patient Time attestation: Total time spent providing and/or coordinating discharge services: 48 minnutes Time spent: Greater than 30 minutes Specific discharge activities: Diagnostic testing, chart review, developing a treatment plan, education, care coordination documentation, physical exam, result review Exam Narrative: - GENERAL: Pleasant frail chronically ill-appearing male in no acute distress - EYES: EOMI. Anicteric. - HENT: Moist mucous membranes. - LUNGS: Clear to auscultation bilaterally, no wheezing, rhonchi, or rales. - CARDIOVASCULAR: Regular rate and rhythm. No murmur. No JVD. - ABDOMEN: Soft, non-tender and non-distended. No palpable masses. - EXTREMITIES: No edema. Peripheral pulses 2+. Non-tender. - NEUROLOGIC: No focal neurological deficits. CN II-XII grossly intact. Appears lethargic ( unchanged from yesterday) - PSYCHIATRIC: Awake, Alert and oriented x 3. appears depressed - SKIN: No rashes or lesions. Warm. - LYMPH: No cervical lymphadenopathy. DS: Data Data Completed and Pending Labs on day of discharge: Labs from last 24 hours 09/06/23 09/06/23 09/06/23 11:23 07:31 05:51 WBC 3.9 L RBC 3.64 L Hgb 11.3 L Hct 34.8 L MCV 95.6 MCH 31.0 MCHC 32.5 RDW 13.7 Plt Count 154 MPV
== END 2023-09-06 15:57 | disposition hospice, home (50) ==
LOC: ANHED 18:25 → ANHIMU 20:37 → ANH3MEDSUR 09-05 01:11
PROVIDERS: Internal Medicine; Student in an Organized Health Care Education/Training Program; Admitting Provider Hospitalist; Emergency Provider Emergency Medicine; PCP Emergency Medicine; Visit Provider Hospitalist
DX: E16.2 Hypoglycemia, unspecified (principal); K52.9 Noninfective gastroenteritis and colitis, unspecified; E83.52 Hypercalcemia; E86.0 Dehydration; E43 Unspecified severe protein-calorie malnutrition; Z68.1 Body mass index [BMI] 19.9 or less, adult; R62.7 Adult failure to thrive; R94.31 Abnormal electrocardiogram [ECG] [EKG]; C64.2 Malignant neoplasm of left kidney, except renal pelvis; C78.00 Secondary malignant neoplasm of unspecified lung; C79.51 Secondary malignant neoplasm of bone; C79.31 Secondary malignant neoplasm of brain; F32.A Depression, unspecified; R53.1 Weakness; I12.9 Hypertensive chronic kidney disease with stage 1 through stage 4 chronic kidney disease, or unspecified chronic kidney disease; N18.30 Chronic kidney disease, stage 3 unspecified; E78.2 Mixed hyperlipidemia; Z90.5 Acquired absence of kidney; F17.210 Nicotine dependence, cigarettes, uncomplicated; F12.90 Cannabis use, unspecified, uncomplicated; Z79.891 Long term (current) use of opiate analgesic; Z85.51 Personal history of malignant neoplasm of bladder
CPT/HCPCS: 36415; 70450; 80048; 80053; 81001; 82948; 83605; 83690; 84484; 85025; 85027; 85610; 85730; 93005; 93306; 96361; 96365; 96366; 96372; 96374; 96375; 96376; 97110; 97161; 97166; 97530; 97535; 99285; A9270; G0378; G0379; J1650; J2405; J7030